=== PATIENT | female | born 1945 | race American Indian/Alaskan Native ===

== ENCOUNTER 2021-08-24 13:55 | Inpatient (IN) | payer BC, MEDICARE ==
[2021-08-24 22:57] LABS: Basophils % (Auto) 0.4 % (0.0-1.8); Hematocrit 34.7 % (30.3-42.9); Hemoglobin 11.3 gm/dl (10.1-14.3); Mean Corpuscular HGB Conc 33 % (30-34); Mean Corpuscular Volume 92 fl (79-97); Monocytes # (Auto) 0.6 K/mm3 (0.0-0.8); Monocytes % (Auto) 7.8 % (0.0-7.3); Platelet Count 423 K/mm3 (140-440); Red Blood Count 3.79 M/mm3 (3.65-5.03); Red Cell Distribution Width 14.6 % (13.2-15.2)
[2021-08-24 23:14] LABS: Albumin 3.3 g/dL (3.9-5); Calcium 9.7 mg/dL (8.4-10.2)
[2021-08-25] MEDS ORDERED: SODIUM CHLORIDE 0.9% 500 ML 500 ML IV ONE (02:35)
[2021-08-25] MEDS ORDERED: SODIUM CHLORIDE 0.9% 1000 ML 1,000 ML IV ONE (02:37)
--- NOTE | 2021-08-25 02:38 | Emergency Department Report ---
ED General Adult HPI - General Chief complaint: Weakness Stated complaint: DIZZY/LOSS 25 POUNDS Time Seen by Provider: 08/25/21 02:22 Source: patient, family, RN notes reviewed, old records reviewed Mode of arrival: Wheelchair Limitations: No Limitations - History of Present Illness Initial comments: The patient was evaluated in the emergency department for symptoms described in the history of present illness. He/she was evaluated in the context of the global COVID-19 pandemic, which necessitated consideration that the patient might be at risk for infection with the virus that causes COVID-19. Institutional protocols and algorithms that pertain to the evaluation of patients at risk for COVID-19 are in a state of rapid change based on informati on released by regulatory bodies including the CDC and federal and state organizations. These policies and algorithms were followed during the patient's care in the emergency department. Please note that these policies, procedures and recommendations changed on a rapid basis. This is a 76-year-old female, with a history of hypertension, who presents to the emergency room with a complaint of dizziness and unsteady gait for 7 to 10 days, and right-sided abdominal pain for about 1 month. No headache, neck pain, chest pain, loss of vision, hematemesis, bright red blood per rectum, and she denies travel, surgery, immobilization, DVT/PE risk factors. -: Gradual, days(s) Location: abdomen Consistency: intermittent Improves with: none Worsens with: none - Related Data Allergies Allergy/AdvReac Type Severity Reaction Status Date / Time No Known Allergies Allergy Unverified 08/24/21 22:22 ED Review of Systems ROS: Stated complaint: DIZZY/LOSS 25 POUNDS Other details as noted in HPI Constitutional: malaise. denies: fever Eyes: denies: eye discharge ENT: denies: epistaxis Respiratory: denies: cough Cardiovascular: denies: chest pain, palpitations Gastrointestinal: abdominal pain. denies: nausea, vomiting, diarrhea Genitourinary: denies: dysuria Musculoskeletal: denies: back pain Neurological: weakness, abnormal gait ED Past Medical Hx - Past Medical History Hx Hypertension: Yes Hx Diabetes: Yes - Surgical History Past Surgical History?: No ED Physical Exam - General Limitations: Physical Limitation General appearance: alert, in no apparent distress - Head Head exam: Present: atraumatic, normocephalic - Eye Eye exam: Present: normal appearance, EOMI. Absent: nystagmus - ENT ENT exam: Present: normal exam, normal orophraynx, mucous membranes moist, normal external ear exam - Neck Neck exam: Present: normal inspection, full ROM. Absent: tenderness, meningism us - Respiratory Respiratory exam: Present: normal lung sounds bilaterally. Absent: respiratory distress, wheezes, rales, rhonchi, stridor, decreased breath sounds - Cardiovascular Cardiovascular Exam: Present: regular rate, normal rhythm, normal heart sounds. Absent: bradycardia, tachycardia, irregular rhythm, systolic murmur, diastolic murmur, rubs, gallop - GI/Abdominal GI/Abdominal exam: Present: soft. Absent: distended, tenderness, guarding, rebound, rigid, pulsatile mass - Extremities Exam Extremities exam: Present: normal inspection, full ROM, other (2+ pulses noted in the bilateral upper and lower extremities. There is no palpable cord. negative Homans sign. Muscular compartments are soft. The pelvis is stable.). Absent: pedal edema, calf tenderness - Back Exam Back exam: Present: normal inspection. Absent: tenderness, CVA tenderness (R), CVA tenderness (L), paraspinal tenderness, vertebral tenderness - Neurological Exam Neurological exam: Present: alert (There is no past-pointing. There is normal [id number]-chpk.), other (No facial droop. Tongue midline. Extraocular movements intact bilaterally. Facial sensation intact to light touch in V1, V2, V3 distribution bilaterally. 5 and a 5 strength in 4 extremities. Sensation intac t to light touch in 4 extremities.) - Psychiatric Psychiatric exam: Present: normal affect, normal mood - Skin Skin exam: Present: warm, dry, intact, normal color. Absent: rash ED Course Vital Signs 08/24/21 08/25/21 08/25/21 16:14 02:35 02:40 Temperature 97.5 F L Pulse Rate 123 H 84 79 Respiratory 18 12 Rate Blood Pressure 137/68 Blood Pressure 114/62 [Right] O2 Sat by Pulse 100 Oximetry 08/25/21 08/25/21 08/25/21 02:45 03:05 03:11 Temperature 98 F Pulse Rate 85 83 73 Respiratory 16 15 16 Rate Blood Pressure 114/62 114/62 108/57 Blood Pressure [Right] O2 Sat by Pulse Oximetry 08/25/21 08/25/21 08/25/21 03:15 03:16 03:31 Temperature Pulse Rate 87 87 Respiratory 12 16 Rate Blood Pressure 108/57 117/60 Blood Pressure [Right] O2 Sat by Pulse 94 100 Oximetry 08/25/21 08/25/21 08/25/21 03:45 04:01 04:15 Temperature Pulse Rate 104 H 89 96 H Respiratory 14 13 11 L Rate Blood Pressure 114/62 147/67 147/67 Blood Pressure [Right] O2 Sat by Pulse 94 100 93 Oximetry 08/25/21 08/25/21 08/25/21 04:31 04:45 05:01 Temperature Pulse Rate 87 88 84 Respiratory 13 15 14 Rate Blood Pressure 128/73 128/73 99/57 Blood Pressure [Right] O2 Sat by Pulse 100 100 100 Oximetry 08/25/21 08/25/21 05:15 05:31 Temperature Pulse Rate 91 H 87 Respiratory 14 17 Rate Blood Pressure 99/57 103/57 Blood Pressure [Right] O2 Sat by Pulse 100 99 Oximetry - Reevaluation(s) Reevaluation #1: 08/25/21 04:51 Differential diagnosis, include not limited to: Orthostasis, vagal event, structural cardiac disease, electrolyte derangement, dehydration, pneumonia, UTI, subacute stroke, colitis, diverticulitis, renal colic, appendicitis Assessment and plan: 76-year-old female with 2 complaints. First complaint is unsteady gait for 7 to 10 days She has a GCS of 15. Not a tPA candidate given that symptoms present for greate r than 4.[address] scan of the brain is negative for acute findings. Hold aspirin given concern for potential surgical condition with telemetry. Laboratory studies reviewed and appreciated. X-ray of the chest is unremarkable. Urinalysis is pending Right-sided abdominal pain is present for about a month. CT scan abdomen pelvis demonstrated hepatic abnormalities, possible choledocholithiasis, with pneumobilia. Contacted general surgery on-call, and gastroenterology on-call, Snow Tate and Dr Pearson, respectively. Discussed the patient's history, physical, laboratory studies and imaging studies and clinical impression. They will both follow in consultation. At this point in time, I think an abscess or acute infectious pathology is less likely, and I think malignancy is more likely. Nevertheless, we will cover with appropriate antibiotics, and make n.p.o. at this time. Coagulation parameters will be obtained. Awaiting callback from hospital physician to arrange admission. 08/25/21 04:52 08/25/21 05:56 Dr Shane Barahona to admit to [facility] ED Medical Decision Making - Lab Data Result diagrams: 08/24/21 22:37 08/24/21 22:37 Vital Signs 08/24/21 08/25/21 08/25/21 16:14 02:35 02:40 Temperature 97.5 F L Pulse Rate 123 H 84 79 Respiratory 18 12 Rate Blood Pressure 137/68 Blood Pressure 114/62 [Right] O2 Sat by Pulse 100 Oximetry 08/25/21 08/25/21 08/25/21 02:45 03:05 03:11 Temperature 98 F Pulse Rate 85 83 73 Respiratory 16 15 16 Rate Blood Pressure 114/62 114/62 108/57 Blood Pressure [Right] O2 Sat by Pulse Oximetry 08/25/21 08/25/21 03:15 03:16 Temperature Pulse Rate 87 Respiratory 12 Rate Blood Pressure 108/57 Blood Pressure [Right] O2 Sat by Pulse 94 Oximetry Lab Results 08/24/21 08/24/21 08/25/21 Range/Units 22:37 22:37 03:13 WBC 7.4 (4.5-11.0) K/mm3 RBC 3.79 (3.65-5.03) M/mm3 Hgb 11.3 (10.1-14.3) gm/dl Hct 34.7 (30.3-42.9) % MCV 92 (79-97) fl MCH 30 (28-32) pg MCHC 33 (30-34) % RDW 14.6 (13.2-15.2) % Plt Count 423 (140-440) K/mm3 Lymph % (Auto) 13.0 L (13.4-35.0) % Crawford % (Auto) 7.8 H (0.0-7.3) % Eos % (Auto) 0.0 (0.0-4.3) % Baso % (Auto) 0.4 (0.0-1.8) % Lymph # (Auto) 1.0 L (1.2-5.4) K/mm3 Crawford # (Auto) 0.6 (0.0-0.8) K/mm3 Eos # (Auto) 0.0 (0.0-0.4) K/mm3 Baso # (Auto) 0.0 (0.0-0.1) K/mm3 Seg Neutrophils % 78.8 H (40.0-70.0) % Seg Neutrophils # 5.8 (1.8-7.7) K/mm3 Sodium 136 L (137-145) mmol/L Potassium 4.1 (3.6-5.0) mmol/L Chloride 93.7 L (98-107) mmol/L Carbon Dioxide 20 L (22-30) mmol/L Anion Gap 26 mmol/L BUN 29 H (7-17) mg/dL Creatinine 1.3 H (0.6-1.2) mg/dL Estimated GFR 40 ml/min BUN/Creatinine Ratio 22 % Glucose 148 H (65-100) mg/dL Calcium 9.7 (8.4-10.2) mg/dL Magnesium 1.80 (1.7-2.3) mg/dL Total Bilirubin 0.40 (0.1-1.2) mg/dL AST 34 (5-40) units/L ALT 24 (7-56) units/L Alkaline Phosphatase 290 H (35-129) units/L Total Creatine Kinase 51 (30-135) units/L Troponin T (0.00-0.029) ng/mL Total Protein 6.9 (6.3-8.2) g/dL Albumin 3.3 L (3.9-5) g/dL Albumin/Globulin Ratio 0.9 % TSH (0.270-4.200) mlU/mL 08/25/21 08/25/21 Range/Units 03:13 03:13 WBC (4.5-11.0) K/mm3 RBC (3.65-5.03) M/mm3 Hgb (10.1-14.3) gm/dl Hct (30.3-42.9) % MCV (79-97) fl MCH (28-32) pg MCHC (30-34) % RDW (13.2-15.2) % Plt Count (140-440) K/mm3 Lymph % (Auto) (13.4-35.0) % Crawford % (Auto) (0.0-7.3) % Eos % (Auto) (0.0-4.3) % Baso % (Auto) (0.0-1.8) % Lymph # (Auto) (1.2-5.4) K/mm3 Crawford # (Auto) (0.0-0.8) K/mm3 Eos # (Auto) (0.0-0.4) K/mm3 Baso # (Auto) (0.0-0.1) K/mm3 Seg Neutrophils % (40.0-70.0) % Seg Neutrophils # (1.8-7.7) K/mm3 Sodium (137-145) mmol/L Potassium (3.6-5.0) mmol/L Chloride (98-107) mmol/L Carbon Dioxide (22-30) mmol/L Anion Gap mmol/L BUN (7-17) mg/dL Creatinine (0.6-1.2) mg/dL Estimated GFR ml/min BUN/Creatinine Ratio % Glucose (65-100) mg/dL Calcium (8.4-10.2) mg/dL Magnesium (1.7-2.3) mg/dL Total Bilirubin (0.1-1.2) mg/dL AST (5-40) units/L ALT (7-56) units/L Alkaline Phosphatase (35-129) units/L Total Creatine Kinase (30-135) units/L Troponin T < 0.010 (0.00-0.029) ng/mL Total Protein (6.3-8.2) g/dL Albumin (3.9-5) g/dL Albumin/Globulin Ratio % TSH 2.440 (0.270-4.200) mlU/mL - EKG Data -: EKG Interpreted by Ca EKG shows normal: sinus rhythm Rate: normal - EKG Data 08/25/21 04:48 The EKG is interpreted at 22: 34 Sinus rhythm, rate 82 bpm. Normal axis, normal P wave axis, motion artifact. QTC 4 3 ms. Low voltage. Poor R wave progression. Not a STEMI. No prior for comparison - Radiology Data Radiology results: pending, report reviewed, image reviewed CHEST 1 VIEW INDICATION / CLINICAL INFORMATION: weak dizzy. COMPARISON: None available. FINDINGS: SUPPORT DEVICES: None. HEART / MEDIASTINUM: No significant abnormality. LUNGS / PLEURA: No significant pulmonary or pleural abnormality. No pneumothorax. ADDITIONAL FINDINGS: No significant additional findings. IMPRESSION: 1. No acute findings. Signer Name: Cole Rosa MD Signed: 08/25/2021 2:35 AM Workstation Name: [id number] CT HEAD WITHOUT CONTRAST INDICATION / CLINICAL INFORMATION: dizzy w unsteady gait. TECHNIQUE: All CT scans at this location are performed using CT dose reduction for ALARA by means of automated exposure control. COMPARISON: None available. FINDINGS: HEMORRHAGE: None. EXTRA-AXIAL SPACES: Normal in size and morphology for the patient's age. VENTRICULAR SYSTEM: Normal in size and morphology for the patient's age. CEREBRAL PARENCHYMA: Mild bilateral basal ganglia calcifications. Mild periventricular microangiopathy No significant abnormality. No acute territorial infarct. MIDLINE SHIFT OR HERNIATION: None. CEREBELLUM / BRAINSTEM: No significant abnormality. ORBITS: Normal as visualized. SOFT TISSUES of HEAD: No significant abnormality. CALVARIUM: No significant abnormality. PARANASAL SINUSES / MASTOID AIR CELLS: Normal as visualized. ADDITIONAL FINDINGS: None. IMPRESSION: 1. No acute intracranial abnormality. 2. Mild microangiopathy Signer Name: Cole Rosa MD Signed: 08/25/2021 2:26 AM Workstation Name: [id number] CT ABDOMEN AND PELVIS WITHOUT CONTRAST INDICATION: rlq abd pain. TECHNIQUE: Axial CT images were obtained through the abdomen and pelvis without IV contrast. All CT scans at this location are performed using CT dose reduction for [employer] by means of automated exposure control. COMPARISON: None available. FINDINGS: LOWER CHEST: No significant abnormality. LIVER: Ill-defined 2.5 cm hypodense lesion posterior hepatic segment image 57 ill-defined 3 cm hypodense lesion anterior hepatic dome image 27. GALLBLADDER: Cholelithiasis BILE DUCTS: Large 2.2 cm stone possibly within distal common bile duct with moderate amount of pneumobilia noted. PANCREAS: No significant abnormality. SPLEEN: No significant abnormality. ADRENALS: No significant abnormality. RIGHT KIDNEY and URETER: No significant abnormality. LEFT KIDNEY and URETER: No significant abnormality. STOMACH and SMALL BOWEL: No significant abnormality. COLON: No significant abnormality. APPENDIX: No significant abnormality. PERITONEUM: No free fluid. No free air. No fluid collection. LYMPH NODES: No significant adenopathy. AORTA and ARTERIES: No significant abnormality. IVC and VEINS: No significant abnormality. URINARY BLADDER: No significant abnormality. REPRODUCTIVE ORGANS: No significant abnormality. ADDITIONAL FINDINGS: None. SKELETAL SYSTEM: No significant abnormality. IMPRESSION: 1. Choledocholithiasis with large distal common bile duct stone and moderate pneumobilia 2. 2 ill- defined hypodense lesions posterior hepatic segment and anterior hepatic dome likely represent hepatic abscesses. Hepatic metastases are considered less likely Signer Name: Cole Rosa MD Signed: 08/25/2021 2:33 AM Workstation Name: [id number] Critical care attestation.: If time is entered above; I have spent that time in minutes in the direct care of this critically ill patient, excluding procedure time. ED Disposition Clinical Impression: Right sided abdominal pain, Dizziness, Choledocholithiasis, Abnormal computed tomography of abdomen and pelvis Disposition: 09 ADMITTED INPATIENT Is pt being admited?: Yes Does the pt Need Aspirin: No Condition: Good
--- NOTE | 2021-08-25 03:31 | Cat Scan Report ---
CT HEAD WITHOUT CONTRAST INDICATION / CLINICAL INFORMATION: dizzy w unsteady gait. TECHNIQUE: All CT scans at this location are performed using CT dose reduction for ALARA by means of automated e xposure control. COMPARISON: None available. FINDINGS: HEMORRHAGE: None. EXTRA-AXIAL SPACES: Normal in size and morphology for the patient's age. VENTRICULAR SYSTEM: Normal in size and morphology for the patient's age. CEREBRAL PARENCHYMA: Mild bilateral basal ganglia calcifications. Mild periventricular microangiopath y No significant abnormality. No acute territorial infarct. MIDLINE SHIFT OR HERNIATION: None. CEREBELLUM / BRAINSTEM: No significant abnormality. ORBITS: Normal as visualized. SOFT TISSUES of HEAD: No significant abnormality. CALVARIUM: No significant abnormality. PARANASAL SINUSES / MASTOID AIR CELLS: Normal as visualized. ADDITIONAL FINDINGS: None. IMPRESSION: 1. No acute intracranial abnormality. 2. Mild microangiopathy Signer Name: Cole Rosa MD Signed: 08/25/2021 3:26 AM Workstation Name: [id number]
--- NOTE | 2021-08-25 03:37 | Cat Scan Report ---
CT ABDOMEN AND PELVIS WITHOUT CONTRAST INDICATION: rlq abd pain. TECHNIQUE: Axial CT images were obtained through the abdomen and pelvis without IV contrast. All CT scans at [facility] location are performed using CT dose reduction for ALARA by means of automated exposure control. COMPARISON: None available. FINDINGS: LOWER CHEST: No significant abnormality. LIVER: Ill-defined 2.5 cm hypodense lesion posterior hepatic segment image 57 ill-defined 3 cm hypode nse lesion anterior hepatic dome image 27. GALLBLADDER: Cholelithiasis BILE DUCTS: Large 2.2 cm stone possibly within distal common bile duct with moderate amount of pneumo bilia noted. PANCREAS: No significant abnormality. SPLEEN: No significant abnormality. ADRENALS: No significant abnormality. RIGHT KIDNEY and URETER: No significant abnormality. LEFT KIDNEY and URETER: No significant abnormality. STOMACH and SMALL BOWEL: No significant abnormality. COLON: No significant abnormality. APPENDIX: No significant abnormality. PERITONEUM: No free fluid. No free air. No fluid collection. LYMPH NODES: No significant adenopathy. AORTA and ARTERIES: No significant abnormality. IVC and VEINS: No significant abnormality. URINARY BLADDER: No significant abnormality. REPRODUCTIVE ORGANS: No significant abnormality. ADDITIONAL FINDINGS: None. SKELETAL SYSTEM: No significant abnormality. IMPRESSION: 1. Choledocholithiasis with large distal common bile duct stone and moderate pneumobilia 2. 2 ill-defined hypodense lesions posterior hepatic segment and anterior hepatic dome likely represe nt hepatic abscesses. Hepatic metastases are considered less likely Signer Name: Cole Rosa MD Signed: 08/25/2021 3:33 AM Workstation Name: [id number]
--- NOTE | 2021-08-25 03:39 | XRay Report ---
CHEST 1 VIEW INDICATION / CLINICAL INFORMATION: weak dizzy. COMPARISON: None available. FINDINGS: SUPPORT DEVICES: None. HEART / MEDIASTINUM: No significant abnormality. LUNGS / PLEURA: No significant pulmonary or pleural abnormality. No pneumothorax. ADDITIONAL FINDINGS: No significant additional findings. IMPRESSION: 1. No acute findings. Signer Name: Cole Rosa MD Signed: 08/25/2021 3:35 AM Workstation Name: [id number]
[2021-08-25] MEDS ORDERED: PIPERACIL/TAZOBACTA 4.5/NS 100 4.5 GM/100 ML VIAL IV ONE (04:22)
[2021-08-25 05:47] LABS: INR 0.96 (0.87-1.13)
[2021-08-25 05:53] LABS: Partial Thromboplastin Time 30.3 Sec. (24.2-36.6)
--- NOTE | 2021-08-25 06:12 | Ultrasound Report ---
LIMITED RUQ ABDOMINAL ULTRASOUND INDICATION / CLINICAL INFORMATION: cbd stone pneumonia bilia. COMPARISON: CT abdomen pelvis 08/25/2021 FINDINGS: PANCREAS: Visualized portions show no significant abnormality. ABDOMINAL AORTA: No significant abnormality. IVC: No significant abnormality.. LIVER: The liver measures 13.2 cm in length. Multiple solid liver masses. Moderate amount of pneumob faustino GALLBLADDER: Gallstones. Not well visualized sonographically secondary to heterogeneous liver pneumob faustino BILE DUCTS: Moderate pneumobilia. Common bile duct measures 4 mm. RIGHT KIDNEY: No significant abnormality visualized. FREE FLUID: None. ADDITIONAL FINDINGS: None. IMPRESSION: 1. Cholelithiasis . Gallbladder poorly visualized sonographically. Contrast-enhanced CT would be usef for further characterization. 2. Pneumobilia 3. Multiple solid liver masses Signer Name: Cole Rosa MD Signed: 08/25/2021 6:07 AM Workstation Name: [id number]
[2021-08-25] MEDS ORDERED: ONDANSETRON 4 MG/2 ML INJ IV PRN (07:13)
[2021-08-25] MEDS ORDERED: ALBUTEROL 2.5 MG/3 ML NEBU IH PRN (07:13)
[2021-08-25] MEDS ORDERED: NALOXONE 0.4 MG/1 ML INJ IV PRN (07:13)
--- NOTE | 2021-08-25 07:20 | History and Physical Report ---
History of Present Illness Date of examination: 08/25/21 Date of admission: 08/25/21 Medications and Allergies Allergies Allergy/AdvReac Type Severity Reaction Status Date / Time No Known Allergies Allergy Unverified 08/24/21 22:22 Active Meds: Active Medications Acetaminophen (Acetaminophen 325 Mg Tab) 650 mg PO Q4H PRN PRN Reason: Pain MILD(1-3)/Fever >100.5/[place] Albuterol (Albuterol 2.5 Mg/3 Ml Nebu) 2.5 mg IH Q4HRT PRN PRN Reason: Shortness Of Breath Famotidine (Famotidine 20 Mg/2 Ml Inj) 20 mg IV BID PK Heparin Sodium (Porcine) (Heparin 5,000 Unit/1 Ml Vial) 5,000 unit SUB-Q Q8HR PK Dextrose/Sodium Chloride (D5ns) 1,000 mls @ 100 mls/hr IV DIRECT PK Morphine Sulfate (Morphine 2 Mg/1 Ml Inj) 2 mg IV Q4H PRN PRN Reason: Pain, Moderate (4-6) Naloxone HCl (Naloxone 0.4 Mg/1 Ml Inj) 0.1 mg IV Q2MIN PRN PRN Reason: Res Rate </= 8 or 02 SAT < 92% Ondansetron HCl (Ondansetron 4 Mg/2 Ml Inj) 4 mg IV Q4H PRN PRN Reason: Nausea And Vomiting Sodium Chloride (Sodium Chloride 0.9% 10 Ml Flush Syringe) 10 ml IV BID PK Sodium Chloride (Sodium Chloride 0.9% 10 Ml Flush Syringe) 10 ml IV PRN PRN PRN Reason: LINE FLUSH Exam - Constitutional Vitals: Temp Pulse Resp BP Pulse Ox 98 F 84 14 117/63 100 08/25/21 03:11 08/25/21 06:45 08/25/21 06:45 08/25/21 06:45 08/25/21 06:45 HEART Score - HEART Score Troponin: Troponin T < 0.010 ng/mL (0.00-0.029) 08/25/21 03:13 Results - Labs CBC & Chem 7: 08/24/21 22:37 08/24/21 22:37 Labs: Laboratory Last Values WBC 7.4 K/mm3 (4.5-11.0) 08/24/21 22:37 RBC 3.79 M/mm3 (3.65-5.03) 08/24/21 22:37 Hgb 11.3 gm/dl (10.1-14.3) 08/24/21 22:37 Hct 34.7 % (30.3-42.9) 08/24/21 22:37 MCV 92 fl (79-97) 08/24/21 22:37 MCH 30 pg (28-32) 08/24/21 22:37 MCHC 33 % (30-34) 08/24/21 22:37 RDW 14.6 % (13.2-15.2) 08/24/21 22:37 Plt Count 423 K/mm3 (140-440) 08/24/21 22:37 Lymph % (Auto) 13.0 % (13.4-35.0) L 08/24/21 22:37 Ballard % (Auto) 7.8 % (0.0-7.3) H 08/24/21 22:37 Eos % (Auto) 0.0 % (0.0-4.3) 08/24/21 22:37 Baso % (Auto) 0.4 % (0.0-1.8) 08/24/21 22:37 Lymph # (Auto) 1.0 K/mm3 (1.2-5.4) L 08/24/21 22:37 Ballard # (Auto) 0.6 K/mm3 (0.0-0.8) 08/24/21 22:37 Eos # (Auto) 0.0 K/mm3 (0.0-0.4) 08/24/21 22:37 Baso # (Auto) 0.0 K/mm3 (0.0-0.1) 08/24/21 22:37 Seg Neutrophils % 78.8 % (40.0-70.0) H 08/24/21 22:37 Seg Neutrophils # 5.8 K/mm3 (1.8-7.7) 08/24/21 22:37 PT 13.8 Sec. (12.2-14.9) 08/25/21 05:12 INR 0.96 (0.87-1.13) 08/25/21 05:12 APTT 30.3 Sec. (24.2-36.6) 08/25/21 05:12 Sodium 136 mmol/L (137-145) L 08/24/21 22:37 Potassium 4.1 mmol/L (3.6-5.0) 08/24/21 22:37 Chloride 93.7 mmol/L (98-107) L 08/24/21 22:37 Carbon Dioxide 20 mmol/L (22-30) L 08/24/21 22:37 Anion Gap 26 mmol/L 08/24/21 22:37 BUN 29 mg/dL (7-17) H 08/24/21 22:37 Creatinine 1.3 mg/dL (0.6-1.2) H 08/24/21 22:37 Estimated GFR 40 ml/min 08/24/21 22:37 BUN/Creatinine Ratio 22 % 08/24/21 22:37 Glucose 148 mg/dL (65-100) H 08/24/21 22:37 Lactic Acid 1.50 mmol/L (0.7-2.0) 08/25/21 05:29 Calcium 9.7 mg/dL (8.4-10.2) 08/24/21 22:37 Magnesium 1.80 mg/dL (1.7-2.3) 08/25/21 03:13 Total Bilirubin 0.40 mg/dL (0.1-1.2) 08/24/21 22:37 AST 34 units/L (5-40) 08/24/21 22:37 ALT 24 units/L (7-56) 08/24/21 22:37 Alkaline Phosphatase 290 units/L (35-129) H 08/24/21 22:37 Total Creatine Kinase 51 units/L (30-135) 08/25/21 03:13 Troponin T < 0.010 ng/mL (0.00-0.029) 08/25/21 03:13 Total Protein 6.9 g/dL (6.3-8.2) 08/24/21 22:37 Albumin 3.3 g/dL (3.9-5) L 08/24/21 22:37 Albumin/Globulin Ratio 0.9 % 08/24/21 22:37 TSH 2.440 mlU/mL (0.270-4.200) 08/25/21 03:13 Assessment and Plan Assessment and plan: CTA/P 1. Choledocholithiasis with large distal common bile duct stone and moderate pneumobilia 2. 2 ill-defined hypodense lesions posterior hepatic segment and anterior hepatic dome likely represent hepatic abscesses. Hepatic metastases are considered less likely Ultrasound Abdomen 1. Cholelithiasis . Gallbladder poorly visualized sonographically. Contrast- enhanced CT would be useful for further characterization. 2. Pneumobilia 3. Multiple solid liver masses CXR 1. No acute findings.
[2021-08-25] MEDS ORDERED: D5W/0.9% NACL 1,000 ML IV SCH (08:00)
[2021-08-25] MEDS ORDERED: DEXTROSE 50% IN WATER (25GM) 50 ML SYRINGE IV PRN (08:23)
[2021-08-25 09:33] LABS: Calcium 8.3 mg/dL (8.4-10.2)
[2021-08-25] MEDS: FAMOTIDINE 20 MG/2 ML INJ IV SCH (09:48)
--- NOTE | 2021-08-25 09:58 | History and Physical Report ---
<ИВАН EARL - Last Filed: 08/25/21 16:24> History of Present Illness Date of examination: 08/25/21 Date of admission: 08/25/21 07:14 Chief complaint: Dizziness, unsteady gait, and right-sided abdominal pain History of present illness: This is a 76-year-old female with known past medical history of HTN and DM presented to the emergency room complaining of dizziness, unsteady gait for over a week, and right-sided abdominal pain for about 1 month. Patient reported that he symptoms started about a month ago when she started to experience intermittent sharp right abdominal pain on her right side. She stated that she noticed that the pain usually occurs in the evening and at night. She reported that the pain as an intermittent stabbing pain that is mainly localized on her right side. No alleviating nor exacerbating factors reported, and the pain is not associated with foods. Patient also reported dizziness/lightheadedness and unsteady gait that started about a week ago, poor appetite and over 25lbs of unintentional weight loss in the past couple of months. She denied any nausea or vomiting, no melena, no hematochezia, no fevers, nor night sweats, nor chills. Patient denied any direct contact with anyone who is sick or with known exposure to COVID 19. Per patient she received Both COVID vaccines and a recent booster. Patient was seen and examined in the ED. Patient is hemodynamically stable on RA. Denied any pain nor any discomfort at this time. No signs of any acute distress noted. Laboratory studies and imagings reviewed. CXR 1. No acute findings. CT head/Brain 1. No acute intracranial abnormality. 2. Mild microangiopathy CTA/P 1. Choledocholithiasis with large distal common bile duct stone and moderate pneumobilia 2. 2 ill-defined hypodense lesions posterior hepatic segment and anterior hepatic dome likely represent hepatic abscesses. Hepatic metastases are considered less likely Ultrasound Abdomen 1. Cholelithiasis . Gallbladder poorly visualized sonographically. Contrast- enhanced CT would be useful for further characterization. 2. Pneumobilia 3. Multiple solid liver masses General Surgery and GI already consulted in the ED. Patient is being admitted to the Med-Surg floor for further evaluation. Past History Past Medical History: diabetes, hypertension Past Surgical History: No surgical history Social history: alcohol abuse (Quit over 20 years ago) Family history: hypertension Medications and Allergies Allergies Allergy/AdvReac Type Severity Reaction Status Date / Time No Known Allergies Allergy Unverified 08/24/21 22:22 Home Medications Medication Instructions Recorded Confirmed Last Taken Type Amlodipine Besylate/Benazepril 1 each PO 08/25/21 1 Day Ago History [Amlodipine-Benazepril 5-40 mg] ~08/24/21 Active Meds: Active Medications Acetaminophen (Acetaminophen 325 Mg Tab) 650 mg PO Q4H PRN PRN Reason: Pain MILD(1-3)/Fever >100.5/[place] Albuterol (Albuterol 2.5 Mg/3 Ml Nebu) 2.5 mg IH Q4HRT PRN PRN Reason: Shortness Of Breath Dextrose (Dextrose 50% In Water (25gm) 50 Ml Syringe) 50 ml IV Q30MIN PRN; Protocol PRN Reason: Hypoglycemia Famotidine (Famotidine 20 Mg/2 Ml Inj) 20 mg IV DAILY PK Last Admin: 08/25/21 09:48 Dose: Not Given Heparin Sodium (Porcine) (Heparin 5,000 Unit/1 Ml Vial) 5,000 unit SUB-Q Q8HR PK Dextrose/Sodium Chloride (D5ns) 1,000 mls @ 100 mls/hr IV DIRECT PK Last Admin: 08/25/21 08:30 Dose: 100 mls/hr Insulin Human Regular (Insulin Regular, Human 100 Units/1 Ml) 0 units SUB-Q ACHS PK; Protocol Morphine Sulfate (Morphine 2 Mg/1 Ml Inj) 2 mg IV Q4H PRN PRN Reason: Pain, Moderate (4-6) Naloxone HCl (Naloxone 0.4 Mg/1 Ml Inj) 0.1 mg IV Q2MIN PRN PRN Reason: Res Rate </= 8 or 02 SAT < 92% Ondansetron HCl (Ondansetron 4 Mg/2 Ml Inj) 4 mg IV Q4H PRN PRN Reason: Nausea And Vomiting Sodium Chloride (Sodium Chloride 0.9% 10 Ml Flush Syringe) 10 ml IV BID PK Sodium Chloride (Sodium Chloride 0.9% 10 Ml Flush Syringe) 10 ml IV PRN PRN PRN Reason: LINE FLUSH Review of Systems All systems: negative Constitutional: weight loss, weakness, poor appetite, no fever, no chills, no sweats Ears, nose, mouth and throat: no headache, no vertigo Cardiovascular: lightheadedness, no chest pain, no orthopnea, no palpitations, no edema, no syncope, no leg edema Respiratory: no cough, no cough with sputum, no shortness of breath, no wheezing Gastrointestinal: abdominal pain (Right Side), loss of appetite, no nausea, no vomiting, no diarrhea, no constipation, no hematemesis, no coffee ground emesis, no melena, no hematochezia Genitourinary Female: no pelvic pain, no hematuria Musculoskeletal: gait dysfunction, loss of height, no frequent falls Integumentary: no rash, no pruritis, no redness, no sores, no wounds Neurological: lack of coordination, gait dysfunction, no numbness, no tingling, no syncope, no tremors, no vertigo, no headaches Psychiatric: change in appetite (Poor appetite), no anxiety, no memory loss, no suicidal ideation, no hallucinations, no depression, no confusion Allergic/Immunologic: no allergic rhinitis, no wheezing Exam - Constitutional Vitals: Temp Pulse Resp BP Pulse Ox 98 F 97 H 12 112/40 99 08/25/21 03:11 08/25/21 08:01 08/25/21 08:01 08/25/21 08:01 08/25/21 08:01 General appearance: Present: no acute distress, cachectic - EENT Eyes: Present: PERRL, EOM intact ENT: hearing intact - Neck Neck: Present: supple, normal ROM - Respiratory Respiratory effort: normal Respiratory: bilateral: diminished - Cardiovascular Rhythm: regular Heart Sounds: Present: S1 & S2 - Extremities Extremities: no ischemia, pulses intact, pulses symmetrical Peripheral Pulses: within normal limits - Abdominal General gastrointestinal: Present: soft, non-distended, normal bowel sounds Female genitourinary: Present: deferred - Rectal Rectal Exam: deferred - Integumentary Integumentary: Present: clear, warm, dry - Musculoskeletal Musculoskeletal: generalized weakness - Psychiatric Psychiatric: appropriate mood/affect, cooperative - Neurologic Neurologic: CNII-XII intact, moves all extremities - Allied Health Allied health notes reviewed: nursing HEART Score - HEART Score Troponin: Troponin T < 0.010 ng/mL (0.00-0.029) 08/25/21 03:13 Results - Labs CBC & Chem 7: 08/24/21 22:37 08/25/21 08:04 Labs: Laboratory Last Values WBC 7.4 K/mm3 (4.5-11.0) 08/24/21 22:37 RBC 3.79 M/mm3 (3.65-5.03) 08/24/21 22:37 Hgb 11.3 gm/dl (10.1-14.3) 08/24/21 22:37 Hct 34.7 % (30.3-42.9) 08/24/21 22:37 MCV 92 fl (79-97) 08/24/21 22:37 MCH 30 pg (28-32) 08/24/21 22:37 MCHC 33 % (30-34) 08/24/21 22:37 RDW 14.6 % (13.2-15.2) 08/24/21 22:37 Plt Count 423 K/mm3 (140-440) 08/24/21 22:37 Lymph % (Auto) 13.0 % (13.4-35.0) L 08/24/21 22:37 [place] % (Auto) 7.8 % (0.0-7.3) H 08/24/21 22:37 Eos % (Auto) 0.0 % (0.0-4.3) 08/24/21 22:37 Baso % (Auto) 0.4 % (0.0-1.8) 08/24/21 22:37 Lymph # (Auto) 1.0 K/mm3 (1.2-5.4) L 08/24/21 22:37 [place] # (Auto) 0.6 K/mm3 (0.0-0.8) 08/24/21 22:37 Eos # (Auto) 0.0 K/mm3 (0.0-0.4) 08/24/21 22:37 Baso # (Auto) 0.0 K/mm3 (0.0-0.1) 08/24/21 22:37 Seg Neutrophils % 78.8 % (40.0-70.0) H 08/24/21 22:37 Seg Neutrophils # 5.8 K/mm3 (1.8-7.7) 08/24/21 22:37 PT 13.8 Sec. (12.2-14.9) 08/25/21 05:12 INR 0.96 (0.87-1.13) 08/25/21 05:12 APTT 30.3 Sec. (24.2-36.6) 08/25/21 05:12 Sodium 140 mmol/L (137-145) 08/25/21 08:04 Potassium 4.3 mmol/L (3.6-5.0) 08/25/21 08:04 Chloride 100.1 mmol/L (98-107) 08/25/21 08:04 Carbon Dioxide 20 mmol/L (22-30) L 08/25/21 08:04 Anion Gap 24 mmol/L 08/25/21 08:04 BUN 28 mg/dL (7-17) H 08/25/21 08:04 Creatinine 1.2 mg/dL (0.6-1.2) 08/25/21 08:04 Estimated GFR 53 ml/min 08/25/21 08:04 BUN/Creatinine Ratio 23 % 08/25/21 08:04 Glucose 97 mg/dL (65-100) 08/25/21 08:04 Lactic Acid 1.50 mmol/L (0.7-2.0) 08/25/21 05:29 Calcium 8.3 mg/dL (8.4-10.2) L 08/25/21 08:04 Magnesium 1.80 mg/dL (1.7-2.3) 08/25/21 03:13 Total Bilirubin 0.40 mg/dL (0.1-1.2) 08/24/21 22:37 AST 34 units/L (5-40) 08/24/21 22:37 ALT 24 units/L (7-56) 08/24/21 22:37 Alkaline Phosphatase 290 units/L (35-129) H 08/24/21 22:37 Total Creatine Kinase 51 units/L (30-135) 08/25/21 03:13 Troponin T < 0.010 ng/mL (0.00-0.029) 08/25/21 03:13 Total Protein 6.9 g/dL (6.3-8.2) 08/24/21 22:37 Albumin 3.3 g/dL (3.9-5) L 08/24/21 22:37 Albumin/Globulin Ratio 0.9 % 08/24/21 22:37 TSH 2.440 mlU/mL (0.270-4.200) 08/25/21 03:13 Microbiology: Microbiology 08/25/21 05:29 Peripheral/Venous Blood Culture - Preliminary Culture in Progress Assessment and Plan Assessment and plan: This is a 76-year- old female with known past medical history of HTN and DM admitted for abdominal pain probably due to choledocholithiasis vs pneumobilia vs liver masses #Choledocholithiasis with Stone #Multiple Solid Liver Masses- c/f malignancy - Noted on CT abd/pelvis- Choledocholithiasis with large distal common bile duct stone. - GI consulted - Keep patient NPO for now - MRI of the abdomen pending - Continuous IVF - PRN analgesia for pain control - General Surgery also consulted - Depends on MRI findings, might need ONC consult for further w/up #Moderate Pneumobilia #Possible Hepatic Abscesses - Noted on CT abd/pelvis - Patient is afebrile, hemodynamically stable, with no leukocytosis - Received X1 dose of IV Zosyn in the ED - Cultures pending - Hold off IV Abx for now - F/u on culture data - Continuous IVF - General Surgery consulted #Intermittent Abdominal Pain - Pain is sharp and localized on the right site, no associated with foods, no alleviating nor exacerbating factors - most likely due to above - No pain at time of assessment - Denied any N/V - PRN analgesia for pain #Hyponatremia #Dehydration - S/p IV resuscitation in the ED - NA improved post IV hydration - Continue IVF hydration - Strict intake and output #Hypertension - BP stable - Resume home meds once list is available - Continue blood pressure monitor per protocol - Maintain SBP less than 160 #Diabetes Mellitus - Per patientSabrina discontinue by PCP since weight loss - Low dose SSI ACHS - Avoid Hypoglycemia #Abnormal weight Loss - Probably due to poor appetite vs malignancy - Keep NPO for now, continue cont. IVF - R/o malignancy as discussed above #GI/DVT Prophylaxis - PPI- Pepcid - Heparin SubQ - SCDs to bilateral lower extremities while in bed #Advance Care Planning - Thoroughly discussed disease process, care plan, diagnoses, and prognosis with patient at the bedside. Patient is full code. Patient aknowledged understanding and agreement with current care plan. All questions and concerns were addressed at this time. - Patient reported that her next living relative in the [place] is her sister, Graciela Cortes. She voiced that in case she becomes incapacitated and unable to make her own decision, her sister knows her wishes. The high probability of a clinically significant, sudden or life threatening deterioration of the [multiple] system(s) required my full and direct attention, intervention and personal management. The aggregate critical care time was [90] minutes. This time is in addition to time spent performing reported procedures but includes the following: [x] Data Review and interpretation [x] Patient assessment and monitoring of vital signs [x] Documentation [x] Medication orders and management Disposition Plan: ICU Total Time Spent with Patient (Minutes): 90 Advance Directives: No Plan of care discussed with patient/family: Yes <REGLA MARISCAL - Last Filed: 08/26/21 07:16> History of Present Illness Date of admission: 08/25/21 07:14 Medications and Allergies Active Meds: Active Medications Acetaminophen (Acetaminophen 325 Mg Tab) 650 mg PO Q4H PRN PRN Reason: Pain MILD(1-3)/Fever >100.5/[place] Albuterol (Albuterol 2.5 Mg/3 Ml Nebu) 2.5 mg IH Q4HRT PRN PRN Reason: Shortness Of Breath Dextrose (Dextrose 50% In Water (25gm) 50 Ml Syringe) 50 ml IV Q30MIN PRN; Protocol PRN Reason: Hypoglycemia Famotidine (Famotidine 20 Mg/2 Ml Inj) 20 mg IV DAILY [facility] Last Admin: 08/25/21 09:48 Dose: Not Given Heparin Sodium (Porcine) (Heparin 5,000 Unit/1 Ml Vial) 5,000 unit SUB-Q Q8HR [facility] Last Admin: 08/26/21 05:06 Dose: 5,000 unit Insulin Human Regular (Insulin Regular, Human 100 Units/1 Ml) 0 units SUB-Q ACHS [facility]; Protocol Last Admin: 08/25/21 22:00 Dose: Not Given Morphine Sulfate (Morphine 2 Mg/1 Ml Inj) 2 mg IV Q4H PRN PRN Reason: Pain, Moderate (4-6) Naloxone HCl (Naloxone 0.4 Mg/1 Ml Inj) 0.1 mg IV Q2MIN PRN PRN Reason: Res Rate </= 8 or 02 SAT < 92% Ondansetron HCl (Ondansetron 4 Mg/2 Ml Inj) 4 mg IV Q4H PRN PRN Reason: Nausea And Vomiting Sodium Chloride (Sodium Chloride 0.9% 10 Ml Flush Syringe) 10 ml IV BID PK Last Admin: 08/25/21 21:32 Dose: 10 ml Sodium Chloride (Sodium Chloride 0.9% 10 Ml Flush Syringe) 10 ml IV PRN PRN PRN Reason: LINE FLUSH Exam - Constitutional Vitals: Temp Pulse Resp BP Pulse Ox 98.7 F 100 H 16 111/52 100 08/26/21 03:21 08/26/21 03:21 08/26/21 03:21 08/26/21 03:21 08/26/21 03:21 HEART Score - HEART Score Troponin: Troponin T < 0.010 ng/mL (0.00-0.029) 08/25/21 03:13 Results - Labs CBC & Chem 7: 08/24/21 22:37 08/25/21 08:04 Labs: Laboratory Last Values WBC 7.4 K/mm3 (4.5-11.0) 08/24/21 22:37 RBC 3.79 M/mm3 (3.65-5.03) 08/24/21 22:37 Hgb 11.3 gm/dl (10.1-14.3) 08/24/21 22:37 Hct 34.7 % (30.3-42.9) 08/24/21 22:37 MCV 92 fl (79-97) 08/24/21 22:37 MCH 30 pg (28-32) 08/24/21 22:37 MCHC 33 % (30-34) 08/24/21 22:37 RDW 14.6 % (13.2-15.2) 08/24/21 22:37 Plt Count 423 K/mm3 (140-440) 08/24/21 22:37 Lymph % (Auto) 13.0 % (13.4-35.0) L 08/24/21 22:37 [place] % (Auto) 7.8 % (0.0-7.3) H 08/24/21 22:37 Eos % (Auto) 0.0 % (0.0-4.3) 08/24/21 22:37 Baso % (Auto) 0.4 % (0.0-1.8) 08/24/21 22:37 Lymph # (Auto) 1.0 K/mm3 (1.2-5.4) L 08/24/21 22:37 [place] # (Auto) 0.6 K/mm3 (0.0-0.8) 08/24/21 22:37 Eos # (Auto) 0.0 K/mm3 (0.0-0.4) 08/24/21 22:37 Baso # (Auto) 0.0 K/mm3 (0.0-0.1) 08/24/21 22:37 Seg Neutrophils % 78.8 % (40.0-70.0) H 08/24/21 22:37 Seg Neutrophils # 5.8 K/mm3 (1.8-7.7) 08/24/21 22:37 PT 13.8 Sec. (12.2-14.9) 08/25/21 05:12 INR 0.96 (0.87-1.13) 08/25/21 05:12 APTT 30.3 Sec. (24.2-36.6) 08/25/21 05:12 Sodium 140 mmol/L (137-145) 08/25/21 08:04 Potassium 4.3 mmol/L (3.6-5.0) 08/25/21 08:04 Chloride 100.1 mmol/L (98-107) 08/25/21 08:04 Carbon Dioxide 20 mmol/L (22-30) L 08/25/21 08:04 Anion Gap 24 mmol/L 08/25/21 08:04 BUN 28 mg/dL (7-17) H 08/25/21 08:04 Creatinine 1.2 mg/dL (0.6-1.2) 08/25/21 08:04 Estimated GFR 53 ml/min 08/25/21 08:04 BUN/Creatinine Ratio 23 % 08/25/21 08:04 Glucose 97 mg/dL (65-100) 08/25/21 08:04 POC Glucose 88 mg/dL (70-105) 08/25/21 22:09 Lactic Acid 1.50 mmol/L (0.7-2.0) 08/25/21 05:29 Calcium 8.3 mg/dL (8.4-10.2) L 08/25/21 08:04 Magnesium 1.80 mg/dL (1.7-2.3) 08/25/21 03:13 Total Bilirubin 0.40 mg/dL (0.1-1.2) 08/24/21 22:37 AST 34 units/L (5-40) 08/24/21 22:37 ALT 24 units/L (7-56) 08/24/21 22:37 Alkaline Phosphatase 290 units/L (35-129) H 08/24/21 22:37 Total Creatine Kinase 51 units/L (30-135) 08/25/21 03:13 Troponin T < 0.010 ng/mL (0.00-0.029) 08/25/21 03:13 Total Protein 6.9 g/dL (6.3-8.2) 08/24/21 22:37 Albumin 3.3 g/dL (3.9-5) L 08/24/21 22:37 Albumin/Globulin Ratio 0.9 % 08/24/21 22:37 TSH 2.440 mlU/mL (0.270-4.200) 08/25/21 03:13 Urine Color Yellow (Yellow) 08/26/21 05:09 Urine Turbidity Clear (Clear) 08/26/21 05:09 Urine pH 5.0 (5.0-7.0) 08/26/21 05:09 Ur Specific [place] 1.020 (1.003-1.030) 08/26/21 05:09 Urine Protein <15 mg/dl mg/dL (Negative) 08/26/21 05:09 Urine Glucose (UA) >=500 mg/dL (Negative) 08/26/21 05:09 Urine Ketones 20 mg/dL (Negative) 08/26/21 05:09 Urine Blood Mod (Negative) 08/26/21 05:09 Urine Nitrite Neg (Negative) 08/26/21 05:09 Urine Bilirubin Neg (Negative) 08/26/21 05:09 Urine Urobilinogen < 2.0 mg/dL (<2.0) 08/26/21 05:09 Ur Leukocyte Esterase Mod (Negative) 08/26/21 05:09 Urine WBC (Auto) 33.0 /HPF (0.0-6.0) H 08/26/21 05:09 Urine RBC (Auto) 6.0 /HPF (0.0-6.0) 08/26/21 05:09 U Epithel Cells (Auto) 3.0 /HPF (0-13.0) 08/26/21 05:09 Urine Bacteria (Auto) 1+ /HPF (Negative) 08/26/21 05:09 Calcium Oxalate Crystal Few 08/26/21 05:09 Urine Mucus 2+ /HPF 08/26/21 05:09 Microbiology: Microbiology 08/25/21 06:02 Peripheral/Venous Blood Culture - Preliminary Culture in Progress 08/25/21 05:29 Peripheral/Venous Blood Culture - Preliminary Culture in Progress Pham/IV: Voiding Method Toilet Assessment and Plan Assessment and plan: I saw and evaluated the patient. I agree with the findings and the plan of care as documented in the Nurse Practitioner's~note, with the following corrections and additions.
--- NOTE | 2021-08-25 10:08 | Gastroenterology Consultation ---
History of Present Illness - Reason for Consult Consult date: 08/25/21 - History of Present Illness Ms. Fay is a 76 y/o F who presented to the ED with x6 wks of abd pain, lack of appetite, and dizziness. Pt reports that her abd pain began x6 wks ago as "a stomachache" with intermittent pain. She reports that x2 wks ago the pain became more constant. She states that it occurs every PM at around 5pm. Pain starts in her RUQ, migrates to her umbilical region, then back to her RLQ. Denies N/V. Denies abd pain at present. Denies alcohol use (reports stopping x20 yrs ago). Past History Family history: hypertension Medications and Allergies Allergies Allergy/AdvReac Type Severity Reaction Status Date / Time No Known Allergies Allergy Unverified 08/24/21 22:22 Active Meds: Active Medications Acetaminophen (Acetaminophen 325 Mg Tab) 650 mg PO Q4H PRN PRN Reason: Pain MILD(1-3)/Fever >100.5/[place] Albuterol (Albuterol 2.5 Mg/3 Ml Nebu) 2.5 mg IH Q4HRT PRN PRN Reason: Shortness Of Breath Dextrose (Dextrose 50% In Water (25gm) 50 Ml Syringe) 50 ml IV Q30MIN PRN; Protocol PRN Reason: Hypoglycemia Famotidine (Famotidine 20 Mg/2 Ml Inj) 20 mg IV DAILY PK Last Admin: 08/25/21 09:48 Dose: Not Given Heparin Sodium (Porcine) (Heparin 5,000 Unit/1 Ml Vial) 5,000 unit SUB-Q Q8HR PK Dextrose/Sodium Chloride (D5ns) 1,000 mls @ 100 mls/hr IV DIRECT PK Stop: 08/25/21 19:30 Last Admin: 08/25/21 08:30 Dose: 100 mls/hr Insulin Human Regular (Insulin Regular, Human 100 Units/1 Ml) 0 units SUB-Q ACHS PK; Protocol Morphine Sulfate (Morphine 2 Mg/1 Ml Inj) 2 mg IV Q4H PRN PRN Reason: Pain, Moderate (4-6) Naloxone HCl (Naloxone 0.4 Mg/1 Ml Inj) 0.1 mg IV Q2MIN PRN PRN Reason: Res Rate </= 8 or 02 SAT < 92% Ondansetron HCl (Ondansetron 4 Mg/2 Ml Inj) 4 mg IV Q4H PRN PRN Reason: Nausea And Vomiting Sodium Chloride (Sodium Chloride 0.9% 10 Ml Flush Syringe) 10 ml IV BID PK Sodium Chloride (Sodium Chloride 0.9% 10 Ml Flush Syringe) 10 ml IV PRN PRN PRN Reason: LINE FLUSH Review of Systems - Review of Systems Constitutional: poor appetite Gastrointestinal: abdominal pain, loss of appetite Exam - Constitutional Vital Signs: Temp Pulse Resp BP Pulse Ox 98 F 97 H 12 112/40 99 08/25/21 03:11 08/25/21 08:01 08/25/21 08:01 08/25/21 08:01 08/25/21 08:01 General appearance: no acute distress - EENT ENT: hearing intact - Gastrointestinal General gastrointestinal: Present: non-tender - Integumentary Integumentary: Present: clear, warm, dry - Neurologic Neurological: alert and oriented x3 - Labs CBC & Chem 7: 08/24/21 22:37 08/25/21 08:04 Lab Results: Laboratory Results - last 24 hr 08/24/21 08/24/21 08/25/21 22:37 22:37 03:13 WBC 7.4 RBC 3.79 Hgb 11.3 Hct 34.7 MCV 92 MCH 30 MCHC 33 RDW 14.6 Plt Count 423 Lymph % (Auto) 13.0 L [place] % (Auto) 7.8 H Eos % (Auto) 0.0 Baso % (Auto) 0.4 Lymph # (Auto) 1.0 L [place] # (Auto) 0.6 Eos # (Auto) 0.0 Baso # (Auto) 0.0 Seg Neutrophils % 78.8 H Seg Neutrophils # 5.8 PT INR APTT Sodium 136 L Potassium 4.1 Chloride 93.7 L Carbon Dioxide 20 L Anion Gap 26 BUN 29 H Creatinine 1.3 H Estimated GFR 40 BUN/Creatinine Ratio 22 Glucose 148 H Lactic Acid Calcium 9.7 Magnesium 1.80 Total Bilirubin 0.40 AST 34 ALT 24 Alkaline Phosphatase 290 H Total Creatine Kinase 51 Troponin T Total Protein 6.9 Albumin 3.3 L Albumin/Globulin Ratio 0.9 TSH 08/25/21 08/25/21 08/25/21 03:13 03:13 05:12 WBC RBC Hgb Hct MCV MCH MCHC RDW Plt Count Lymph % (Auto) [place] % (Auto) Eos % (Auto) Baso % (Auto) Lymph # (Auto) [place] # (Auto) Eos # (Auto) Baso # (Auto) Seg Neutrophils % Seg Neutrophils # PT 13.8 INR 0.96 APTT 30.3 Sodium Potassium Chloride Carbon Dioxide Anion Gap BUN Creatinine Estimated GFR BUN/Creatinine Ratio Glucose Lactic Acid Calcium Magnesium Total Bilirubin AST ALT Alkaline Phosphatase Total Creatine Kinase Troponin T < 0.010 Total Protein Albumin Albumin/Globulin Ratio TSH 2.440 08/25/21 08/25/21 05:29 08:04 WBC RBC Hgb Hct MCV MCH MCHC RDW Plt Count Lymph % (Auto) [place] % (Auto) Eos % (Auto) Baso % (Auto) Lymph # (Auto) [place] # (Auto) Eos # (Auto) Baso # (Auto) Seg Neutrophils % Seg Neutrophils # PT INR APTT Sodium 140 Potassium 4.3 Chloride 100.1 Carbon Dioxide 20 L Anion Gap 24 BUN 28 H Creatinine 1.2 Estimated GFR 53 BUN/Creatinine Ratio 23 Glucose 97 Lactic Acid 1.50 Calcium 8.3 L Magnesium Total Bilirubin AST ALT Alkaline Phosphatase Total Creatine Kinase Troponin T Total Protein Albumin Albumin/Globulin Ratio TSH Assessment and Plan 1. CBD stones - US 08/25 revealed cholelithiasis, pneumobilia, multiple solid liver masses - CT 08/25 revealed choledocolithiasis w/ large CBD stone - Surgery has been consulted and was in room during exam, will plan for MRI this AM - Pending MRI results, possible ERCP
--- NOTE | 2021-08-25 10:19 | Consultation ---
History of Present Illness Consult date: 08/25/21 Reason for consult: abdominal pain Chief complaint: Loss of appetite, weight loss, right-sided abdominal pain - History of present illness History of present illness: 76-year-old female with a past medical history of hypertension, diabetes who presented to the emergency room with main complaint of lack of appetite for the last 2 months. The patient states that she is also been experiencing dizziness and lightheadedness for the past 2 to 3 weeks. She states when she started having a lack of appetite she also noted right-sided abdominal pain which starts in the evening and is intermittent. It is not associated with food. It is stabbing at times and does not radiate from the right side of the abdomen. She has never had pain like this before. No alleviating or exacerbating factors. The pain goes away on its own. She also notes significant weight loss which has been unintentional for the past several weeks. The patient states that she saw her primary care physician in June and had an ultrasound ordered. The ultrasound results were sent to her but she has not had follow-up yet. She denies nausea or vomiting, fevers or chills. No melena, hematochezia. Work-up in the emergency room including CT scan and ultrasound was performed. Surgery was consulted to evaluate abnormal results. Past History Past Medical History: diabetes, hypertension Past Surgical History: No surgical history Social history: no significant social history Family history: hypertension Medications and Allergies Allergies Allergy/AdvReac Type Severity Reaction Status Date / Time No Known Allergies Allergy Unverified 08/24/21 22:22 Active Meds: Active Medications Acetaminophen (Acetaminophen 325 Mg Tab) 650 mg PO Q4H PRN PRN Reason: Pain MILD(1-3)/Fever >100.5/[place] Albuterol (Albuterol 2.5 Mg/3 Ml Nebu) 2.5 mg IH Q4HRT PRN PRN Reason: Shortness Of Breath Dextrose (Dextrose 50% In Water (25gm) 50 Ml Syringe) 50 ml IV Q30MIN PRN; Protocol PRN Reason: Hypoglycemia Famotidine (Famotidine 20 Mg/2 Ml Inj) 20 mg IV DAILY PK Last Admin: 08/25/21 09:48 Dose: Not Given Heparin Sodium (Porcine) (Heparin 5,000 Unit/1 Ml Vial) 5,000 unit SUB-Q Q8HR [facility] Dextrose/Sodium Chloride (D5ns) 1,000 mls @ 100 mls/hr IV DIRECT PK Stop: 08/25/21 19:30 Last Admin: 08/25/21 08:30 Dose: 100 mls/hr Insulin Human Regular (Insulin Regular, Human 100 Units/1 Ml) 0 units SUB-Q ACHS PK; Protocol Morphine Sulfate (Morphine 2 Mg/1 Ml Inj) 2 mg IV Q4H PRN PRN Reason: Pain, Moderate (4-6) Naloxone HCl (Naloxone 0.4 Mg/1 Ml Inj) 0.1 mg IV Q2MIN PRN PRN Reason: Res Rate </= 8 or 02 SAT < 92% Ondansetron HCl (Ondansetron 4 Mg/2 Ml Inj) 4 mg IV Q4H PRN PRN Reason: Nausea And Vomiting Sodium Chloride (Sodium Chloride 0.9% 10 Ml Flush Syringe) 10 ml IV BID PK Sodium Chloride (Sodium Chloride 0.9% 10 Ml Flush Syringe) 10 ml IV PRN PRN PRN Reason: LINE FLUSH Review of Systems All systems: negative (10 point ROS performed and negative except for that listed in HPI) Exam Vital Signs Temp Pulse Resp BP Pulse Ox 97.5 F L 123 H 18 137/68 100 08/24/21 16:14 08/24/21 16:14 08/24/21 16:14 08/24/21 16:14 08/24/21 16:14 Narrative exam: Gen.: Awake, alert, oriented x3. No apparent distress. ENT: Trachea midline. No lymphadenopathy. No scleral icterus or conjunctival p allor CV: S1, S2 present Respiratory: No audible wheezes Abdomen: Soft, nondistended, nontender. No rebound, rigidity, guarding Extremities: No clubbing, cyanosis, edema Results - Labs 08/24/21 22:37 08/25/21 08:04 Abnormal lab results 08/24/21 08/24/21 08/25/21 Range/Units 22:37 22:37 08:04 Lymph % (Auto) 13.0 L (13.4-35.0) % [place] % (Auto) 7.8 H (0.0-7.3) % Lymph # (Auto) 1.0 L (1.2-5.4) K/mm3 Seg Neutrophils % 78.8 H (40.0-70.0) % Sodium 136 L (137-145) mmol/L Chloride 93.7 L (98-107) mmol/L Carbon Dioxide 20 L 20 L (22-30) mmol/L BUN 29 H 28 H (7-17) mg/dL Creatinine 1.3 H (0.6-1.2) mg/dL Glucose 148 H (65-100) mg/dL Calcium 8.3 L (8.4-10.2) mg/dL Alkaline Phosphatase 290 H (35-129) units/L Albumin 3.3 L (3.9-5) g/dL Diabetes panel 08/24/21 08/25/21 Range/Units 22:37 08:04 Sodium 136 L 140 (137-145) mmol/L Potassium 4.1 4.3 (3.6-5.0) mmol/L Chloride 93.7 L 100.1 (98-107) mmol/L Carbon Dioxide 20 L 20 L (22-30) mmol/L BUN 29 H 28 H (7-17) mg/dL Creatinine 1.3 H 1.2 (0.6-1.2) mg/dL Glucose 148 H 97 (65-100) mg/dL Calcium 9.7 8.3 L (8.4-10.2) mg/dL AST 34 (5-40) units/L ALT 24 (7-56) units/L Alkaline Phosphatase 290 H (35-129) units/L Total Protein 6.9 (6.3-8.2) g/dL Albumin 3.3 L (3.9-5) g/dL Thyroid panel 08/25/21 Range/Units 03:13 TSH 2.440 (0.270-4.200) mlU/mL Calcium panel 08/24/21 08/25/21 Range/Units 22:37 08:04 Calcium 9.7 8.3 L (8.4-10.2) mg/dL Albumin 3.3 L (3.9-5) g/dL Pituitary panel 08/24/21 08/25/21 08/25/21 Range/Units 22:37 03:13 08:04 Sodium 136 L 140 (137-145) mmol/L Potassium 4.1 4.3 (3.6-5.0) mmol/L Chloride 93.7 L 100.1 (98-107) mmol/L Carbon Dioxide 20 L 20 L (22-30) mmol/L BUN 29 H 28 H (7-17) mg/dL Creatinine 1.3 H 1.2 (0.6-1.2) mg/dL Glucose 148 H 97 (65-100) mg/dL Calcium 9.7 8.3 L (8.4-10.2) mg/dL TSH 2.440 (0.270-4.200) mlU/mL Adrenal panel 08/24/21 08/25/21 Range/Units 22:37 08:04 Sodium 136 L 140 (137-145) mmol/L Potassium 4.1 4.3 (3.6-5.0) mmol/L Chloride 93.7 L 100.1 (98-107) mmol/L Carbon Dioxide 20 L 20 L (22-30) mmol/L BUN 29 H 28 H (7-17) mg/dL Creatinine 1.3 H 1.2 (0.6-1.2) mg/dL Glucose 148 H 97 (65-100) mg/dL Calcium 9.7 8.3 L (8.4-10.2) mg/dL Total Bilirubin 0.40 (0.1-1.2) mg/dL AST 34 (5-40) units/L ALT 24 (7-56) units/L Alkaline Phosphatase 290 H (35-129) units/L Total Protein 6.9 (6.3-8.2) g/dL Albumin 3.3 L (3.9-5) g/dL - Imaging CT scan - abdomen: report reviewed, image reviewed CT scan - pelvis: report reviewed, image reviewed US - abdomen: report reviewed, image reviewed Assessment and Plan 76-year-old female with 1. Solid liver masses - worrisome for malignancy 2. Pneumobilia - ?biliary-enteric fistula vs infectious 3. Choledocholithiasis 4. Abnormal weight loss I reviewed the CT scan abdomen and pelvis and ultrasound images from 08/25/2021 independently along with in-house radiologist. Report from patient's ultrasound in June 2021 report also reviewed and did reveal solid liver masses concerning for malignancy. The pancreas and gallbladder were not well visualized on this study. Radiology report recommended CT scan or MRI for follow-up. Pt stable. Afebrile with normal WBC. Plan: 1. Obtain MRI abd/MRCP to further evaluate liver masses, gallbladder, bile ducts 2. NPO 3. IVF 4. prn pain control 5. GI on board 6. DVT ppx 7. obtain tumor markers 8. trend Bili, LFTs Pt's presentation and imaging worrisome for malignancy, possibly biliary primary with mets to liver. Will obtain additional imaging and follow up on GI recs. Patient currently stable without objective evidence of active infection. No acute surgical intervention at this time. I discussed the results of imaging w ith the patient in detail. Explained differential diagnosis and need for additional w/u. All questions answered. Thank you for this consultation. Please call with any questions or concerns. Evaluation and treatment of this patient was during the time of the national and state emergency arising from COVID19 coronavirus pandemic. Treatment and procedures performed meet the current and available best practice and guidelines for patient during the COVID pandemic.
--- NOTE | 2021-08-25 12:59 | Magnetic Resonance Report ---
MRI ABDOMEN WITHOUT AND WITH CONTRAST INDICATION / CLINICAL INFORMATION: liver masses, choledocolithiasis. TECHNIQUE: Multiplanar, multisequence series were obtained through the abdomen. Thin collimation coronal imaging and radial MRCP images. 15 cc of clariscan was administered intravenously for postcontrast imaging. COMPARISON: Ultrasound abdomen limited and CT abdomen pelvis without contrast performed earlier today FINDINGS: LIVER: At least 8 hypointense liver masses are identified consistent with a neoplastic process. One o f the largest masses measures 4.5 cm in the right hepatic lobe. GALLBLADDER: The gallbladder is not confidently identified. The gallbladder appears to be contracted and the gallbladder fossa. BILE DUCTS: The MRCP images demonstrates a very large filling defect in the mid common bile duct sharona uring up to 2.2 cm in diameter. There is severe diffuse intrahepatic biliary dilatation throughout th e liver. The distal common bile duct is decompressed with smooth tapering. PANCREAS: No significant abnormality. The pancreatic duct is unremarkable on MRCP imaging. SPLEEN: No significant abnormality. ADRENALS: No significant abnormality. RIGHT KIDNEY AND URETER: No significant abnormality. LEFT KIDNEY AND URETER: No significant abnormality. STOMACH AND VISUALIZED BOWEL: No significant abnormality. PERITONEUM: No free fluid. No free air. No fluid collection. LYMPH NODES: No significant adenopathy. AORTA and ARTERIES: No significant abnormality. IVC and VEINS: No significant abnormality. ADDITIONAL FINDINGS: None. SKELETAL SYSTEM: No suspicious bony lesions are detected in the visualized osseous structures. IMPRESSION: There are numerous liver masses consistent with a neoplastic or metastatic process. The primary lesi on is not clearly evident on this exam. The remaining visualized visceral organs are unremarkable. I suspect this could represent gallbladder cancer or cholangiocarcinoma. Very large stone in the mid common bile duct with diffuse intrahepatic biliary dilatation. Signer Name: Dereje Brantley Jr, MD Signed: 08/25/2021 12:55 PM Workstation Name: [id number]
--- NOTE | 2021-08-25 13:32 | Electrocardiograph Report ---
[facility] Test Date: 2021-08-24 Test Time: 22:34:53 Pat Name: SANTY SMITH Department: Room: A364 1 Gender: F Consumer Affairs Director: TWIN : 1945 Requested By: SERG DOTY Order Number: [id number] Reading MD: Hardeep Gary Measurements Intervals [place] Rate: 82 P: 61 MT: 127 QRS: 37 QRSD: 71 T: 60 QT: 346 QTc: 403 Interpretive Statements Sinus rhythm Poor R wave progression Low voltage, extremity and precordial leads No previous ECG available for comparison Electronically Signed On 08-25-2021 13:31:42 EDT by Hardeep Gary
[2021-08-25] MEDS: INSULIN REGULAR, HUMAN 100 UNITS/1 ML SUB-Q SCH ×3 (14:12→22:00)
[2021-08-25] MEDS: HEPARIN 5,000 UNIT/1 ML VIAL SUB-Q SCH ×2 (14:27→21:32)
--- NOTE | 2021-08-25 14:42 | Event Note ---
Date: 08/25/21 MRI abdomen reviewed with Dr. Brantley. multiple liver lesions concerning for carcinoma, possibly metastatic disease. Stone seen in common bile duct with intrahepatic biliary dilitation. Discussed CT guided liver mass biopsy with Dr. Brantley. Orders placed. Due to staffing issues in radiology, CT biopsy cannot be performed today and will be scheduled for Saturday. Discussed MRI results with Dr Pope GI. AST, ALT, BILI not elevated. No plans for ERCP today. Will start patient on a diet.
--- NOTE | 2021-08-25 16:28 | Hem/Onc Consultation ---
History of Present Illness - Reason for Consult Consult date: 08/25/21 - History of Present Illness Heme Data Review Patient was not seen This is a 76yo female who presented to [facility] ED with complaints of dizziness, unsteady gait for over a week, and right-sided abdominal pain for about 1 month. Past medical history of HTN and DM. Patient also reports dizziness/lightheadedness and unsteady gait that started about a week ago, poor appetite and over 25lbs of unintentional weight loss in the past couple of months. She denied any nausea or vomiting, no melena, no hematochezia, no fevers, nor night sweats, nor chills. MRI abdomen: multiple liver lesions concerning for carcinoma, possibly metastatic disease. Stone seen in common bile duct with intrahepatic biliary dilitation. Oncology consulted for evaluation of liver masses, concerning for malignancy. DATA REVIEWED BELOW IMP: Liver lesions, concerning for carcinoma PLAN: Labs to include AFP, ca19-9, cea, iron studies CT guided liver biopsy Formal consult to follow Laboratory Last Values WBC 7.4 K/mm3 (4.5-11.0) 08/24/21 22:37 Hgb 11.3 gm/dl (10.1-14.3) 08/24/21 22:37 Hct 34.7 % (30.3-42.9) 08/24/21 22:37 MCV 92 fl (79-97) 08/24/21 22:37 Plt Count 423 K/mm3 (140-440) 08/24/21 22:37 Lymph % (Auto) 13.0 % (13.4-35.0) L 08/24/21 22:37 Lymph # (Auto) 1.0 K/mm3 (1.2-5.4) L 08/24/21 22:37 PT 13.8 Sec. (12.2-14.9) 08/25/21 05:12 INR 0.96 (0.87-1.13) 08/25/21 05:12 APTT 30.3 Sec. (24.2-36.6) 08/25/21 05:12 Creatinine 1.2 mg/dL (0.6-1.2) 08/25/21 08:04 Total Bilirubin 0.40 mg/dL (0.1-1.2) 08/24/21 22:37 AST 34 units/L (5-40) 08/24/21 22:37 ALT 24 units/L (7-56) 08/24/21 22:37 Alkaline Phosphatase 290 units/L (35-129) H 08/24/21 22:37 Past History Past Medical History: diabetes, hypertension Past Surgical History: No surgical history Social history: alcohol abuse (Quit over 20 years ago) Family history: hypertension Medications and Allergies Allergies Allergy/AdvReac Type Severity Reaction Status Date / Time No Known Allergies Allergy Unverified 08/24/21 22:22 Home Medications Medication Instructions Recorded Confirmed Last Taken Type Amlodipine Besylate/Benazepril 1 each PO 08/25/21 1 Day Ago History [Amlodipine-Benazepril 5-40 mg] ~08/24/21 Active Meds: Active Medications Acetaminophen (Acetaminophen 325 Mg Tab) 650 mg PO Q4H PRN PRN Reason: Pain MILD(1-3)/Fever >100.5/[place] Albuterol (Albuterol 2.5 Mg/3 Ml Nebu) 2.5 mg IH Q4HRT PRN PRN Reason: Shortness Of Breath Dextrose (Dextrose 50% In Water (25gm) 50 Ml Syringe) 50 ml IV Q30MIN PRN; Protocol PRN Reason: Hypoglycemia Famotidine (Famotidine 20 Mg/2 Ml Inj) 20 mg IV DAILY [facility] Last Admin: 08/25/21 09:48 Dose: Not Given Heparin Sodium (Porcine) (Heparin 5,000 Unit/1 Ml Vial) 5,000 unit SUB-Q Q8HR [facility] Last Admin: 08/25/21 14:27 Dose: 5,000 unit Dextrose/Sodium Chloride (D5ns) 1,000 mls @ 100 mls/hr IV DIRECT PK Stop: 08/25/21 19:30 Last Admin: 08/25/21 08:30 Dose: 100 mls/hr Insulin Human Regular (Insulin Regular, Human 100 Units/1 Ml) 0 units SUB-Q ACHS [facility]; Protocol Last Admin: 08/25/21 14:12 Dose: Not Given Morphine Sulfate (Morphine 2 Mg/1 Ml Inj) 2 mg IV Q4H PRN PRN Reason: Pain, Moderate (4-6) Naloxone HCl (Naloxone 0.4 Mg/1 Ml Inj) 0.1 mg IV Q2MIN PRN PRN Reason: Res Rate </= 8 or 02 SAT < 92% Ondansetron HCl (Ondansetron 4 Mg/2 Ml Inj) 4 mg IV Q4H PRN PRN Reason: Nausea And Vomiting Sodium Chloride (Sodium Chloride 0.9% 10 Ml Flush Syringe) 10 ml IV BID PK Last Admin: 08/25/21 10:52 Dose: 10 ml Sodium Chloride (Sodium Chloride 0.9% 10 Ml Flush Syringe) 10 ml IV PRN PRN PRN Reason: LINE FLUSH Exam - Constitutional Vitals: Last Vital Signs Temp 98.7 F 08/25/21 10:47 Pulse 99 H 08/25/21 10:45 Resp 18 08/25/21 10:47 BP 132/71 08/25/21 10:47 Pulse Ox 99 08/25/21 10:45 Results - Labs lab Results: Laboratory Results - last 24 hr 08/24/21 08/24/21 08/25/21 22:37 22:37 03:13 WBC 7.4 RBC 3.79 Hgb 11.3 Hct 34.7 MCV 92 MCH 30 MCHC 33 RDW 14.6 Plt Count 423 Lymph % (Auto) 13.0 L [place] % (Auto) 7.8 H Eos % (Auto) 0.0 Baso % (Auto) 0.4 Lymph # (Auto) 1.0 L [place] # (Auto) 0.6 Eos # (Auto) 0.0 Baso # (Auto) 0.0 Seg Neutrophils % 78.8 H Seg Neutrophils # 5.8 PT INR APTT Sodium 136 L Potassium 4.1 Chloride 93.7 L Carbon Dioxide 20 L Anion Gap 26 BUN 29 H Creatinine 1.3 H Estimated GFR 40 BUN/Creatinine Ratio 22 Glucose 148 H POC Glucose Lactic Acid Calcium 9.7 Magnesium 1.80 Total Bilirubin 0.40 AST 34 ALT 24 Alkaline Phosphatase 290 H Total Creatine Kinase 51 Troponin T Total Protein 6.9 Albumin 3.3 L Albumin/Globulin Ratio 0.9 TSH 08/25/21 08/25/21 08/25/21 03:13 03:13 05:12 WBC RBC Hgb Hct MCV MCH MCHC RDW Plt Count Lymph % (Auto) [place] % (Auto) Eos % (Auto) Baso % (Auto) Lymph # (Auto) [place] # (Auto) Eos # (Auto) Baso # (Auto) Seg Neutrophils % Seg Neutrophils # PT 13.8 INR 0.96 APTT 30.3 Sodium Potassium Chloride Carbon Dioxide Anion Gap BUN Creatinine Estimated GFR BUN/Creatinine Ratio Glucose POC Glucose Lactic Acid Calcium Magnesium Total Bilirubin AST ALT Alkaline Phosphatase Total Creatine Kinase Troponin T < 0.010 Total Protein Albumin Albumin/Globulin Ratio TSH 2.440 08/25/21 08/25/21 08/25/21 05:29 08:04 10:49 WBC RBC Hgb Hct MCV MCH MCHC RDW Plt Count Lymph % (Auto) [place] % (Auto) Eos % (Auto) Baso % (Auto) Lymph # (Auto) [place] # (Auto) Eos # (Auto) Baso # (Auto) Seg Neutrophils % Seg Neutrophils # PT INR APTT Sodium 140 Potassium 4.3 Chloride 100.1 Carbon Dioxide 20 L Anion Gap 24 BUN 28 H Creatinine 1.2 Estimated GFR 53 BUN/Creatinine Ratio 23 Glucose 97 POC Glucose 110 H Lactic Acid 1.50 Calcium 8.3 L Magnesium Total Bilirubin AST ALT Alkaline Phosphatase Total Creatine Kinase Troponin T Total Protein Albumin Albumin/Globulin Ratio TSH 08/25/21 16:05 WBC RBC Hgb Hct MCV MCH MCHC RDW Plt Count Lymph % (Auto) [place] % (Auto) Eos % (Auto) Baso % (Auto) Lymph # (Auto) [place] # (Auto) Eos # (Auto) Baso # (Auto) Seg Neutrophils % Seg Neutrophils # PT INR APTT Sodium Potassium Chloride Carbon Dioxide Anion Gap BUN Creatinine Estimated GFR BUN/Creatinine Ratio Glucose POC Glucose 93 Lactic Acid Calcium Magnesium Total Bilirubin AST ALT Alkaline Phosphatase Total Creatine Kinase Troponin T Total Protein Albumin Albumin/Globulin Ratio TSH
[2021-08-26] MEDS: HEPARIN 5,000 UNIT/1 ML VIAL SUB-Q SCH ×3 (05:06→21:29)
[2021-08-26 05:33] LABS: Bacteria,Urine 1+ /HPF (Negative); Bilirubin,Urine NEG (Negative); Blood,Urine MOD (Negative); Calcium Oxalate Crystals,Urine FEW; Color,Urine Yellow (Yellow); Mucus,Urine 2+ /HPF; Protein,Urine <15 mg/dL mg/dL (Negative); Urobilinogen,Urine < 2.0 mg/dL (<2.0)
--- NOTE | 2021-08-26 07:23 | Progress Note ---
Assessment and Plan Assessment and plan: This is a 76-year-old female with known past medical history of HTN and DM presented to the emergency room complaining of dizziness, unsteady gait for over a week, and right-sided abdominal pain for about 1 month. Patient reported that he symptoms started about a month ago when she started to experience intermittent sharp right abdominal pain on her right side. She stated that she noticed that the pain usually occurs in the evening and at night. She reported that the pain as an intermittent stabbing pain that is mainly localized on her right side. No alleviating nor exacerbating factors reported, and the pain is not associated with foods. Patient also reported dizziness/lightheadedness and unsteady gait that started about a week ago, poor appetite and over 25lbs of unintentional weight loss in the past couple of months. She denied any nausea or vomiting, no melena, no hematochezia, no fevers, nor night sweats, nor chills. Patient denied any direct contact with anyone who is sick or with known exposure to COVID 19. Per patient she received Both COVID vaccines and a recent booster. Patient was seen and examined in the ED. Patient is hemodynamically stable on RA. Denied any pain nor any discomfort at this time. No signs of any acute distress noted. Laboratory studies and imagings reviewed. CXR 1. No acute findings. CT head/Brain 1. No acute intracranial abnormality. 2. Mild microangiopathy CTA/P 1. Choledocholithiasis with large distal common bile duct stone and moderate pneumobilia 2. 2 ill-defined hypodense lesions posterior hepatic segment and anterior hepatic dome likely represent hepatic abscesses. Hepatic metastases are considered less likely Ultrasound Abdomen 1. Cholelithiasis . Gallbladder poorly visualized sonographically. Contrast- enhanced CT would be useful for further characterization. 2. Pneumobilia 3. Multiple solid liver masses General Surgery and GI already consulted in the ED. Patient is being admitted to the Med-Surg floor for further evaluation. 08/26: Patient seen and examined, awaiting CT guided biopsy planned for saturday. GI following and will also evaluate timing of ERCP due to the noted "Very large stone in the mid common bile duct". Patient tolerating PO, She verbalized understanding. ABD MRI: IMPRESSION: There are numerous liver masses consistent with a neoplastic or metastatic process. The primary lesion is not clearly evident on this exam. The remaining visualized visceral organs are unremarkable. I suspect this could represent gallbladder cancer or cholangiocarcinoma. Very large stone in the mid common bile duct with diffuse intrahepatic biliary dilatation. #Choledocholithiasis with Stone #Multiple Solid Liver Masses- c/f malignancy - Noted on CT abd/pelvis- Choledocholithiasis with large distal common bile duct stone. - GI consulted - Keep patient NPO for now - MRI of the abdomen pending - Continuous IVF - PRN analgesia for pain control - General Surgery also consulted - Depends on MRI findings, might need ONC consult for further w/up #Acute Cystits #Moderate Pneumobilia #Possible Hepatic Abscesses - Noted on CT abd/pelvis - Patient is afebrile, hemodynamically stable, with no leukocytosis - Received X1 dose of IV Zosyn in the ED - Cultures pending - Hold off IV Abx for now - F/u on culture data - Continuous IVF - General Surgery consulted #Intermittent Abdominal Pain - Pain is sharp and localized on the right site, no associated with foods, no alleviating nor exacerbating factors - most likely due to above - No pain at time of assessment - Denied any N/V - PRN analgesia for pain #Hyponatremia #Dehydration - S/p IV resuscitation in the ED - NA improved post IV hydration - Continue IVF hydration - Strict intake and output #Hypertension - BP stable - Resume home meds once list is available - Continue blood pressure monitor per protocol - Maintain SBP less than 160 #Diabetes Mellitus - Per patient, Januvia discontinue by PCP since weight loss - Low dose SSI ACHS - Avoid Hypoglycemia #Abnormal weight Loss - Probably due to poor appetite vs malignancy - Keep NPO for now, continue cont. IVF - R/o malignancy as discussed above #GI/DVT Prophylaxis - PPI- Pepcid - Heparin SubQ - SCDs to bilateral lower extremities while in bed #Advance Care Planning - Thoroughly discussed disease process, care plan, diagnoses, and prognosis with patient at the bedside. Patient is full code. Patient aknowledged understanding and agreement with current care plan. All questions and concerns were addressed at this time. - Patient reported that her next living relative in the [place] is her sister, Graciela Cortes. She voiced that in case she becomes incapacitated and unable to make her own decision, her sister knows her wishes. History Interval history: Patient seen and examined resting comfortable. Hospitalist Physical - Physical exam Narrative exam: General appearance: Present: no acute distress, cachectic - EENT Eyes: Present: PERRL, EOM intact ENT: hearing intact - Neck Neck: Present: supple, normal ROM - Respiratory Respiratory effort: normal Respiratory: bilateral: diminished - Cardiovascular Rhythm: regular Heart Sounds: Present: S1 & S2 - Extremities Extremities: no ischemia, pulses intact, pulses symmetrical Peripheral Pulses: within normal limits - Abdominal General gastrointestinal: Present: soft, non-distended, normal bowel sounds Female genitourinary: Present: deferred - Rectal Rectal Exam: deferred - Integumentary Integumentary: Present: clear, warm, dry - Musculoskeletal Musculoskeletal: generalized weakness - Psychiatric Psychiatric: appropriate mood/affect, cooperative - Neurologic Neurologic: CNII-XII intact, moves all extremities - Allied Health Allied health notes reviewed: nursing - Constitutional Vitals: Temp Pulse Resp BP Pulse Ox 98.7 F 100 H 16 111/52 100 08/26/21 03:21 08/26/21 03:21 08/26/21 03:21 08/26/21 03:21 08/26/21 03:21 General appearance: Present: no acute distress, cachectic HEART Score - HEART Score Troponin: Troponin T < 0.010 ng/mL (0.00-0.029) 08/25/21 03:13 Results - Labs CBC & Chem 7: 08/26/21 06:38 08/26/21 06:38 Labs: Laboratory Last Values WBC 7.4 K/mm3 (4.5-11.0) 08/24/21 22:37 RBC 3.79 M/mm3 (3.65-5.03) 08/24/21 22:37 Hgb 11.3 gm/dl (10.1-14.3) 08/24/21 22:37 Hct 34.7 % (30.3-42.9) 08/24/21 22:37 MCV 92 fl (79-97) 08/24/21 22:37 MCH 30 pg (28-32) 08/24/21 22:37 MCHC 33 % (30-34) 08/24/21 22:37 RDW 14.6 % (13.2-15.2) 08/24/21 22:37 Plt Count 423 K/mm3 (140-440) 08/24/21 22:37 Lymph % (Auto) 13.0 % (13.4-35.0) L 08/24/21 22:37 [place] % (Auto) 7.8 % (0.0-7.3) H 08/24/21 22:37 Eos % (Auto) 0.0 % (0.0-4.3) 08/24/21 22:37 Baso % (Auto) 0.4 % (0.0-1.8) 08/24/21 22:37 Lymph # (Auto) 1.0 K/mm3 (1.2-5.4) L 08/24/21 22:37 [place] # (Auto) 0.6 K/mm3 (0.0-0.8) 08/24/21 22:37 Eos # (Auto) 0.0 K/mm3 (0.0-0.4) 08/24/21 22:37 Baso # (Auto) 0.0 K/mm3 (0.0-0.1) 08/24/21 22:37 Seg Neutrophils % 78.8 % (40.0-70.0) H 08/24/21 22:37 Seg Neutrophils # 5.8 K/mm3 (1.8-7.7) 08/24/21 22:37 PT 13.8 Sec. (12.2-14.9) 08/25/21 05:12 INR 0.96 (0.87-1.13) 08/25/21 05:12 APTT 30.3 Sec. (24.2-36.6) 08/25/21 05:12 Sodium 140 mmol/L (137-145) 08/25/21 08:04 Potassium 4.3 mmol/L (3.6-5.0) 08/25/21 08:04 Chloride 100.1 mmol/L (98-107) 08/25/21 08:04 Carbon Dioxide 20 mmol/L (22-30) L 08/25/21 08:04 Anion Gap 24 mmol/L 08/25/21 08:04 BUN 28 mg/dL (7-17) H 08/25/21 08:04 Creatinine 1.2 mg/dL (0.6-1.2) 08/25/21 08:04 Estimated GFR 53 ml/min 08/25/21 08:04 BUN/Creatinine Ratio 23 % 08/25/21 08:04 Glucose 97 mg/dL (65-100) 08/25/21 08:04 POC Glucose 88 mg/dL (70-105) 08/25/21 22:09 Lactic Acid 1.50 mmol/L (0.7-2.0) 08/25/21 05:29 Calcium 8.3 mg/dL (8.4-10.2) L 08/25/21 08:04 Magnesium 1.80 mg/dL (1.7-2.3) 08/25/21 03:13 Total Bilirubin 0.40 mg/dL (0.1-1.2) 08/24/21 22:37 AST 34 units/L (5-40) 08/24/21 22:37 ALT 24 units/L (7-56) 08/24/21 22:37 Alkaline Phosphatase 290 units/L (35-129) H 08/24/21 22:37 Total Creatine Kinase 51 units/L (30-135) 08/25/21 03:13 Troponin T < 0.010 ng/mL (0.00-0.029) 08/25/21 03:13 Total Protein 6.9 g/dL (6.3-8.2) 08/24/21 22:37 Albumin 3.3 g/dL (3.9-5) L 08/24/21 22:37 Albumin/Globulin Ratio 0.9 % 08/24/21 22:37 TSH 2.440 mlU/mL (0.270-4.200) 08/25/21 03:13 Urine Color Yellow (Yellow) 08/26/21 05:09 Urine Turbidity Clear (Clear) 08/26/21 05:09 Urine pH 5.0 (5.0-7.0) 08/26/21 05:09 Ur Specific [place] 1.020 (1.003-1.030) 08/26/21 05:09 Urine Protein <15 mg/dl mg/dL (Negative) 08/26/21 05:09 Urine Glucose (UA) >=500 mg/dL (Negative) 08/26/21 05:09 Urine Ketones 20 mg/dL (Negative) 08/26/21 05:09 Urine Blood Mod (Negative) 08/26/21 05:09 Urine Nitrite Neg (Negative) 08/26/21 05:09 Urine Bilirubin Neg (Negative) 08/26/21 05:09 Urine Urobilinogen < 2.0 mg/dL (<2.0) 08/26/21 05:09 Ur Leukocyte Esterase Mod (Negative) 08/26/21 05:09 Urine WBC (Auto) 33.0 /HPF (0.0-6.0) H 08/26/21 05:09 Urine RBC (Auto) 6.0 /HPF (0.0-6.0) 08/26/21 05:09 U Epithel Cells (Auto) 3.0 /HPF (0-13.0) 08/26/21 05:09 Urine Bacteria (Auto) 1+ /HPF (Negative) 08/26/21 05:09 Calcium Oxalate Crystal Few 08/26/21 05:09 Urine Mucus 2+ /HPF 08/26/21 05:09 Microbiology: Microbiology 08/25/21 06:02 Peripheral/Venous Blood Culture - Preliminary Culture in Progress 08/25/21 05:29 Peripheral/Venous Blood Culture - Preliminary Culture in Progress Pham/IV: Voiding Method Toilet Active Medications - Current Medications Current Medications: Generic Name Dose Route Start Last Admin Trade Name Freq PRN Reason Stop Dose Admin Acetaminophen 650 mg 08/25/21 07:13 Acetaminophen 325 Mg Tab PO Q4H PRN Pain MILD(1-3)/Fever >100.5/[place] Albuterol 2.5 mg 08/25/21 07:13 Albuterol 2.5 Mg/3 Ml Nebu IH Q4HRT PRN Shortness Of Breath Dextrose 50 ml 08/25/21 08:23 Dextrose 50% In Water (25gm) 50 Ml Syringe IV Q30MIN PRN Hypoglycemia Protocol Famotidine 20 mg 08/25/21 10:00 08/25/21 09:48 Famotidine 20 Mg/2 Ml Inj IV Not Given DAILY PK Heparin Sodium (Porcine) 5,000 unit 08/25/21 14:00 08/26/21 05:06 Heparin 5,000 Unit/1 Ml Vial SUB-Q 5,000 unit Q8HR PK Administration Insulin Human Regular 0 units 08/25/21 11:30 08/25/21 22:00 Insulin Regular, Human 100 Units/1 Ml SUB-Q Not Given ACHS PK Protocol Morphine Sulfate 2 mg 08/25/21 07:13 Morphine 2 Mg/1 Ml Inj IV Q4H PRN Pain, Moderate (4-6) Naloxone HCl 0.1 mg 08/25/21 07:13 Naloxone 0.4 Mg/1 Ml Inj IV Q2MIN PRN Res Rate </= 8 or 02 SAT < 92% Ondansetron HCl 4 mg 08/25/21 07:13 Ondansetron 4 Mg/2 Ml Inj IV Q4H PRN Nausea And Vomiting Sodium Chloride 10 ml 08/25/21 10:00 08/25/21 21:32 Sodium Chloride 0.9% 10 Ml Flush Syringe IV 10 ml BID PK Administration Sodium Chloride 10 ml 08/25/21 07:13 Sodium Chloride 0.9% 10 Ml Flush Syringe IV PRN PRN LINE FLUSH Nutrition/Malnutrition Assess - Dietary Evaluation Nutrition/Malnutrition Findings: Nutrition Notes Start: 08/25/21 12:28 Freq: Status: Active Protocol: Document 08/25/21 12:28 STEF (Rec: 08/25/21 12:44 STEF [id number]) Nutrition Notes Need for Assessment generated from: MD Order,Education Initial or Follow up Brief Note Current Diagnosis Diabetes,Hypertension Other Pertinent Diagnosis Choledocolithiasis, Solid Liver Mass, Abdominal Pain, Abnormal Weight Loss. Current Diet NPO (since 08/25 04:31). Height 5 ft 4 in Weight 50.802 kg [place] Body Weight (kg) 54.54 BMI 19.2 Weight change and time frame None provided at admission. Weight Status Appropriate Subjective/Other Information RD consult for nutrition education assessment. Pt currently on NPO. Pt is on Room Air, O2 saturation @ 100%, according to O2 Delivery Assessment notes. Bedside swallowing assessment passed, according to Swallow Screen notes. Pt states having loss more that 25 lb during the last couple of months and experiencing poor appetite, according to History & Physical notes. PO intake held due to pending MRIand other studies, according to Progress notes. Pt still in critical condition , not a candidate for Nutrition Education at the time, will assess feasibility on F/U. Percent of energy/protein needs met: Pt currently on NPO. Nutrition Intervention Follow-Up By: 08/28/21 Additional Comments Nutrition education will be provided at F/U, if feasible. When pertinent, start monitoring food tolerance, %PO intake of meals, and BM.
[2021-08-26 07:28] LABS: Basophils % (Auto) 0.6 % (0.0-1.8); Eosinophils % (Auto) 0.4 % (0.0-4.3); Hematocrit 28.1 % (30.3-42.9); Hemoglobin 9.1 gm/dl (10.1-14.3); Lymphocytes # (Auto) 0.8 K/mm3 (1.2-5.4); Lymphocytes % (Auto) 10.7 % (13.4-35.0); Mean Corpuscular HGB Conc 33 % (30-34); Mean Corpuscular Volume 90 fl (79-97); Monocytes # (Auto) 0.8 K/mm3 (0.0-0.8); Monocytes % (Auto) 10.4 % (0.0-7.3); Platelet Count 353 K/mm3 (140-440)
[2021-08-26 07:48] LABS: Alanine Aminotransferase 47 units/L (7-56); Albumin 2.7 g/dL (3.9-5); BUN/Creatinine Ratio 24; Blood Urea Nitrogen 19 mg/dL (7-17); Calcium 8.3 mg/dL (8.4-10.2); Hemolysis Index 2; Iron 32 ug/dL (37-170); Total Iron Binding Capacity 135 mcg/dL (250-450)
[2021-08-26] MEDS: FAMOTIDINE 20 MG/2 ML INJ IV SCH (11:03)
[2021-08-26] MEDS: INSULIN REGULAR, HUMAN 100 UNITS/1 ML SUB-Q SCH ×3 (11:17→16:38)
--- NOTE | 2021-08-26 15:04 | Gastroenterology Progress Note ---
Assessment and Plan 1. Liver masses - concerning for malignancy, unclear primary, tumor markers pending. CT guided biopsy pending per IR (Saturday) 2. CBD stone/biliary dilatation - no signs of cholangitis at present time. monitor liver enzymes, reports gas pains with solid intake, so recommend clears for now Subjective Date of service: 08/26/21 Principal diagnosis: abd pain, liver lesions Interval history: pt feeling okay, complains of "gas" pains with po intake. no vomiting or fevers/chills Objective - Constitutional Vitals: Temp Pulse Resp BP Pulse Ox 97.8 F 81 18 111/65 100 08/26/21 11:19 08/26/21 11:19 08/26/21 11:19 08/26/21 11:19 08/26/21 11:19 General appearance: no acute distress - Respiratory Respiratory effort: normal Respiratory: bilateral: CTA - Cardiovascular Rhythm: regular - Gastrointestinal General gastrointestinal: Present: soft, tender (right sided) - Neurologic Neurological: alert and oriented x3 - Labs CBC & Chem 7: 08/26/21 06:38 08/26/21 06:38 Labs: Laboratory Results - last 24 hr 08/25/21 08/25/21 08/26/21 16:05 22:09 05:09 WBC RBC Hgb Hct MCV MCH MCHC RDW Plt Count Lymph % (Auto) [place] % (Auto) Eos % (Auto) Baso % (Auto) Lymph # (Auto) [place] # (Auto) Eos # (Auto) Baso # (Auto) Seg Neutrophils % Seg Neutrophils # Sodium Potassium Chloride Carbon Dioxide Anion Gap BUN Creatinine Estimated GFR BUN/Creatinine Ratio Glucose POC Glucose 93 88 Calcium Iron TIBC Total Bilirubin AST ALT Alkaline Phosphatase Total Protein Albumin Albumin/Globulin Ratio Urine Color Yellow Urine Turbidity Clear Urine pH 5.0 Ur Specific [place] 1.020 Urine Protein <15 mg/dl Urine Glucose (UA) >=500 Urine Ketones 20 Urine Blood Mod Urine Nitrite Neg Urine Bilirubin Neg Urine Urobilinogen < 2.0 Ur Leukocyte Esterase Mod Urine WBC (Auto) 33.0 H Urine RBC (Auto) 6.0 U Epithel Cells (Auto) 3.0 Urine Bacteria (Auto) 1+ Calcium Oxalate Crystal Few Urine Mucus 2+ 08/26/21 08/26/21 08/26/21 06:38 06:38 07:45 WBC 7.7 RBC 3.10 L Hgb 9.1 L Hct 28.1 L D MCV 90 MCH 29 MCHC 33 RDW 15.0 Plt Count 353 Lymph % (Auto) 10.7 L [place] % (Auto) 10.4 H Eos % (Auto) 0.4 Baso % (Auto) 0.6 Lymph # (Auto) 0.8 L [place] # (Auto) 0.8 Eos # (Auto) 0.0 Baso # (Auto) 0.0 Seg Neutrophils % 77.9 H Seg Neutrophils # 6.0 Sodium 140 Potassium 3.5 L Chloride 105.9 Carbon Dioxide 23 Anion Gap 15 BUN 19 H Creatinine 0.8 Estimated GFR > 60 BUN/Creatinine Ratio 24 Glucose 163 H POC Glucose 163 H Calcium 8.3 L Iron 32 L TIBC 135 L Total Bilirubin 0.30 AST 109 H ALT 47 Alkaline Phosphatase 352 H Total Protein 5.7 L Albumin 2.7 L Albumin/Globulin Ratio 0.9 Urine Color Urine Turbidity Urine pH Ur Specific [place] Urine Protein Urine Glucose (UA) Urine Ketones Urine Blood Urine Nitrite Urine Bilirubin Urine Urobilinogen Ur Leukocyte Esterase Urine WBC (Auto) Urine RBC (Auto) U Epithel Cells (Auto) Urine Bacteria (Auto) Calcium Oxalate Crystal Urine Mucus 08/26/21 11:19 WBC RBC Hgb Hct MCV MCH MCHC RDW Plt Count Lymph % (Auto) [place] % (Auto) Eos % (Auto) Baso % (Auto) Lymph # (Auto) [place] # (Auto) Eos # (Auto) Baso # (Auto) Seg Neutrophils % Seg Neutrophils # Sodium Potassium Chloride Carbon Dioxide Anion Gap BUN Creatinine Estimated GFR BUN/Creatinine Ratio Glucose POC Glucose 123 H Calcium Iron TIBC Total Bilirubin AST ALT Alkaline Phosphatase Total Protein Albumin Albumin/Globulin Ratio Urine Color Urine Turbidity Urine pH Ur Specific [place] Urine Protein Urine Glucose (UA) Urine Ketones Urine Blood Urine Nitrite Urine Bilirubin Urine Urobilinogen Ur Leukocyte Esterase Urine WBC (Auto) Urine RBC (Auto) U Epithel Cells (Auto) Urine Bacteria (Auto) Calcium Oxalate Crystal Urine Mucus
[2021-08-26] MEDS: MORPHINE 2 MG/1 ML INJ IV PRN (19:01)
[2021-08-27] MEDS: INSULIN REGULAR, HUMAN 100 UNITS/1 ML SUB-Q SCH ×5 (00:27→22:00)
[2021-08-27] MEDS: HEPARIN 5,000 UNIT/1 ML VIAL SUB-Q SCH ×3 (06:03→21:59)
--- NOTE | 2021-08-27 07:39 | Progress Note ---
Assessment and Plan Assessment and plan: This is a 76-year-old female with known past medical history of HTN and DM presented to the emergency room complaining of dizziness, unsteady gait for over a week, and right-sided abdominal pain for about 1 month. Patient reported that he symptoms started about a month ago when she started to experience intermittent sharp right abdominal pain on her right side. She stated that she noticed that the pain usually occurs in the evening and at night. She reported that the pain as an intermittent stabbing pain that is mainly localized on her right side. No alleviating nor exacerbating factors reported, and the pain is not associated with foods. Patient also reported dizziness/lightheadedness and unsteady gait that started about a week ago, poor appetite and over 25lbs of unintentional weight loss in the past couple of months. She denied any nausea or vomiting, no melena, no hematochezia, no fevers, nor night sweats, nor chills. Patient denied any direct contact with anyone who is sick or with known exposure to COVID 19. Per patient she received Both COVID vaccines and a recent booster. Patient was seen and examined in the ED. Patient is hemodynamically stable on RA. Denied any pain nor any discomfort at this time. No signs of any acute distress noted. Laboratory studies and imagings reviewed. CXR 1. No acute findings. CT head/Brain 1. No acute intracranial abnormality. 2. Mild microangiopathy CTA/P 1. Choledocholithiasis with large distal common bile duct stone and moderate pneumobilia 2. 2 ill-defined hypodense lesions posterior hepatic segment and anterior hepatic dome likely represent hepatic abscesses. Hepatic metastases are considered less likely Ultrasound Abdomen 1. Cholelithiasis . Gallbladder poorly visualized sonographically. Contrast- enhanced CT would be useful for further characterization. 2. Pneumobilia 3. Multiple solid liver masses General Surgery and GI already consulted in the ED. Patient is being admitted to the Med-Surg floor for further evaluation. 08/26: Patient seen and examined, awaiting CT guided biopsy planned for saturday. GI following and will also evaluate timing of ERCP due to the noted "Very large stone in the mid common bile duct". Patient tolerating PO, She verbalized understanding. ABD MRI: IMPRESSION: There are numerous liver masses consistent with a neoplastic or metastatic process. The primary lesion is not clearly evident on this exam. The remaining visualized visceral organs are unremarkable. I suspect this could represent gallbladder cancer or cholangiocarcinoma. Very large stone in the mid common bile duct with diffuse intrahepatic biliary dilatation. 08/27: Patient remains clinically stable improving some. She is planned for CT- guided biopsy of liver mass highly suspicious for malignancy of unknown primary at this time. I discussed with GI no urgency for an ERCP in regards to her common bile duct stone. No evidence of cholangitis at this time #Choledocholithiasis with Stone #Multiple Solid Liver Masses- c/f malignancy - Noted on CT abd/pelvis- Choledocholithiasis with large distal common bile duct stone. - GI consulted - Keep patient NPO for now - MRI of the abdomen pending - Continuous IVF - PRN analgesia for pain control - General Surgery also consulted - Depends on MRI findings, might need ONC consult for further w/up #Acute Cystits #Moderate Pneumobilia #Possible Hepatic Abscesses - Noted on CT abd/pelvis - Patient is afebrile, hemodynamically stable, with no leukocytosis - Received X1 dose of IV Zosyn in the ED - Cultures pending - Hold off IV Abx for now - F/u on culture data - Continuous IVF - General Surgery consulted #Intermittent Abdominal Pain - Pain is sharp and localized on the right site, no associated with foods, no alleviating nor exacerbating factors - most likely due to above - No pain at time of assessment - Denied any N/V - PRN analgesia for pain #Hyponatremia #Dehydration - S/p IV resuscitation in the ED - NA improved post IV hydration - Continue IVF hydration - Strict intake and output #Hypertension - BP stable - Resume home meds once list is available - Continue blood pressure monitor per protocol - Maintain SBP less than 160 #Diabetes Mellitus - Per patient, Januvia discontinue by PCP since weight loss - Low dose SSI ACHS - Avoid Hypoglycemia #Abnormal weight Loss - Probably due to poor appetite vs malignancy - Keep NPO for now, continue cont. IVF - R/o malignancy as discussed above #GI/DVT Prophylaxis - PPI- Pepcid - Heparin SubQ - SCDs to bilateral lower extremities while in bed #Advance Care Planning - Thoroughly discussed disease process, care plan, diagnoses, and prognosis with patient at the bedside. Patient is full code. Patient aknowledged understanding and agreement with current care plan. All questions and concerns were addressed at this time. - Patient reported that her next living relative in the [place] is her sister, Graciela Cortes. She voiced that in case she becomes incapacitated and unable to make her own decision, her sister knows her wishes. History Interval history: Patient seen and examined resting comfortable. Still with intermittent abdominal pain but much improved Hospitalist Physical - Physical exam Narrative exam: General appearance: Present: no acute distress, cachectic - EENT Eyes: Present: PERRL, EOM intact ENT: hearing intact - Neck Neck: Present: supple, normal ROM - Respiratory Respiratory effort: normal Respiratory: bilateral: diminished - Cardiovascular Rhythm: regular Heart Sounds: Present: S1 & S2 - Extremities Extremities: no ischemia, pulses intact, pulses symmetrical Peripheral Pulses: within normal limits - Abdominal General gastrointestinal: Present: soft, non-distended, normal bowel sounds Female genitourinary: Present: deferred - Rectal Rectal Exam: deferred - Integumentary Integumentary: Present: clear, warm, dry - Musculoskeletal Musculoskeletal: generalized weakness - Psychiatric Psychiatric: appropriate mood/affect, cooperative - Neurologic Neurologic: CNII-XII intact, moves all extremities - Allied Health Allied health notes reviewed: nursing - Constitutional Vitals: Temp Pulse Resp BP Pulse Ox 98.1 F 84 16 120/67 100 08/26/21 23:34 08/27/21 04:25 08/27/21 04:25 08/27/21 04:25 08/27/21 04:25 General appearance: Present: no acute distress, cachectic HEART Score - HEART Score Troponin: Troponin T < 0.010 ng/mL (0.00-0.029) 08/25/21 03:13 Results - Labs CBC & Chem 7: 08/26/21 06:38 08/26/21 06:38 Labs: Laboratory Last Values WBC 7.7 K/mm3 (4.5-11.0) 08/26/21 06:38 RBC 3.10 M/mm3 (3.65-5.03) L 08/26/21 06:38 Hgb 9.1 gm/dl (10.1-14.3) L 08/26/21 06:38 Hct 28.1 % (30.3-42.9) L D 08/26/21 06:38 MCV 90 fl (79-97) 08/26/21 06:38 MCH 29 pg (28-32) 08/26/21 06:38 MCHC 33 % (30-34) 08/26/21 06:38 RDW 15.0 % (13.2-15.2) 08/26/21 06:38 Plt Count 353 K/mm3 (140-440) 08/26/21 06:38 Lymph % (Auto) 10.7 % (13.4-35.0) L 08/26/21 06:38 [place] % (Auto) 10.4 % (0.0-7.3) H 08/26/21 06:38 Eos % (Auto) 0.4 % (0.0-4.3) 08/26/21 06:38 Baso % (Auto) 0.6 % (0.0-1.8) 08/26/21 06:38 Lymph # (Auto) 0.8 K/mm3 (1.2-5.4) L 08/26/21 06:38 [place] # (Auto) 0.8 K/mm3 (0.0-0.8) 08/26/21 06:38 Eos # (Auto) 0.0 K/mm3 (0.0-0.4) 08/26/21 06:38 Baso # (Auto) 0.0 K/mm3 (0.0-0.1) 08/26/21 06:38 Seg Neutrophils % 77.9 % (40.0-70.0) H 08/26/21 06:38 Seg Neutrophils # 6.0 K/mm3 (1.8-7.7) 08/26/21 06:38 PT 13.8 Sec. (12.2-14.9) 08/25/21 05:12 INR 0.96 (0.87-1.13) 08/25/21 05:12 APTT 30.3 Sec. (24.2-36.6) 08/25/21 05:12 Sodium 140 mmol/L (137-145) 08/26/21 06:38 Potassium 3.5 mmol/L (3.6-5.0) L 08/26/21 06:38 Chloride 105.9 mmol/L (98-107) 08/26/21 06:38 Carbon Dioxide 23 mmol/L (22-30) 08/26/21 06:38 Anion Gap 15 mmol/L 08/26/21 06:38 BUN 19 mg/dL (7-17) H 08/26/21 06:38 Creatinine 0.8 mg/dL (0.6-1.2) 08/26/21 06:38 Estimated GFR > 60 ml/min 08/26/21 06:38 BUN/Creatinine Ratio 24 % 08/26/21 06:38 Glucose 163 mg/dL (65-100) H 08/26/21 06:38 POC Glucose 107 mg/dL (70-105) H 08/26/21 21:49 Lactic Acid 1.50 mmol/L (0.7-2.0) 08/25/21 05:29 Calcium 8.3 mg/dL (8.4-10.2) L 08/26/21 06:38 Magnesium 1.80 mg/dL (1.7-2.3) 08/25/21 03:13 Iron 32 ug/dL (37-170) L 08/26/21 06:38 TIBC 135 mcg/dL (250-450) L 08/26/21 06:38 Total Bilirubin 0.30 mg/dL (0.1-1.2) 08/26/21 06:38 AST 109 units/L (5-40) H 08/26/21 06:38 ALT 47 units/L (7-56) 08/26/21 06:38 Alkaline Phosphatase 352 units/L (35-129) H 08/26/21 06:38 Total Creatine Kinase 51 units/L (30-135) 08/25/21 03:13 Troponin T < 0.010 ng/mL (0.00-0.029) 08/25/21 03:13 Total Protein 5.7 g/dL (6.3-8.2) L 08/26/21 06:38 Albumin 2.7 g/dL (3.9-5) L 08/26/21 06:38 Albumin/Globulin Ratio 0.9 % 08/26/21 06:38 Carcinoembryonic Ag 21.8 ng/mL (0.0-2.4) H 08/25/21 08:04 CA 19-9 Antigen 7 U/mL (<34) 08/25/21 08:04 TSH 2.440 mlU/mL (0.270-4.200) 08/25/21 03:13 Urine Color Yellow (Yellow) 08/26/21 05:09 Urine Turbidity Clear (Clear) 08/26/21 05:09 Urine pH 5.0 (5.0-7.0) 08/26/21 05:09 Ur Specific [place] 1.020 (1.003-1.030) 08/26/21 05:09 Urine Protein <15 mg/dl mg/dL (Negative) 08/26/21 05:09 Urine Glucose (UA) >=500 mg/dL (Negative) 08/26/21 05:09 Urine Ketones 20 mg/dL (Negative) 08/26/21 05:09 Urine Blood Mod (Negative) 08/26/21 05:09 Urine Nitrite Neg (Negative) 08/26/21 05:09 Urine Bilirubin Neg (Negative) 08/26/21 05:09 Urine Urobilinogen < 2.0 mg/dL (<2.0) 08/26/21 05:09 Ur Leukocyte Esterase Mod (Negative) 08/26/21 05:09 Urine WBC (Auto) 33.0 /HPF (0.0-6.0) H 08/26/21 05:09 Urine RBC (Auto) 6.0 /HPF (0.0-6.0) 08/26/21 05:09 U Epithel Cells (Auto) 3.0 /HPF (0-13.0) 08/26/21 05:09 Urine Bacteria (Auto) 1+ /HPF (Negative) 08/26/21 05:09 Calcium Oxalate Crystal Few 08/26/21 05:09 Urine Mucus 2+ /HPF 08/26/21 05:09 Microbiology: Microbiology 08/25/21 06:02 Peripheral/Venous Blood Culture - Preliminary NO GROWTH AFTER 24 HOURS 08/25/21 05:29 Peripheral/Venous Blood Culture - Preliminary NO GROWTH AFTER 24 HOURS Pham/IV: Voiding Method Toilet Active Medications - Current Medications Current Medications: Generic Name Dose Route Start Last Admin Trade Name Freq PRN Reason Stop Dose Admin Acetaminophen 650 mg 08/25/21 07:13 Acetaminophen 325 Mg Tab PO Q4H PRN Pain MILD(1-3)/Fever >100.5/[place] Albuterol 2.5 mg 08/25/21 07:13 Albuterol 2.5 Mg/3 Ml Nebu IH Q4HRT PRN Shortness Of Breath Dextrose 50 ml 08/25/21 08:23 Dextrose 50% In Water (25gm) 50 Ml Syringe IV Q30MIN PRN Hypoglycemia Protocol Famotidine 20 mg 08/25/21 10:00 08/26/21 11:03 Famotidine 20 Mg/2 Ml Inj IV 20 mg DAILY PK Administration Heparin Sodium (Porcine) 5,000 unit 08/25/21 14:00 08/27/21 06:03 Heparin 5,000 Unit/1 Ml Vial SUB-Q 5,000 unit Q8HR PK Administration Insulin Human Regular 0 units 08/25/21 11:30 08/27/21 00:27 Insulin Regular, Human 100 Units/1 Ml SUB-Q Not Given ACHS PK Protocol Morphine Sulfate 2 mg 08/25/21 07:13 08/26/21 19:01 Morphine 2 Mg/1 Ml Inj IV 2 mg Q4H PRN Administration Pain, Moderate (4-6) Naloxone HCl 0.1 mg 08/25/21 07:13 Naloxone 0.4 Mg/1 Ml Inj IV Q2MIN PRN Res Rate </= 8 or 02 SAT < 92% Ondansetron HCl 4 mg 08/25/21 07:13 Ondansetron 4 Mg/2 Ml Inj IV Q4H PRN Nausea And Vomiting Sodium Chloride 10 ml 08/25/21 10:00 08/27/21 00:29 Sodium Chloride 0.9% 10 Ml Flush Syringe IV 10 ml BID PK Administration Sodium Chloride 10 ml 08/25/21 07:13 Sodium Chloride 0.9% 10 Ml Flush Syringe IV PRN PRN LINE FLUSH Nutrition/Malnutrition Assess - Dietary Evaluation Nutrition/Malnutrition Findings: Nutrition Notes Start: 08/25/21 12:28 Freq: Status: Active Protocol: Document 08/25/21 12:28 STEF (Rec: 08/25/21 12:44 STEF [id number]) Nutrition Notes Need for Assessment generated from: MD Order,Education Initial or Follow up Brief Note Current Diagnosis Diabetes,Hypertension Other Pertinent Diagnosis Choledocolithiasis, Solid Liver Mass, Abdominal Pain, Abnormal Weight Loss. Current Diet NPO (since 08/25 04:31). Height 5 ft 4 in Weight 50.802 kg [place] Body Weight (kg) 54.54 BMI 19.2 Weight change and time frame None provided at admission. Weight Status Appropriate Subjective/Other Information RD consult for nutrition education assessment. Pt currently on NPO. Pt is on Room Air, O2 saturation @ 100%, according to O2 Delivery Assessment notes. Bedside swallowing assessment passed, according to Swallow Screen notes. Pt states having loss more that 25 lb during the last couple of months and experiencing poor appetite, according to History & Physical notes. PO intake held due to pending MRIand other studies, according to Progress notes. Pt still in critical condition , not a candidate for Nutrition Education at the time, will assess feasibility on F/U. Percent of energy/protein needs met: Pt currently on NPO. Nutrition Intervention Follow-Up By: 08/28/21 Additional Comments Nutrition education will be provided at F/U, if feasible. When pertinent, start monitoring food tolerance, %PO intake of meals, and BM.
[2021-08-27] MEDS: FAMOTIDINE 20 MG/2 ML INJ IV SCH (09:51)
--- NOTE | 2021-08-27 10:05 | Gastroenterology Progress Note ---
Assessment and Plan 1. Liver masses - concerning for malignancy, unclear primary, tumor markers pending. CT guided biopsy pending per IR (tomorrow/Saturday) 2. CBD stone/biliary dilatation - no signs of cholangitis at present time. monitor liver enzymes, await diagnostic work-up for liver lesions as no urgent indication for ercp at this time. Subjective Date of service: 08/27/21 Principal diagnosis: abd pain, liver lesions Interval history: no events overnight. tolerating clears. no n/v or fevers/chills Objective - Constitutional Vitals: Temp Pulse Resp BP Pulse Ox 98.1 F 84 16 120/67 100 08/26/21 23:34 08/27/21 04:25 08/27/21 04:25 08/27/21 04:25 08/27/21 04:25 General appearance: no acute distress - Respiratory Respiratory effort: normal Respiratory: bilateral: CTA - Gastrointestinal General gastrointestinal: Present: soft, tender (right sided ), non-distended - Labs CBC & Chem 7: 08/26/21 06:38 08/26/21 06:38 Labs: Laboratory Results - last 24 hr 08/25/21 08/25/21 08/26/21 08:04 08:04 11:19 POC Glucose 123 H Carcinoembryonic Ag 21.8 H CA 19-9 Antigen 7 08/26/21 08/26/21 08/27/21 15:53 21:49 07:55 POC Glucose 96 107 H 96 Carcinoembryonic Ag CA 19-9 Antigen
[2021-08-27] MEDS: MORPHINE 2 MG/1 ML INJ IV PRN (18:30)
[2021-08-28 05:58] LABS: Hematocrit 27.9 % (30.3-42.9); Mean Corpuscular HGB Conc 32 % (30-34); Mean Corpuscular Volume 91 fl (79-97); Platelet Count 317 K/mm3 (140-440); Red Blood Count 3.08 M/mm3 (3.65-5.03); Red Cell Distribution Width 15.1 % (13.2-15.2)
[2021-08-28 06:20] LABS: Alanine Aminotransferase 90 units/L (7-56); Albumin 2.4 g/dL (3.9-5); BUN/Creatinine Ratio 11; Blood Urea Nitrogen 8 mg/dL (7-17); Calcium 8.2 mg/dL (8.4-10.2); Hemolysis Index 0
[2021-08-28] MEDS: HEPARIN 5,000 UNIT/1 ML VIAL SUB-Q SCH ×3 (06:42→21:40)
[2021-08-28] MEDS: INSULIN REGULAR, HUMAN 100 UNITS/1 ML SUB-Q SCH ×4 (09:44→21:40)
--- NOTE | 2021-08-28 09:47 | Progress Note ---
Assessment and Plan Assessment and plan: This is a 76-year-old female with known past medical history of HTN and DM presented to the emergency room complaining of dizziness, unsteady gait for over a week, and right-sided abdominal pain for about 1 month. Patient reported that he symptoms started about a month ago when she started to experience intermittent sharp right abdominal pain on her right side. She stated that she noticed that the pain usually occurs in the evening and at night. She reported that the pain as an intermittent stabbing pain that is mainly localized on her right side. No alleviating nor exacerbating factors reported, and the pain is not associated with foods. Patient also reported dizziness/lightheadedness and unsteady gait that started about a week ago, poor appetite and over 25lbs of unintentional weight loss in the past couple of months. She denied any nausea or vomiting, no melena, no hematochezia, no fevers, nor night sweats, nor chills. Patient denied any direct contact with anyone who is sick or with known exposure to COVID 19. Per patient she received Both COVID vaccines and a recent booster. Patient was seen and examined in the ED. Patient is hemodynamically stable on RA. Denied any pain nor any discomfort at this time. No signs of any acute distress noted. Laboratory studies and imagings reviewed. CXR 1. No acute findings. CT head/Brain 1. No acute intracranial abnormality. 2. Mild microangiopathy CTA/P 1. Choledocholithiasis with large distal common bile duct stone and moderate pneumobilia 2. 2 ill-defined hypodense lesions posterior hepatic segment and anterior hepatic dome likely represent hepatic abscesses. Hepatic metastases are considered less likely Ultrasound Abdomen 1. Cholelithiasis . Gallbladder poorly visualized sonographically. Contrast- enhanced CT would be useful for further characterization. 2. Pneumobilia 3. Multiple solid liver masses General Surgery and GI already consulted in the ED. Patient is being admitted to the Med-Surg floor for further evaluation. 08/26: Patient seen and examined, awaiting CT guided biopsy planned for saturday. GI following and will also evaluate timing of ERCP due to the noted "Very large stone in the mid common bile duct". Patient tolerating PO, She verbalized understanding. ABD MRI: IMPRESSION: There are numerous liver masses consistent with a neoplastic or metastatic process. The primary lesion is not clearly evident on this exam. The remaining visualized visceral organs are unremarkable. I suspect this could represent gallbladder cancer or cholangiocarcinoma. Very large stone in the mid common bile duct with diffuse intrahepatic biliary dilatation. 08/27: Patient remains clinically stable improving some. She is planned for CT- guided biopsy of liver mass highly suspicious for malignancy of unknown primary at this time. I discussed with GI no urgency for an ERCP in regards to her common bile duct stone. No evidence of cholangitis at this time 08/28: Patient is a 76-year-old female admitted with abdominal pain that has been ongoing for months with about 25 pounds weight loss. On admission imaging studies revealed multiple solid liver masses suspected to be malignant and choledocholithiasis without cholangitis. Patient clinically stable this morning awaiting CT-guided biopsy. Following the biopsy was discussed with GI if patient can be discharged and followed outpatient for results review. GI will also discuss possible need for ERCP. #Choledocholithiasis with Stone #Multiple Solid Liver Masses- c/f malignancy - Noted on CT abd/pelvis- Choledocholithiasis with large distal common bile duct stone. - GI consulted - Keep patient NPO for now - MRI of the abdomen pending - Continuous IVF - PRN analgesia for pain control - General Surgery also consulted - Depends on MRI findings, might need ONC consult for further w/up #Acute Cystits #Moderate Pneumobilia #Possible Hepatic Abscesses - Noted on CT abd/pelvis - Patient is afebrile, hemodynamically stable, with no leukocytosis - Received X1 dose of IV Zosyn in the ED - Cultures pending - Hold off IV Abx for now - F/u on culture data - Continuous IVF - General Surgery consulted #Intermittent Abdominal Pain - Pain is sharp and localized on the right site, no associated with foods, no alleviating nor exacerbating factors - most likely due to above - No pain at time of assessment - Denied any N/V - PRN analgesia for pain #Hyponatremia #Dehydration - S/p IV resuscitation in the ED - NA improved post IV hydration - Continue IVF hydration - Strict intake and output #Hypertension - BP stable - Resume home meds once list is available - Continue blood pressure monitor per protocol - Maintain SBP less than 160 #Diabetes Mellitus - Per patient, Januvia discontinue by PCP since weight loss - Low dose SSI ACHS - Avoid Hypoglycemia #Abnormal weight Loss - Probably due to poor appetite vs malignancy - Keep NPO for now, continue cont. IVF - R/o malignancy as discussed above #GI/DVT Prophylaxis - PPI- Pepcid - Heparin SubQ - SCDs to bilateral lower extremities while in bed #Advance Care Planning - Thoroughly discussed disease process, care plan, diagnoses, and prognosis with patient at the bedside. Patient is full code. Patient aknowledged understanding and agreement with current care plan. All questions and concerns were addressed at this time. - Patient reported that her next living relative in the [place] is her sister, Graciela Cortes. She voiced that in case she becomes incapacitated and unable to make her own decision, her sister knows her wishes. History Interval history: Patient seen and examined resting comfortable. Still with intermittent abdominal pain but much improved. She is n.p.o. at this time for CT-guided biopsy Hospitalist Physical - Physical exam Narrative exam: General appearance: Present: no acute distress, cachectic - EENT Eyes: Present: PERRL, EOM intact ENT: hearing intact - Neck Neck: Present: supple, normal ROM - Respiratory Respiratory effort: normal Respiratory: bilateral: diminished - Cardiovascular Rhythm: regular Heart Sounds: Present: S1 & S2 - Extremities Extremities: no ischemia, pulses intact, pulses symmetrical Peripheral Pulses: within normal limits - Abdominal General gastrointestinal: Present: soft, non-distended, normal bowel sounds Female genitourinary: Present: deferred - Rectal Rectal Exam: deferred - Integumentary Integumentary: Present: clear, warm, dry - Musculoskeletal Musculoskeletal: generalized weakness - Psychiatric Psychiatric: appropriate mood/affect, cooperative - Neurologic Neurologic: CNII-XII intact, moves all extremities - Allied Health Allied health notes reviewed: nursing - Constitutional Vitals: Temp Pulse Resp BP Pulse Ox 98.6 F 95 H 18 140/68 99 08/28/21 05:34 08/28/21 05:34 08/28/21 05:34 08/28/21 05:34 08/28/21 05:34 General appearance: Present: no acute distress, cachectic HEART Score - HEART Score Troponin: Troponin T < 0.010 ng/mL (0.00-0.029) 08/25/21 03:13 Results - Labs CBC & Chem 7: 08/28/21 05:16 08/28/21 05:16 Labs: Laboratory Last Values WBC 6.5 K/mm3 (4.5-11.0) 08/28/21 05:16 RBC 3.08 M/mm3 (3.65-5.03) L 08/28/21 05:16 Hgb 9.0 gm/dl (10.1-14.3) L 08/28/21 05:16 Hct 27.9 % (30.3-42.9) L 08/28/21 05:16 MCV 91 fl (79-97) 08/28/21 05:16 MCH 29 pg (28-32) 08/28/21 05:16 MCHC 32 % (30-34) 08/28/21 05:16 RDW 15.1 % (13.2-15.2) 08/28/21 05:16 Plt Count 317 K/mm3 (140-440) 08/28/21 05:16 Lymph % (Auto) 10.7 % (13.4-35.0) L 08/26/21 06:38 [place] % (Auto) 10.4 % (0.0-7.3) H 08/26/21 06:38 Eos % (Auto) 0.4 % (0.0-4.3) 08/26/21 06:38 Baso % (Auto) 0.6 % (0.0-1.8) 08/26/21 06:38 Lymph # (Auto) 0.8 K/mm3 (1.2-5.4) L 08/26/21 06:38 [place] # (Auto) 0.8 K/mm3 (0.0-0.8) 08/26/21 06:38 Eos # (Auto) 0.0 K/mm3 (0.0-0.4) 08/26/21 06:38 Baso # (Auto) 0.0 K/mm3 (0.0-0.1) 08/26/21 06:38 Seg Neutrophils % 77.9 % (40.0-70.0) H 08/26/21 06:38 Seg Neutrophils # 6.0 K/mm3 (1.8-7.7) 08/26/21 06:38 PT 13.8 Sec. (12.2-14.9) 08/25/21 05:12 INR 0.96 (0.87-1.13) 08/25/21 05:12 APTT 30.3 Sec. (24.2-36.6) 08/25/21 05:12 Sodium 144 mmol/L (137-145) 08/28/21 05:16 Potassium 3.3 mmol/L (3.6-5.0) L 08/28/21 05:16 Chloride 110.0 mmol/L (98-107) H 08/28/21 05:16 Carbon Dioxide 26 mmol/L (22-30) 08/28/21 05:16 Anion Gap 11 mmol/L 08/28/21 05:16 BUN 8 mg/dL (7-17) 08/28/21 05:16 Creatinine 0.7 mg/dL (0.6-1.2) 08/28/21 05:16 Estimated GFR > 60 ml/min 08/28/21 05:16 BUN/Creatinine Ratio 11 % 08/28/21 05:16 Glucose 114 mg/dL (65-100) H 08/28/21 05:16 POC Glucose 108 mg/dL (70-105) H 08/28/21 07:42 Lactic Acid 1.50 mmol/L (0.7-2.0) 08/25/21 05:29 Calcium 8.2 mg/dL (8.4-10.2) L 08/28/21 05:16 Magnesium 1.80 mg/dL (1.7-2.3) 08/25/21 03:13 Iron 32 ug/dL (37-170) L 08/26/21 06:38 TIBC 135 mcg/dL (250-450) L 08/26/21 06:38 Total Bilirubin 0.30 mg/dL (0.1-1.2) 08/28/21 05:16 AST 145 units/L (5-40) H 08/28/21 05:16 ALT 90 units/L (7-56) H 08/28/21 05:16 Alkaline Phosphatase 375 units/L (35-129) H 08/28/21 05:16 Total Creatine Kinase 51 units/L (30-135) 08/25/21 03:13 Troponin T < 0.010 ng/mL (0.00-0.029) 08/25/21 03:13 Total Protein 5.4 g/dL (6.3-8.2) L 08/28/21 05:16 Albumin 2.4 g/dL (3.9-5) L 08/28/21 05:16 Albumin/Globulin Ratio 0.8 % 08/28/21 05:16 Carcinoembryonic Ag 21.8 ng/mL (0.0-2.4) H 08/25/21 08:04 CA 19-9 Antigen 7 U/mL (<34) 08/25/21 08:04 TSH 2.440 mlU/mL (0.270-4.200) 08/25/21 03:13 Urine Color Yellow (Yellow) 08/26/21 05:09 Urine Turbidity Clear (Clear) 08/26/21 05:09 Urine pH 5.0 (5.0-7.0) 08/26/21 05:09 Ur Specific [place] 1.020 (1.003-1.030) 08/26/21 05:09 Urine Protein <15 mg/dl mg/dL (Negative) 08/26/21 05:09 Urine Glucose (UA) >=500 mg/dL (Negative) 08/26/21 05:09 Urine Ketones 20 mg/dL (Negative) 08/26/21 05:09 Urine Blood Mod (Negative) 08/26/21 05:09 Urine Nitrite Neg (Negative) 08/26/21 05:09 Urine Bilirubin Neg (Negative) 08/26/21 05:09 Urine Urobilinogen < 2.0 mg/dL (<2.0) 08/26/21 05:09 Ur Leukocyte Esterase Mod (Negative) 08/26/21 05:09 Urine WBC (Auto) 33.0 /HPF (0.0-6.0) H 08/26/21 05:09 Urine RBC (Auto) 6.0 /HPF (0.0-6.0) 08/26/21 05:09 U Epithel Cells (Auto) 3.0 /HPF (0-13.0) 08/26/21 05:09 Urine Bacteria (Auto) 1+ /HPF (Negative) 08/26/21 05:09 Calcium Oxalate Crystal Few 08/26/21 05:09 Urine Mucus 2+ /HPF 08/26/21 05:09 Microbiology: Microbiology 08/25/21 05:29 Peripheral/Venous Blood Culture - Preliminary NO GROWTH AFTER 72 HOURS 08/25/21 06:02 Peripheral/Venous Blood Culture - Preliminary NO GROWTH AFTER 48 HOURS 08/26/21 05:09 Urine,Clean Catch Urine Culture - Preliminary NO GROWTH AFTER 24 HOURS Pham/IV: Voiding Method Toilet Active Medications - Current Medications Current Medications: Generic Name Dose Route Start Last Admin Trade Name Freq PRN Reason Stop Dose Admin Acetaminophen 650 mg 08/25/21 07:13 Acetaminophen 325 Mg Tab PO Q4H PRN Pain MILD(1-3)/Fever >100.5/[place] Albuterol 2.5 mg 08/25/21 07:13 Albuterol 2.5 Mg/3 Ml Nebu IH Q4HRT PRN Shortness Of Breath Dextrose 50 ml 08/25/21 08:23 Dextrose 50% In Water (25gm) 50 Ml Syringe IV Q30MIN PRN Hypoglycemia Protocol Famotidine 20 mg 08/25/21 10:00 08/27/21 09:51 Famotidine 20 Mg/2 Ml Inj IV 20 mg DAILY PK Administration Heparin Sodium (Porcine) 5,000 unit 08/25/21 14:00 08/28/21 06:42 Heparin 5,000 Unit/1 Ml Vial SUB-Q 5,000 unit Q8HR PK Administration Ferric Sodium Gluconate 110 mls @ 100 mls/hr 08/28/21 10:00 Complex 125 mg/ Sodium IV 08/28/21 11:05 Chloride ONCE ONE Potassium Chloride 10 meq in 100 mls @ 100 mls/hr 08/28/21 10:00 Kcl 10meq/100ml IV 08/28/21 13:59 Q1H COUNTS INCLUDE 234 BEDS AT THE [facility] Insulin Human Regular 0 units 08/25/21 11:30 08/28/21 09:44 Insulin Regular, Human 100 Units/1 Ml SUB-Q Not Given ACHS COUNTS INCLUDE 234 BEDS AT THE [facility] Protocol Morphine Sulfate 2 mg 08/25/21 07:13 08/27/21 18:30 Morphine 2 Mg/1 Ml Inj IV 2 mg Q4H PRN Administration Pain, Moderate (4-6) Naloxone HCl 0.1 mg 08/25/21 07:13 Naloxone 0.4 Mg/1 Ml Inj IV Q2MIN PRN Res Rate </= 8 or 02 SAT < 92% Ondansetron HCl 4 mg 08/25/21 07:13 Ondansetron 4 Mg/2 Ml Inj IV Q4H PRN Nausea And Vomiting Sodium Chloride 10 ml 08/25/21 10:00 08/27/21 22:00 Sodium Chloride 0.9% 10 Ml Flush Syringe IV 10 ml BID PK Administration Sodium Chloride 10 ml 08/25/21 07:13 Sodium Chloride 0.9% 10 Ml Flush Syringe IV PRN PRN LINE FLUSH Nutrition/Malnutrition Assess - Dietary Evaluation Nutrition/Malnutrition Findings: Nutrition Notes Start: 08/25/21 12:28 Freq: Status: Active Protocol: Document 08/25/21 12:28 STEF (Rec: 08/25/21 12:44 STEF [id number]) Nutrition Notes Need for Assessment generated from: MD Order,Education Initial or Follow up Brief Note Current Diagnosis Diabetes,Hypertension Other Pertinent Diagnosis Choledocolithiasis, Solid Liver Mass, Abdominal Pain, Abnormal Weight Loss. Current Diet NPO (since 08/25 04:31). Height 5 ft 4 in Weight 50.802 kg [place] Body Weight (kg) 54.54 BMI 19.2 Weight change and time frame None provided at admission. Weight Status Appropriate Subjective/Other Information RD consult for nutrition education assessment. Pt currently on NPO. Pt is on Room Air, O2 saturation @ 100%, according to O2 Delivery Assessment notes. Bedside swallowing assessment passed, according to Swallow Screen notes. Pt states having loss more that 25 lb during the last couple of months and experiencing poor appetite, according to History & Physical notes. PO intake held due to pending MRIand other studies, according to Progress notes. Pt still in critical condition , not a candidate for Nutrition Education at the time, will assess feasibility on F/U. Percent of energy/protein needs met: Pt currently on NPO. Nutrition Intervention Follow-Up By: 08/28/21 Additional Comments Nutrition education will be provided at F/U, if feasible. When pertinent, start monitoring food tolerance, %PO intake of meals, and BM.
[2021-08-28] MEDS: FAMOTIDINE 20 MG/2 ML INJ IV SCH (09:57)
[2021-08-28] MEDS ORDERED: SODIUM FERRIC GLUCON/SUCRO 125 MG in SODIUM CHLORIDE 0.9% 100 ML IV ONE (10:00)
--- NOTE | 2021-08-28 10:05 | Gastroenterology Progress Note ---
Assessment and Plan 1. CBD stones - US 08/25 revealed cholelithiasis, pneumobilia, multiple solid liver masses - CT 08/25 revealed choledocolithiasis w/ large CBD stone - Surgery has been consulted 2. Liver masses - biopsy today - results will determine next course of action Subjective Date of service: 08/28/21 Principal diagnosis: abd pain, liver lesions Interval history: Pt seen and examined. Laying comfortably in bed. Sister at bedside. No new complaints overnight. Pt is awaiting liver biopsy. Objective - Constitutional Vitals: Temp Pulse Resp BP Pulse Ox 98.6 F 95 H 18 140/68 99 08/28/21 05:34 08/28/21 05:34 08/28/21 05:34 08/28/21 05:34 08/28/21 05:34 General appearance: no acute distress - Labs CBC & Chem 7: 08/28/21 05:16 08/28/21 05:16 Labs: Laboratory Results - last 24 hr 08/27/21 08/27/21 08/27/21 11:14 16:22 21:45 WBC RBC Hgb Hct MCV MCH MCHC RDW Plt Count Sodium Potassium Chloride Carbon Dioxide Anion Gap BUN Creatinine Estimated GFR BUN/Creatinine Ratio Glucose POC Glucose 141 H 146 H 106 H Calcium Total Bilirubin AST ALT Alkaline Phosphatase Total Protein Albumin Albumin/Globulin Ratio 08/28/21 08/28/21 08/28/21 05:16 05:16 07:42 WBC 6.5 RBC 3.08 L Hgb 9.0 L Hct 27.9 L MCV 91 MCH 29 MCHC 32 RDW 15.1 Plt Count 317 Sodium 144 Potassium 3.3 L Chloride 110.0 H Carbon Dioxide 26 Anion Gap 11 BUN 8 Creatinine 0.7 Estimated GFR > 60 BUN/Creatinine Ratio 11 Glucose 114 H POC Glucose 108 H Calcium 8.2 L Total Bilirubin 0.30 AST 145 H ALT 90 H Alkaline Phosphatase 375 H Total Protein 5.4 L Albumin 2.4 L Albumin/Globulin Ratio 0.8
[2021-08-28] MEDS ORDERED: ONDANSETRON 4 MG/2 ML INJ IV NR (10:56)
[2021-08-28] MEDS ORDERED: HYDROmorphone 2 MG/1 ML INJ IV NR (10:59)
--- NOTE | 2021-08-28 11:44 | Hem/Onc Consultation ---
History of Present Illness - Reason for Consult Consult date: 08/28/21 Liver Carcinoma - History of Present Illness Heme/Onc Consult Note Seen via amplify CPT 35903 Dx Liver carcinoma This is a 76yo female who presented to [facility] ED with complaints of dizziness, unsteady gait for over a week, and right-sided abdominal pain for about 1 month. Past medical history of HTN and DM. Patient also reports dizziness/lightheadedness and unsteady gait that started about a week ago, poor appetite and over 25lbs of unintentional weight loss in the past couple of months. She denied any nausea or vomiting, no melena, no hematochezia, no fevers, nor night sweats, nor chills. MRI abdomen: multiple liver lesions concerning for carcinoma, possibly metastatic disease. Stone seen in common bile duct with intrahepatic biliary dilitation. Oncology consulted for evaluation of liver masses, concerning for malignancy. Patient examined at bedside, in no acute distress, accompanied by sister. Reports feeling better than previous days. Denies bleeding. Reports pain on right side and ~20lb unintentional weightloss. DATA REVIEWED BELOW IMP: Liver lesions, concerning for carcinoma Anemia likely related to malignancy PLAN: CT guided liver biopsy Outpatient oncology and GI follow up for treatment and management Laboratory Last Values WBC 6.5 K/mm3 (4.5-11.0) 08/28/21 05:16 RBC 3.08 M/mm3 (3.65-5.03) L 08/28/21 05:16 Hgb 9.0 gm/dl (10.1-14.3) L 08/28/21 05:16 Hct 27.9 % (30.3-42.9) L 08/28/21 05:16 MCV 91 fl (79-97) 08/28/21 05:16 MCH 29 pg (28-32) 08/28/21 05:16 MCHC 32 % (30-34) 08/28/21 05:16 RDW 15.1 % (13.2-15.2) 08/28/21 05:16 Plt Count 317 K/mm3 (140-440) 08/28/21 05:16 PT 13.8 Sec. (12.2-14.9) 08/25/21 05:12 INR 0.96 (0.87-1.13) 08/25/21 05:12 APTT 30.3 Sec. (24.2-36.6) 08/25/21 05:12 Creatinine 0.7 mg/dL (0.6-1.2) 08/28/21 05:16 Iron 32 ug/dL (37-170) L 08/26/21 06:38 TIBC 135 mcg/dL (250-450) L 08/26/21 06:38 AST 145 units/L (5-40) H 08/28/21 05:16 ALT 90 units/L (7-56) H 08/28/21 05:16 Alkaline Phosphatase 375 units/L (35-129) H 08/28/21 05:16 Carcinoembryonic Ag 21.8 ng/mL (0.0-2.4) H 08/25/21 08:04 CA 19-9 Antigen 7 U/mL (<34) 08/25/21 08:04 Past History Past Medical History: diabetes, hypertension Past Surgical History: No surgical history Social history: alcohol abuse (Quit over 20 years ago) Family history: hypertension Medications and Allergies Allergies Allergy/AdvReac Type Severity Reaction Status Date / Time No Known Allergies Allergy Verified 08/28/21 09:47 Home Medications Medication Instructions Recorded Confirmed Last Taken Type Amlodipine Besylate/Benazepril 1 cap PO QDAY 08/25/21 08/28/21 1 Day Ago History [Amlodipine-Benazepril 5-40 mg] ~08/24/21 Active Meds: Active Medications Acetaminophen (Acetaminophen 325 Mg Tab) 650 mg PO Q4H PRN PRN Reason: Pain MILD(1-3)/Fever >100.5/[place] Albuterol (Albuterol 2.5 Mg/3 Ml Nebu) 2.5 mg IH Q4HRT PRN PRN Reason: Shortness Of Breath Amlodipine Besylate (Amlodipine 5 Mg Tab) 5 mg PO QDAY PK Dextrose (Dextrose 50% In Water (25gm) 50 Ml Syringe) 50 ml IV Q30MIN PRN; Protocol PRN Reason: Hypoglycemia Famotidine (Famotidine 20 Mg Tab) 20 mg PO DAILY PK Heparin Sodium (Porcine) (Heparin 5,000 Unit/1 Ml Vial) 5,000 unit SUB-Q Q8HR PK Last Admin: 08/28/21 06:42 Dose: 5,000 unit Hydromorphone HCl (Hydromorphone 2 Mg/1 Ml Inj) 2 mg IV MACHINE BRUSHER NR Stop: 08/28/21 20:00 Potassium Chloride (Kcl 10meq/100ml) 10 meq in 100 mls @ 100 mls/hr IV Q1H [facility] Stop: 08/28/21 13:59 Insulin Human Regular (Insulin Regular, Human 100 Units/1 Ml) 0 units SUB-Q ACHS [facility]; Protocol Last Admin: 08/28/21 09:44 Dose: Not Given Lisinopril (Lisinopril 40 Mg Tab) 40 mg PO QDAY [facility] Morphine Sulfate (Morphine 2 Mg/1 Ml Inj) 2 mg IV Q4H PRN PRN Reason: Pain, Moderate (4-6) Last Admin: 08/27/21 18:30 Dose: 2 mg Naloxone HCl (Naloxone 0.4 Mg/1 Ml Inj) 0.1 mg IV Q2MIN PRN PRN Reason: Res Rate </= 8 or 02 SAT < 92% Ondansetron HCl (Ondansetron 4 Mg/2 Ml Inj) 4 mg IV Q4H PRN PRN Reason: Nausea And Vomiting Ondansetron HCl (Ondansetron 4 Mg/2 Ml Inj) 2 mg IV MACHINE BRUSHER NR Stop: 08/28/21 20:00 Sodium Chloride (Sodium Chloride 0.9% 10 Ml Flush Syringe) 10 ml IV BID [facility] Last Admin: 08/28/21 09:57 Dose: 10 ml Sodium Chloride (Sodium Chloride 0.9% 10 Ml Flush Syringe) 10 ml IV PRN PRN PRN Reason: LINE FLUSH Exam - Constitutional Vitals: Last Vital Signs Temp 98.6 F 08/28/21 05:34 Pulse 95 H 08/28/21 05:34 Resp 18 08/28/21 05:34 BP 140/68 08/28/21 05:34 Pulse Ox 99 08/28/21 05:34 Results - Labs lab Results: Laboratory Results - last 24 hr 08/27/21 08/27/21 08/28/21 16:22 21:45 05:16 WBC 6.5 RBC 3.08 L Hgb 9.0 L Hct 27.9 L MCV 91 MCH 29 MCHC 32 RDW 15.1 Plt Count 317 Sodium Potassium Chloride Carbon Dioxide Anion Gap BUN Creatinine Estimated GFR BUN/Creatinine Ratio Glucose POC Glucose 146 H 106 H Calcium Total Bilirubin AST ALT Alkaline Phosphatase Total Protein Albumin Albumin/Globulin Ratio 08/28/21 08/28/21 05:16 07:42 WBC RBC Hgb Hct MCV MCH MCHC RDW Plt Count Sodium 144 Potassium 3.3 L Chloride 110.0 H Carbon Dioxide 26 Anion Gap 11 BUN 8 Creatinine 0.7 Estimated GFR > 60 BUN/Creatinine Ratio 11 Glucose 114 H POC Glucose 108 H Calcium 8.2 L Total Bilirubin 0.30 AST 145 H ALT 90 H Alkaline Phosphatase 375 H Total Protein 5.4 L Albumin 2.4 L Albumin/Globulin Ratio 0.8
[2021-08-28] MEDS: LISINOPRIL 40 MG TAB PO SCH (12:00)
[2021-08-28] MEDS: amLODIPine 5 MG TAB PO SCH (12:00)
[2021-08-28] MEDS: POTASSIUM CHLORIDE 10 MEQ 10 MEQ/100 ML BAG IV SCH ×3 (12:53→21:22)
[2021-08-28] MEDS ORDERED: HYDROmorphone 1 MG/1 ML INJ ONE (13:24)
[2021-08-28] MEDS ORDERED: SODIUM CHLORIDE 0.9% 500 ML 0 ML ONE (13:30)
--- NOTE | 2021-08-28 15:58 | Cat Scan Report ---
CT-GUIDED LIVER BIOPSY INDICATION : right hepatic masses. COMPARISON: MR abdomen 08/25/2021 PROCEDURE: The risks (including but not limited to bleeding and infection) and benefits were explain ed to the patient and informed consent was obtained. All CT scans at this location are performed usi ng CT dose reduction for ALARA by means of automated exposure control. A time out procedure was performed. The procedure site was prepped and draped in the usual sterile f ashion and lidocaine was used for local anesthesia. Using CT guidance, a 17-gauge introducer needle was advanced to the leading edge of a 4.9 cm mass in the posterior right hepatic lobe. Four 18-gauge core biopsies were obtained. Pathology was present an d deemed the samples adequate. The patient tolerated the procedure well with no complications. IMPRESSION: Successful CT-guided biopsy of a 4.9 cm right hepatic lobe mass. Signer Name: Dereje Brantley Jr, MD Signed: 08/28/2021 3:50 PM Workstation Name: [id number]
[2021-08-28] MEDS ORDERED: SODIUM CHLORIDE 0.9% 1000 ML 1,000 ML IV ONE ×2 (18:00→21:44)
[2021-08-28 18:56] LABS: Hematocrit 29.3 % (30.3-42.9); Hemoglobin 9.4 gm/dl (10.1-14.3)
[2021-08-28] MEDS: SODIUM CHLORIDE 0.9% 1000 ML 1,000 ML IV SCH (21:56)
[2021-08-29] MEDS: POTASSIUM CHLORIDE 10 MEQ 10 MEQ/100 ML BAG IV SCH (00:27)
[2021-08-29] MEDS ORDERED: SODIUM CHLORIDE 0.9% 1000 ML 1,000 ML IV ONE (00:34)
--- NOTE | 2021-08-29 01:16 | Event Note ---
Date: 08/29/21 Patient is hypotensive status post liver biopsy. Blood pressure is low after normal saline bolus. We are going to transfer the [facility] overnight. We will give 1 L of fluid bolus and increase the normal saline to 150. We also order a stat CBC and CT scan of the abdomen
[2021-08-29 01:39] LABS: Hematocrit 23.9 % (30.3-42.9); Hemoglobin 7.6 gm/dl (10.1-14.3); Mean Corpuscular HGB Conc 32 % (30-34); Mean Corpuscular Volume 92 fl (79-97); Platelet Count 211 K/mm3 (140-440); Red Blood Count 2.59 M/mm3 (3.65-5.03); Red Cell Distribution Width 15.3 % (13.2-15.2)
[2021-08-29 02:39] LABS: Basophils % (Manual) 0 % (0.0-1.8); Eosinophils % (Manual) 0 % (0.0-4.3); Monocytes % (Manual) 0 % (0.0-7.3); Total Cells Counted 100
[2021-08-29 02:40] LABS: Anisocytosis 1+; Platelet Estimate Consistent w Auto
--- NOTE | 2021-08-29 03:06 | Cat Scan Report ---
CT ABDOMEN AND PELVIS WITH CONTRAST INDICATION / CLINICAL INFORMATION: rlq pain, IV and oral contrast. TECHNIQUE: Axial CT images were obtained through the abdomen and pelvis after 100 cc Omnipaque [address] scans at this location are performed using CT dose reduction for ALARA by means of automated exposure control. COMPARISON: CT abdomen and pelvis 08/25/2021 FINDINGS: LOWER CHEST: 3 mm solid pulmonary nodule right lower lobe image #6. No acute findings within the lowe r chest. LIVER: Numerous hepatic masses are again demonstrated one of the larger within the posterior segment of the right hepatic lobe measuring up to 5.5 cm and one of the larger within the medial segment of t he left hepatic lobe measuring up to 5.7 cm. Portal vein appears patent. GALLBLADDER / BILE DUCTS: Gallbladder not clearly identified possibly contracted. There is a region of concentric wall thickening involving what is thought to represent common bile duct or possibly the lower gallbladder neck. This measures 2.3 x 2.3 cm. Some residual contrast is present within this an d extends cephalad within dilated intrahepatic biliary ducts of the dependent right hepatic lobe. Add itional pneumobilia is present within the antidependent ducts, also dilated. SPLEEN: No significant abnormality. PANCREAS: No significant abnormality. ADRENALS: No significant abnormality. KIDNEYS/URETERS: No stones or hydronephrosis. No solid renal lesion. STOMACH / DUODENUM / SMALL BOWEL: The stomach, duodenum, and small bowel demonstrate no significant a bnormality. No specific abnormality of the mesentery demonstrated. COLON: No significant abnormality. APPENDIX: No significant abnormality. PERITONEUM: No dependent free fluid within the abdomen or pelvis. Small amount of free fluid within t he gallbladder fossa. LYMPH NODES: No significant adenopathy. AORTA / ARTERIES: Mild atherosclerotic calcification without acute abnormality. IVC / VEINS: No significant abnormality. URINARY BLADDER: No significant abnormality. REPRODUCTIVE ORGANS: No significant abnormality. ADDITIONAL ABDOMINAL/PELVIC FINDINGS: None. SKELETAL SYSTEM: Multilevel facet arthropathy of the mid and lower lumbar spine is demonstrated. Grad e 1 anterolisthesis of L4 on L5. No suspicious osseous lesions. IMPRESSION: 1. Concentric lesion in the region of the cystic duct or possibly common duct thought to reflect neop lasm with contracted gallbladder fundus adjacent. Primary differential considerations would include c holangiocarcinoma and/or gallbladder carcinoma. 2. Retention of contrast within the dilated intra and extrahepatic biliary ductal system demonstrated . Additional pneumobilia present within the left hepatic lobe. A component of cholangitis not exclude d. 3. 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 4. Small pulmonary nodule right lower lobe. Given the findings within the liver and gallbladder fossa , metastatic disease not excluded. Signer Name: Alverto Cohen II, MD Signed: 08/29/2021 3:01 AM Workstation Name: [id number]
[2021-08-29] MEDS: HEPARIN 5,000 UNIT/1 ML VIAL SUB-Q SCH ×3 (05:04→21:21)
[2021-08-29 05:22] LABS: Hematocrit 24.5 % (30.3-42.9); Hemoglobin 7.8 gm/dl (10.1-14.3); Mean Corpuscular HGB Conc 32 % (30-34); Mean Corpuscular Volume 94 fl (79-97); Platelet Count 241 K/mm3 (140-440); Red Blood Count 2.63 M/mm3 (3.65-5.03); Red Cell Distribution Width 15.3 % (13.2-15.2)
[2021-08-29 05:30] LABS: Albumin 1.8 g/dL (3.9-5); Calcium 7.2 mg/dL (8.4-10.2)
[2021-08-29] MEDS: INSULIN REGULAR, HUMAN 100 UNITS/1 ML SUB-Q SCH ×3 (08:48→21:21)
--- NOTE | 2021-08-29 09:56 | Gastroenterology Progress Note ---
<NAEL MULLIGAN - Last Filed: 08/29/21 10:20> Assessment and Plan 1. CBD stones - US 08/25 revealed cholelithiasis, pneumobilia, multiple solid liver masses - CT 08/25 revealed choledocolithiasis w/ large CBD stone - Surgery has been consulted - will likely eventually need ERCP for CBD stone - WBC 22.0 2. Liver masses - waiting on biopsy results - results will determine next course of action Subjective Date of service: 08/29/21 Principal diagnosis: abd pain, liver lesions Interval history: Pt seen and examined. Laying comfortably in bed. No new complaints overnight. Pt is awaiting liver biopsy results. Objective - Constitutional Vitals: Temp Pulse Resp BP Pulse Ox 98 F 99 H 18 108/58 99 08/29/21 04:00 08/29/21 08:00 08/29/21 08:00 08/29/21 08:00 08/29/21 08:00 General appearance: no acute distress - EENT ENT: hearing intact - Gastrointestinal General gastrointestinal: Present: soft, non-tender, non-distended - Neurologic Neurological: alert and oriented x3 - Labs CBC & Chem 7: 08/29/21 04:27 08/29/21 04:27 Labs: Laboratory Results - last 24 hr 08/26/21 08/26/21 08/28/21 06:38 06:38 11:32 WBC RBC Hgb Hct MCV MCH MCHC RDW Plt Count Add Manual Diff Total Counted Seg Neutrophils % Seg Neuts % (Manual) Band Neutrophils % Lymphocytes % (Manual) Reactive Lymphs % (Man) Monocytes % (Manual) Eosinophils % (Manual) Basophils % (Manual) Metamyelocytes % Myelocytes % Promyelocytes % Blast Cells % Nucleated RBC % Seg Neutrophils # Man Band Neutrophils # Lymphocytes # (Manual) Abs React Lymphs (Man) Monocytes # (Manual) Eosinophils # (Manual) Basophils # (Manual) Metamyelocytes # Myelocytes # Promyelocytes # Blast Cells # WBC Morphology Hypersegmented Neuts Hyposegmented Neuts Hypogranular Neuts Smudge Cells Toxic Granulation Toxic Vacuolation Dohle Bodies Pelger-Huet Anomaly Sam Rods Platelet Estimate Clumped Platelets Plt Clumps, EDTA Large Platelets Giant Platelets Platelet Satelliting Plt Morphology Comment RBC Morphology Dimorphic RBCs Polychromasia Hypochromasia Poikilocytosis Anisocytosis Microcytosis Macrocytosis Spherocytes Pappenheimer Bodies Sickle Cells Target Cells Tear Drop Cells Ovalocytes Helmet Cells [place] Bodies [place] Cells Bite Cells Crenated Cell Elliptocytes Acanthocytes (Spur) Rouleaux Hemoglobin C Crystals Schistocytes Malaria parasites [place] Bodies Hem Pathologist Commnt Sodium Potassium Chloride Carbon Dioxide Anion Gap BUN Creatinine Estimated GFR BUN/Creatinine Ratio Glucose POC Glucose 103 Calcium Total Bilirubin AST ALT Alkaline Phosphatase Total Protein Albumin Albumin/Globulin Ratio Carcinoembryonic Ag 20.8 H CA 19-9 Antigen 5 Blood Type Antibody Screen 08/28/21 08/28/21 08/28/21 16:06 18:01 21:38 WBC RBC Hgb 9.4 L Hct 29.3 L MCV MCH MCHC RDW Plt Count Add Manual Diff Total Counted Seg Neutrophils % Seg Neuts % (Manual) Band Neutrophils % Lymphocytes % (Manual) Reactive Lymphs % (Man) Monocytes % (Manual) Eosinophils % (Manual) Basophils % (Manual) Metamyelocytes % Myelocytes % Promyelocytes % Blast Cells % Nucleated RBC % Seg Neutrophils # Man Band Neutrophils # Lymphocytes # (Manual) Abs React Lymphs (Man) Monocytes # (Manual) Eosinophils # (Manual) Basophils # (Manual) Metamyelocytes # Myelocytes # Promyelocytes # Blast Cells # WBC Morphology Hypersegmented Neuts Hyposegmented Neuts Hypogranular Neuts Smudge Cells Toxic Granulation Toxic Vacuolation Dohle Bodies Pelger-Huet Anomaly Sam Rods Platelet Estimate Clumped Platelets Plt Clumps, EDTA Large Platelets Giant Platelets Platelet Satelliting Plt Morphology Comment RBC Morphology Dimorphic RBCs Polychromasia Hypochromasia Poikilocytosis Anisocytosis Microcytosis Macrocytosis Spherocytes Pappenheimer Bodies Sickle Cells Target Cells Tear Drop Cells Ovalocytes Helmet Cells [place] Bodies [place] Cells Bite Cells Crenated Cell Elliptocytes Acanthocytes (Spur) Rouleaux Hemoglobin C Crystals Schistocytes Malaria parasites [place] Bodies Hem Pathologist Commnt Sodium Potassium Chloride Carbon Dioxide Anion Gap BUN Creatinine Estimated GFR BUN/Creatinine Ratio Glucose POC Glucose 113 H 144 H Calcium Total Bilirubin AST ALT Alkaline Phosphatase Total Protein Albumin Albumin/Globulin Ratio Carcinoembryonic Ag CA 19-9 Antigen Blood Type Antibody Screen 08/29/21 08/29/21 08/29/21 01:23 04:27 04:27 WBC 21.5 H 22.0 H RBC 2.59 L 2.63 L Hgb 7.6 L 7.8 L Hct 23.9 L 24.5 L MCV 92 94 MCH 29 30 MCHC 32 32 RDW 15.3 H 15.3 H Plt Count 211 241 Add Manual Diff Complete Total Counted 100 Seg Neutrophils % Electron Tube Assembler Seg Neuts % (Manual) 99.0 H Band Neutrophils % 0 Lymphocytes % (Manual) 1.0 L Reactive Lymphs % (Man) 0 Monocytes % (Manual) 0 Eosinophils % (Manual) 0 Basophils % (Manual) 0 Metamyelocytes % 0 Myelocytes % 0 Promyelocytes % 0 Blast Cells % 0 Nucleated RBC % 1.0 H Seg Neutrophils # Man 21.3 H Band Neutrophils # 0.0 Lymphocytes # (Manual) 0.2 L Abs React Lymphs (Man) 0.0 Monocytes # (Manual) 0.0 Eosinophils # (Manual) 0.0 Basophils # (Manual) 0.0 Metamyelocytes # 0.0 Myelocytes # 0.0 Promyelocytes # 0.0 Blast Cells # 0.0 WBC Morphology Not Reportable Hypersegmented Neuts Not Reportable Hyposegmented Neuts Not Reportable Hypogranular Neuts Not Reportable Smudge Cells Not Reportable Toxic Granulation Not Reportable Toxic Vacuolation Not Reportable Dohle Bodies Not Reportable Pelger-Huet Anomaly Not Reportable Sam Rods Not Reportable Platelet Estimate Consistent w auto Clumped Platelets Not Reportable Plt Clumps, EDTA Not Reportable Large Platelets Not Reportable Giant Platelets Not Reportable Platelet Satelliting Not Reportable Plt Morphology Comment Not Reportable RBC Morphology Not Reportable Dimorphic RBCs Not Reportable Polychromasia Not Reportable Hypochromasia Not Reportable Poikilocytosis Not Reportable Anisocytosis 1+ Microcytosis Not Reportable Macrocytosis Not Reportable Spherocytes Not Reportable Pappenheimer Bodies Not Reportable Sickle Cells Not Reportable Target Cells Not Reportable Tear Drop Cells Not Reportable Ovalocytes Not Reportable Helmet Cells Not Reportable [place] Bodies Not Reportable [place] Not Reportable Ellie Cells Not Reportable Bite Cells Not Reportable Crenated Cell Not Reportable Elliptocytes Not Reportable Acanthocytes (Spur) Not Reportable Rouleaux Not Reportable Hemoglobin C Crystals Not Reportable Schistocytes Not Reportable Malaria parasites Not Reportable [place] Bodies Not Reportable Hem Pathologist Commnt No Sodium 141 Potassium 4.1 D Chloride 109.9 H Carbon Dioxide 20 L Anion Gap 15 BUN 10 Creatinine 1.1 D Estimated GFR 59 BUN/Creatinine Ratio 9 Glucose 157 H POC Glucose Calcium 7.2 L Total Bilirubin 0.30 AST 195 H ALT 92 H Alkaline Phosphatase 394 H Total Protein 4.7 L Albumin 1.8 L Albumin/Globulin Ratio 0.6 Carcinoembryonic Ag CA 19-9 Antigen Blood Type Antibody Screen 08/29/21 04:34 WBC RBC Hgb Hct MCV MCH MCHC RDW Plt Count Add Manual Diff Total Counted Seg Neutrophils % Seg Neuts % (Manual) Band Neutrophils % Lymphocytes % (Manual) Reactive Lymphs % (Man) Monocytes % (Manual) Eosinophils % (Manual) Basophils % (Manual) Metamyelocytes % Myelocytes % Promyelocytes % Blast Cells % Nucleated RBC % Seg Neutrophils # Man Band Neutrophils # Lymphocytes # (Manual) Abs React Lymphs (Man) Monocytes # (Manual) Eosinophils # (Manual) Basophils # (Manual) Metamyelocytes # Myelocytes # Promyelocytes # Blast Cells # WBC Morphology Hypersegmented Neuts Hyposegmented Neuts Hypogranular Neuts Smudge Cells Toxic Granulation Toxic Vacuolation Dohle Bodies Pelger-Huet Anomaly Sam Rods Platelet Estimate Clumped Platelets Plt Clumps, EDTA Large Platelets Giant Platelets Platelet Satelliting Plt Morphology Comment RBC Morphology Dimorphic RBCs Polychromasia Hypochromasia Poikilocytosis Anisocytosis Microcytosis Macrocytosis Spherocytes Pappenheimer Bodies Sickle Cells Target Cells Tear Drop Cells Ovalocytes Helmet Cells [place] Bodies [place] Cells Bite Cells Crenated Cell Elliptocytes Acanthocytes (Spur) Rouleaux Hemoglobin C Crystals Schistocytes Malaria parasites [place] Bodies Hem Pathologist Commnt Sodium Potassium Chloride Carbon Dioxide Anion Gap BUN Creatinine Estimated GFR BUN/Creatinine Ratio Glucose POC Glucose Calcium Total Bilirubin AST ALT Alkaline Phosphatase Total Protein Albumin Albumin/Globulin Ratio Carcinoembryonic Ag CA 19-9 Antigen Blood Type O POSITIVE Antibody Screen Negative <ALBERTO ORTIZ - Last Filed: 08/29/21 13:21> Assessment and Plan Patient seen and examined. I spent over 50% of time on management and care of the patient. noted hypotension and leukocytosis after liver biopsy, suspect reactive. however, recommend empiric abx for time being until further clarity given biliary obstruction. unclear if cbd obstruction is due to stone vs neoplastic process, but once stable from medical standpoint, would recommend transfer to tertiary care center for possible EUS and management of obstructive process. Objective - Constitutional Vitals: Temp Pulse Resp BP Pulse Ox 98.2 F 92 H 18 112/58 99 08/29/21 12:00 08/29/21 12:00 08/29/21 12:00 08/29/21 12:00 08/29/21 12:00 - Labs CBC & Chem 7: 08/29/21 04:27 08/29/21 04:27 Labs: Laboratory Results - last 24 hr 08/26/21 08/26/21 08/28/21 06:38 06:38 16:06 WBC RBC Hgb Hct MCV MCH MCHC RDW Plt Count Add Manual Diff Total Counted Seg Neutrophils % Seg Neuts % (Manual) Band Neutrophils % Lymphocytes % (Manual) Reactive Lymphs % (Man) Monocytes % (Manual) Eosinophils % (Manual) Basophils % (Manual) Metamyelocytes % Myelocytes % Promyelocytes % Blast Cells % Nucleated RBC % Seg Neutrophils # Man Band Neutrophils # Lymphocytes # (Manual) Abs React Lymphs (Man) Monocytes # (Manual) Eosinophils # (Manual) Basophils # (Manual) Metamyelocytes # Myelocytes # Promyelocytes # Blast Cells # WBC Morphology Hypersegmented Neuts Hyposegmented Neuts Hypogranular Neuts Smudge Cells Toxic Granulation Toxic Vacuolation Dohle Bodies Pelger-Huet Anomaly Sam Rods Platelet Estimate Clumped Platelets Plt Clumps, EDTA Large Platelets Giant Platelets Platelet Satelliting Plt Morphology Comment RBC Morphology Dimorphic RBCs Polychromasia Hypochromasia Poikilocytosis Anisocytosis Microcytosis Macrocytosis Spherocytes Pappenheimer Bodies Sickle Cells Target Cells Tear Drop Cells Ovalocytes Helmet Cells [place] Bodies [place] Cells Bite Cells Crenated Cell Elliptocytes Acanthocytes (Spur) Rouleaux Hemoglobin C Crystals Schistocytes Malaria parasites [place] Bodies Hem Pathologist Commnt Sodium Potassium Chloride Carbon Dioxide Anion Gap BUN Creatinine Estimated GFR BUN/Creatinine Ratio Glucose POC Glucose 113 H Calcium Total Bilirubin AST ALT Alkaline Phosphatase Total Protein Albumin Albumin/Globulin Ratio Carcinoembryonic Ag 20.8 H CA 19-9 Antigen 5 Blood Type Antibody Screen 0608/28/21 08/29/21 18:01 21:38 01:23 WBC 21.5 H RBC 2.59 L Hgb 9.4 L 7.6 L Hct 29.3 L 23.9 L MCV 92 MCH 29 MCHC 32 RDW 15.3 H Plt Count 211 Add Manual Diff Complete Total Counted 100 Seg Neutrophils % Electron Tube Assembler Seg Neuts % (Manual) 99.0 H Band Neutrophils % 0 Lymphocytes % (Manual) 1.0 L Reactive Lymphs % (Man) 0 Monocytes % (Manual) 0 Eosinophils % (Manual) 0 Basophils % (Manual) 0 Metamyelocytes % 0 Myelocytes % 0 Promyelocytes % 0 Blast Cells % 0 Nucleated RBC % 1.0 H Seg Neutrophils # Man 21.3 H Band Neutrophils # 0.0 Lymphocytes # (Manual) 0.2 L Abs React Lymphs (Man) 0.0 Monocytes # (Manual) 0.0 Eosinophils # (Manual) 0.0 Basophils # (Manual) 0.0 Metamyelocytes # 0.0 Myelocytes # 0.0 Promyelocytes # 0.0 Blast Cells # 0.0 WBC Morphology Not Reportable Hypersegmented Neuts Not Reportable Hyposegmented Neuts Not Reportable Hypogranular Neuts Not Reportable Smudge Cells Not Reportable Toxic Granulation Not Reportable Toxic Vacuolation Not Reportable Dohle Bodies Not Reportable Pelger-Huet Anomaly Not Reportable Sam Rods Not Reportable Platelet Estimate Consistent w auto Clumped Platelets Not Reportable Plt Clumps, EDTA Not Reportable Large Platelets Not Reportable Giant Platelets Not Reportable Platelet Satelliting Not Reportable Plt Morphology Comment Not Reportable RBC Morphology Not Reportable Dimorphic RBCs Not Reportable Polychromasia Not Reportable Hypochromasia Not Reportable Poikilocytosis Not Reportable Anisocytosis 1+ Microcytosis Not Reportable Macrocytosis Not Reportable Spherocytes Not Reportable Pappenheimer Bodies Not Reportable Sickle Cells Not Reportable Target Cells Not Reportable Tear Drop Cells Not Reportable Ovalocytes Not Reportable Helmet Cells Not Reportable [place] Bodies Not Reportable [place] Not Reportable [place]ie Cells Not Reportable Bite Cells Not Reportable Crenated Cell Not Reportable Elliptocytes Not Reportable Acanthocytes (Spur) Not Reportable Rouleaux Not Reportable Hemoglobin C Crystals Not Reportable Schistocytes Not Reportable Malaria parasites Not Reportable [place] Bodies Not Reportable Hem Pathologist Commnt No Sodium Potassium Chloride Carbon Dioxide Anion Gap BUN Creatinine Estimated GFR BUN/Creatinine Ratio Glucose POC Glucose 144 H Calcium Total Bilirubin AST ALT Alkaline Phosphatase Total Protein Albumin Albumin/Globulin Ratio Carcinoembryonic Ag CA 19-9 Antigen Blood Type Antibody Screen 08/29/21 08/29/21 08/29/21 04:27 04:27 04:34 WBC 22.0 H RBC 2.63 L Hgb 7.8 L Hct 24.5 L MCV 94 MCH 30 MCHC 32 RDW 15.3 H Plt Count 241 Add Manual Diff Total Counted Seg Neutrophils % Seg Neuts % (Manual) Band Neutrophils % Lymphocytes % (Manual) Reactive Lymphs % (Man) Monocytes % (Manual) Eosinophils % (Manual) Basophils % (Manual) Metamyelocytes % Myelocytes % Promyelocytes % Blast Cells % Nucleated RBC % Seg Neutrophils # Man Band Neutrophils # Lymphocytes # (Manual) Abs React Lymphs (Man) Monocytes # (Manual) Eosinophils # (Manual) Basophils # (Manual) Metamyelocytes # Myelocytes # Promyelocytes # Blast Cells # WBC Morphology Hypersegmented Neuts Hyposegmented Neuts Hypogranular Neuts Smudge Cells Toxic Granulation Toxic Vacuolation Dohle Bodies Pelger-Huet Anomaly Sam Rods Platelet Estimate Clumped Platelets Plt Clumps, EDTA Large Platelets Giant Platelets Platelet Satelliting Plt Morphology Comment RBC Morphology Dimorphic RBCs Polychromasia Hypochromasia Poikilocytosis Anisocytosis Microcytosis Macrocytosis Spherocytes Pappenheimer Bodies Sickle Cells Target Cells Tear Drop Cells Ovalocytes Helmet Cells [place] Bodies [place] Ellie Cells Bite Cells Crenated Cell Elliptocytes Acanthocytes (Spur) Rouleaux Hemoglobin C Crystals Schistocytes Malaria parasites [place] Bodies Hem Pathologist Commnt Sodium 141 Potassium 4.1 D Chloride 109.9 H Carbon Dioxide 20 L Anion Gap 15 BUN 10 Creatinine 1.1 D Estimated GFR 59 BUN/Creatinine Ratio 9 Glucose 157 H POC Glucose Calcium 7.2 L Total Bilirubin 0.30 AST 195 H ALT 92 H Alkaline Phosphatase 394 H Total Protein 4.7 L Albumin 1.8 L Albumin/Globulin Ratio 0.6 Carcinoembryonic Ag CA 19-9 Antigen Blood Type O POSITIVE Antibody Screen Negative
[2021-08-29] MEDS: FAMOTIDINE 20 MG TAB PO SCH (09:58)
[2021-08-29] MEDS: SODIUM CHLORIDE 0.9% 1000 ML 1,000 ML IV SCH (09:59)
[2021-08-29] MEDS: PIPERACIL/TAZOBACTA 4.5/NS 100 4.5 GM/100 ML VIAL IV SCH ×2 (13:51→20:13)
[2021-08-29] MEDS ORDERED: LACTATED RINGERS 1,000 ML IV SCH (15:00)
--- NOTE | 2021-08-29 15:00 | Progress Note ---
Assessment and Plan Assessment and plan: This is a 76-year-old female with HTN and DM admitted with liver mass s/p liver biopsy and transferred to [facility] on 08/28 for hypotension Neuro: NAD -CT head on admit with mild microangiopathy -Reorientation as needed -Maintain sleep-wake cycle -As needed analgesia Cardiac: h/o HTN -BP had hypotension unresponsive to NS bolus overnight -Currently on IVF -Hold antihypertension meds -Blood pressure monitoring per protocol Respiratory: Acute hypoxic respiratory failure (resolved) -Weaned from NC and currently on NC -Pulmonary hygiene -SPO2 monitor per protocol GI: Moderate protein calorie malnutrition, transaminitis, hepatic masses, Common bile duct stones -GI and hematology/oncology consulted, appreciate recommendations -24 hours +300 mL -PPI -CC diet -BR: RN reports patient having multiple loose stools -Trend LFTs -08/25 abdomen/pelvis CT showed cholelithiasis with large distal common bile duct stone and moderate pneumobilia, 2 ill-defined hypodense lesions posterior hepatic segment and anterior hepatic dome likely represents hepatic abscess or hepatic metastasis which are considered less likely -08/25 abdominal ultrasound showed cholelithiasis, pneumobilia, multiple solid liver masses -08/25 MRI abdomen with and without contrast showed numerous liver masses consistent with neoplastic or metastatic process, primary lesion not clearly evident on this exam, remaining visualized vascular organs unremarkable, may represent gallbladder cancer or cholangiocarcinoma, very large stone in the mid common bile duct with diffuse intrahepatic biliary dilatation. -08/28 CT-guided liver biopsy completed of 4.9 cm right hepatic lobe mass -08/29 abdomen/pelvis CT with contrast showed concentric lesion in the region of the cystic duct or possibly common duct thought to reflect neoplasm with con tracted gallbladder fundus adjacent, primary differential considerations include cholangiocarcinoma and or gallbladder carcinoma, retention of contrast with thin the dilated intra and extrahepatic biliary ductal systems demonstrated, additional pneumobilia present with large common bile duct stone, component of cholangitis not excluded, multiple hepatic masses compatible with neoplastic process, small pulmonary nodule right lower lobe -Heme-onc recommends outpatient oncology and GI follow-up for treatment and management : Hyperchloremic metabolic acidosis -Was on MIVF -Will discontinue NS at 125ml/hr and place on LR at 75ml/hr -Strict intake and output -Renally dose medications -Avoid nephrotoxic medications -Trend BMP ID: Cholangitis -Antibiotic therapy with Zosyn -f/u blood culture -Monitor WBC and temperature curve Endo: h/o DM -Avoid hypoglycemia -SSI -Accu-Cheks ACHS -Long-acting insulin, titrate as needed Heme: Leukocytosis -Trend CBC -Transfuse hemoglobin less than 7 -SCDs to BLE while in bed The high probability of a clinically significant, sudden or life threatening deterioration of the [cv] system(s) required my full and direct attention, intervention and personal management. The aggregate critical care time was [60] minutes. This time is in addition to time spent performing reported procedures but includes the following: [x] Data Review and interpretation [x] Patient assessment and monitoring of vital signs [x] Documentation [x] Medication orders and management Disposition Plan: imcu Total Time Spent with Patient (Minutes): 60 History Interval history: This is a 76-year-old female with HTN and DM who presents to the emergency department 08/25 with complaints of dizziness, unsteady gait over the past week, right-sided abdominal pain for about a month which started as intermittent sharp right abdominal pain usually at night and in the evening and unintentional weight loss of over 25 pounds over the past couple months. Work-up in the emergency department included a CT abdomen/pelvis which showed cholelithiasis with large distal common bile duct and moderate pneumobilia, 2 ill-defined hypodense lesions in the posterior hepatic segment and anterior hepatic dome likely representing hepatic abscess or metastasis and ultrasound of abdomen showed cholelithiasis, pneumobilia, multiple solid liver masses. Patient was admitted to the hospitalist service to the [facility] floor with consults to general surgery and GI. Hospital course to date: 08/26: Patient seen and examined, awaiting CT guided biopsy planned for saturday. GI following and will also evaluate timing of ERCP due to the noted "Very large stone in the mid common bile duct". Patient tolerating PO, She verbalized understanding. ABD MRI: IMPRESSION: There are numerous liver masses consistent with a neoplastic or metastatic process. The primary lesion is not clearly evident on this exam. The remaining visualized visceral organs are unremarkable. I suspect this could represent gallbladder cancer or cholangiocarcinoma. Very large stone in the mid common bile duct with diffuse intrahepatic biliary dilatation. 08/27: Patient remains clinically stable improving some. She is planned for CT- guided biopsy of liver mass highly suspicious for malignancy of unknown primary at this time. I discussed with GI no urgency for an ERCP in regards to her common bile duct stone. No evidence of cholangitis at this time 08/28: Patient is a 76-year-old female admitted with abdominal pain that has been ongoing for months with about 25 pounds weight loss. On admission imaging studies revealed multiple solid liver masses suspected to be malignant and choledocholithiasis without cholangitis. Patient clinically stable this morning awaiting CT-guided biopsy. Following the biopsy was discussed with GI if patient can be discharged and followed outpatient for results review. GI will also discuss possible need for ERCP. 08/29: Overnight patient was hypotensive and nonresponsive to normal saline and was transferred from the floor to [facility] for further monitoring on IVF post liver biopsy. This morning patient is confused but reoriented able. Patient's blood pressure is stable. Likely transferred back to the floor today. Started on Zosyn regarding concern for cholangitis. Hospitalist Physical - Constitutional Vitals: Temp Pulse Resp BP Pulse Ox 98.2 F 96 H 20 113/51 100 08/29/21 12:00 08/29/21 13:31 08/29/21 13:31 08/29/21 13:31 08/29/21 13:31 General appearance: Present: no acute distress, cachectic - EENT Eyes: Present: PERRL, EOM intact ENT: hearing intact, clear oral mucosa, dentition normal - Neck Neck: Present: normal ROM - Respiratory Respiratory effort: normal Respiratory: bilateral: CTA, diminished - Cardiovascular Rhythm: regular Heart Sounds: Present: S1 & S2. Absent: systolic murmur, diastolic murmur - Extremities Extremities: no ischemia, pulses intact, pulses symmetrical, No edema, normal temperature, normal color Peripheral Pulses: within normal limits - Abdominal General gastrointestinal: soft, non-tender, normal bowel sounds - Integumentary Integumentary: Present: warm, dry - Psychiatric Psychiatric: cooperative (intermittent confusion, NIHSS 0) - Neurologic Neurologic: CNII-XII intact, no focal deficits, moves all extremities - Allied Health Allied health notes reviewed: nursing, RT, social work HEART Score - HEART Score Troponin: Troponin T < 0.010 ng/mL (0.00-0.029) 08/25/21 03:13 Results - Labs CBC & Chem 7: 08/29/21 04:27 08/29/21 04:27 Labs: Laboratory Last Values WBC 22.0 K/mm3 (4.5-11.0) H 08/29/21 04:27 RBC 2.63 M/mm3 (3.65-5.03) L 08/29/21 04:27 Hgb 7.8 gm/dl (10.1-14.3) L 08/29/21 04:27 Hct 24.5 % (30.3-42.9) L 08/29/21 04:27 MCV 94 fl (79-97) 08/29/21 04:27 MCH 30 pg (28-32) 08/29/21 04:27 MCHC 32 % (30-34) 08/29/21 04:27 RDW 15.3 % (13.2-15.2) H 08/29/21 04:27 Plt Count 241 K/mm3 (140-440) 08/29/21 04:27 Lymph % (Auto) 10.7 % (13.4-35.0) L 08/26/21 06:38 Warrick % (Auto) 10.4 % (0.0-7.3) H 08/26/21 06:38 Eos % (Auto) 0.4 % (0.0-4.3) 08/26/21 06:38 Baso % (Auto) 0.6 % (0.0-1.8) 08/26/21 06:38 Lymph # (Auto) 0.8 K/mm3 (1.2-5.4) L 08/26/21 06:38 Warrick # (Auto) 0.8 K/mm3 (0.0-0.8) 08/26/21 06:38 Eos # (Auto) 0.0 K/mm3 (0.0-0.4) 08/26/21 06:38 Baso # (Auto) 0.0 K/mm3 (0.0-0.1) 08/26/21 06:38 Add Manual Diff Complete 08/29/21 01:23 Total Counted 100 08/29/21 01:23 Seg Neutrophils % Tool Grinder 08/29/21 01:23 Seg Neuts % (Manual) 99.0 % (40.0-70.0) H 08/29/21 01:23 Band Neutrophils % 0 % 08/29/21 01:23 Lymphocytes % (Manual) 1.0 % (13.4-35.0) L 08/29/21 01:23 Reactive Lymphs % (Man) 0 % 08/29/21 01:23 Monocytes % (Manual) 0 % (0.0-7.3) 08/29/21 01:23 Eosinophils % (Manual) 0 % (0.0-4.3) 08/29/21 01:23 Basophils % (Manual) 0 % (0.0-1.8) 08/29/21 01:23 Metamyelocytes % 0 % 08/29/21 01:23 Myelocytes % 0 % 08/29/21 01:23 Promyelocytes % 0 % 08/29/21 01:23 Blast Cells % 0 % 08/29/21 01:23 Nucleated RBC % 1.0 % (0.0-0.9) H 08/29/21 01:23 Seg Neutrophils # 6.0 K/mm3 (1.8-7.7) 08/26/21 06:38 Seg Neutrophils # Man 21.3 K/mm3 (1.8-7.7) H 08/29/21 01:23 Band Neutrophils # 0.0 K/mm3 08/29/21 01:23 Lymphocytes # (Manual) 0.2 K/mm3 (1.2-5.4) L 08/29/21 01:23 Abs React Lymphs (Man) 0.0 K/mm3 08/29/21 01:23 Monocytes # (Manual) 0.0 K/mm3 (0.0-0.8) 08/29/21 01:23 Eosinophils # (Manual) 0.0 K/mm3 (0.0-0.4) 08/29/21 01:23 Basophils # (Manual) 0.0 K/mm3 (0.0-0.1) 08/29/21 01:23 Metamyelocytes # 0.0 K/mm3 08/29/21 01:23 Myelocytes # 0.0 K/mm3 08/29/21 01:23 Promyelocytes # 0.0 K/mm3 08/29/21 01:23 Blast Cells # 0.0 K/mm3 08/29/21 01:23 WBC Morphology Not Reportable 08/29/21 01:23 Hypersegmented Neuts Not Reportable 08/29/21 01:23 Hyposegmented Neuts Not Reportable 08/29/21 01:23 Hypogranular Neuts Not Reportable 08/29/21 01:23 Smudge Cells Not Reportable 08/29/21 01:23 Toxic Granulation Not Reportable 08/29/21 01:23 Toxic Vacuolation Not Reportable 08/29/21 01:23 Dohle Bodies Not Reportable 08/29/21 01:23 Pelger-Huet Anomaly Not Reportable 08/29/21 01:23 Sam Rods Not Reportable 08/29/21 01:23 Platelet Estimate Consistent w auto 08/29/21 01:23 Clumped Platelets Not Reportable 08/29/21 01:23 Plt Clumps, EDTA Not Reportable 08/29/21 01:23 Large Platelets Not Reportable 08/29/21 01:23 Giant Platelets Not Reportable 08/29/21 01:23 Platelet Satelliting Not Reportable 08/29/21 01:23 Plt Morphology Comment Not Reportable 08/29/21 01:23 RBC Morphology Not Reportable 08/29/21 01:23 Dimorphic RBCs Not Reportable 08/29/21 01:23 Polychromasia Not Reportable 08/29/21 01:23 Hypochromasia Not Reportable 08/29/21 01:23 Poikilocytosis Not Reportable 08/29/21 01:23 Anisocytosis 1+ 08/29/21 01:23 Microcytosis Not Reportable 08/29/21 01:23 Macrocytosis Not Reportable 08/29/21 01:23 Spherocytes Not Reportable 08/29/21 01:23 Pappenheimer Bodies Not Reportable 08/29/21 01:23 Sickle Cells Not Reportable 08/29/21 01:23 Target Cells Not Reportable 08/29/21 01:23 Tear Drop Cells Not Reportable 08/29/21 01:23 Ovalocytes Not Reportable 08/29/21 01:23 Helmet Cells Not Reportable 08/29/21 01:23 [place] Bodies Not Reportable 08/29/21 01:23 [place] Rings Not Reportable 08/29/21 01:23 Ellie Cells Not Reportable 08/29/21 01:23 Bite Cells Not Reportable 08/29/21 01:23 Crenated Cell Not Reportable 08/29/21 01:23 Elliptocytes Not Reportable 08/29/21 01:23 Acanthocytes (Spur) Not Reportable 08/29/21 01:23 Rouleaux Not Reportable 08/29/21 01:23 Hemoglobin C Crystals Not Reportable 08/29/21 01:23 Schistocytes Not Reportable 08/29/21 01:23 Malaria parasites Not Reportable 08/29/21 01:23 Irving Bodies Not Reportable 08/29/21 01:23 Hem Pathologist Commnt No 08/29/21 01:23 PT 13.8 Sec. (12.2-14.9) 08/25/21 05:12 INR 0.96 (0.87-1.13) 08/25/21 05:12 APTT 30.3 Sec. (24.2-36.6) 08/25/21 05:12 Sodium 141 mmol/L (137-145) 08/29/21 04:27 Potassium 4.1 mmol/L (3.6-5.0) D 08/29/21 04:27 Chloride 109.9 mmol/L (98-107) H 08/29/21 04:27 Carbon Dioxide 20 mmol/L (22-30) L 08/29/21 04:27 Anion Gap 15 mmol/L 08/29/21 04:27 BUN 10 mg/dL (7-17) 08/29/21 04:27 Creatinine 1.1 mg/dL (0.6-1.2) D 08/29/21 04:27 Estimated GFR 59 ml/min 08/29/21 04:27 BUN/Creatinine Ratio 9 % 08/29/21 04:27 Glucose 157 mg/dL (65-100) H 08/29/21 04:27 POC Glucose 144 mg/dL (70-105) H 08/28/21 21:38 Lactic Acid 1.50 mmol/L (0.7-2.0) 08/25/21 05:29 Calcium 7.2 mg/dL (8.4-10.2) L 08/29/21 04:27 Magnesium 1.80 mg/dL (1.7-2.3) 08/25/21 03:13 Iron 32 ug/dL (37-170) L 08/26/21 06:38 TIBC 135 mcg/dL (250-450) L 08/26/21 06:38 Total Bilirubin 0.30 mg/dL (0.1-1.2) 08/29/21 04:27 AST 195 units/L (5-40) H 08/29/21 04:27 ALT 92 units/L (7-56) H 08/29/21 04:27 Alkaline Phosphatase 394 units/L (35-129) H 08/29/21 04:27 Total Creatine Kinase 51 units/L (30-135) 08/25/21 03:13 Troponin T < 0.010 ng/mL (0.00-0.029) 08/25/21 03:13 Total Protein 4.7 g/dL (6.3-8.2) L 08/29/21 04:27 Albumin 1.8 g/dL (3.9-5) L 08/29/21 04:27 Albumin/Globulin Ratio 0.6 % 08/29/21 04:27 Carcinoembryonic Ag 20.8 ng/mL (0.0-2.4) H 08/26/21 06:38 CA 19-9 Antigen 5 U/mL (<34) 08/26/21 06:38 TSH 2.440 mlU/mL (0.270-4.200) 08/25/21 03:13 Urine Color Yellow (Yellow) 08/26/21 05:09 Urine Turbidity Clear (Clear) 08/26/21 05:09 Urine pH 5.0 (5.0-7.0) 08/26/21 05:09 Ur Specific [place] 1.020 (1.003-1.030) 08/26/21 05:09 Urine Protein <15 mg/dl mg/dL (Negative) 08/26/21 05:09 Urine Glucose (UA) >=500 mg/dL (Negative) 08/26/21 05:09 Urine Ketones 20 mg/dL (Negative) 08/26/21 05:09 Urine Blood Mod (Negative) 08/26/21 05:09 Urine Nitrite Neg (Negative) 08/26/21 05:09 Urine Bilirubin Neg (Negative) 08/26/21 05:09 Urine Urobilinogen < 2.0 mg/dL (<2.0) 08/26/21 05:09 Ur Leukocyte Esterase Mod (Negative) 08/26/21 05:09 Urine WBC (Auto) 33.0 /HPF (0.0-6.0) H 08/26/21 05:09 Urine RBC (Auto) 6.0 /HPF (0.0-6.0) 08/26/21 05:09 U Epithel Cells (Auto) 3.0 /HPF (0-13.0) 08/26/21 05:09 Urine Bacteria (Auto) 1+ /HPF (Negative) 08/26/21 05:09 Calcium Oxalate Crystal Few 08/26/21 05:09 Urine Mucus 2+ /HPF 08/26/21 05:09 Blood Type O POSITIVE 08/29/21 04:34 Antibody Screen Negative 08/29/21 04:34 Microbiology: Microbiology 08/25/21 06:02 Peripheral/Venous Blood Culture - Preliminary NO GROWTH AFTER 4 DAYS 08/25/21 05:29 Peripheral/Venous Blood Culture - Preliminary NO GROWTH AFTER 4 DAYS 08/26/21 05:09 Urine,Clean Catch Urine Culture - Final Pham/IV: Voiding Method Incontinent Active Medications - Current Medications Current Medications: Generic Name Dose Route Start Last Admin Trade Name Freq PRN Reason Stop Dose Admin Acetaminophen 650 mg 08/25/21 07:13 Acetaminophen 325 Mg Tab PO Q4H PRN Pain MILD(1-3)/Fever >100.5/[place] Albuterol 2.5 mg 08/25/21 07:13 Albuterol 2.5 Mg/3 Ml Nebu IH Q4HRT PRN Shortness Of Breath Dextrose 50 ml 08/25/21 08:23 Dextrose 50% In Water (25gm) 50 Ml Syringe IV Q30MIN PRN Hypoglycemia Protocol Famotidine 20 mg 08/29/21 10:00 08/29/21 09:58 Famotidine 20 Mg Tab PO 20 mg DAILY PK Administration Heparin Sodium (Porcine) 5,000 unit 08/25/21 14:00 08/29/21 13:11 Heparin 5,000 Unit/1 Ml Vial SUB-Q 5,000 unit Q8HR PK Administration Piperacillin Sod/Tazobactam Sod 4.5 gm in 100 mls @ 200 mls/hr 08/29/21 13:00 08/29/21 13:51 Zosyn/Ns 4.5gm/100ml IV 200 mls/hr Q8H PK Administration Protocol Lactated Ringer's 1,000 mls @ 75 mls/hr 08/29/21 15:00 Lactated Ringers IV 06/15/22 04:19 DIRECT [facility] Insulin Human Regular 0 units 08/25/21 11:30 08/29/21 08:48 Insulin Regular, Human 100 Units/1 Ml SUB-Q Not Given ACHS [facility] Protocol Morphine Sulfate 2 mg 08/25/21 07:13 08/27/21 18:30 Morphine 2 Mg/1 Ml Inj IV 2 mg Q4H PRN Administration Pain, Moderate (4-6) Naloxone HCl 0.1 mg 08/25/21 07:13 Naloxone 0.4 Mg/1 Ml Inj IV Q2MIN PRN Res Rate </= 8 or 02 SAT < 92% Ondansetron HCl 4 mg 08/25/21 07:13 Ondansetron 4 Mg/2 Ml Inj IV Q4H PRN Nausea And Vomiting Sodium Chloride 10 ml 08/25/21 10:00 08/29/21 09:58 Sodium Chloride 0.9% 10 Ml Flush Syringe IV 10 ml BID PK Administration Sodium Chloride 10 ml 08/25/21 07:13 Sodium Chloride 0.9% 10 Ml Flush Syringe IV PRN PRN LINE FLUSH Nutrition/Malnutrition Assess - Dietary Evaluation Nutrition/Malnutrition Findings: Nutrition Notes Start: 08/25/21 12:28 Freq: Status: Active Protocol: Document 08/28/21 15:00 STEF (Rec: 08/28/21 15:22 STEF [id number]) Nutrition Notes Initial or Follow up Brief Note Current Diagnosis Diabetes,Hypertension Other Pertinent Diagnosis Choledocholithiasis, Liver Masses & Abscesses, Cystitis, Pneumobilia, ... Current Diet Full Liquids Diet (since D ). Height 5 ft 4 in Weight 50.802 kg Avant Body Weight (kg) 54.54 BMI 19.2 Intake Prior to Admission Poor Weight change and time frame Pt states having loss about 25 lb of body weight [employer]. No body weight change reported in 3 days. Weight Status Appropriate Subjective/Other Information RD consult for routine F/U on dietary advancement assessment . Pt advanced to PO to start tonight, no reports available yet on Pt's PO intake of meals , will assess at F/U. Swallow assessment passed on 08/26 and 08/28, acccording to Bedside Swallow Screen notes. Pt is on Room Air, O2 saturation @ 100%, according to Physical Assessment Historty notes. Pt has missing teeth, according to Physical Assessment Historty notes. Pt states having loss about 25 lb within the last few months , according to Progress notes. Pt continues in critical condition, not a candidate for Nutrition Education at the time, will assess feasibility on F/U. Percent of energy/protein needs met: Prescribed Full Liquids Diet provides for energy/protein needs (1,155 Kcal/37 g) during LOS. Nutrition Intervention Follow-Up By: 09/04/21 Additional Comments Nutrition education will be provided at F/U, if feasible. Start monitoring food tolerance, %PO intake of meals , and BM.
[2021-08-29] MEDS: LISINOPRIL 40 MG TAB PO SCH (20:25)
[2021-08-29] MEDS: amLODIPine 5 MG TAB PO SCH (20:25)
[2021-08-30] MEDS: ACETAMINOPHEN 325 MG TAB PO PRN ×2 (00:13→15:50)
[2021-08-30] MEDS: HEPARIN 5,000 UNIT/1 ML VIAL SUB-Q SCH ×3 (05:59→21:20)
[2021-08-30] MEDS: PIPERACIL/TAZOBACTA 4.5/NS 100 4.5 GM/100 ML VIAL IV SCH (05:59)
[2021-08-30 06:21] LABS: Hematocrit 24.7 % (30.3-42.9); Hemoglobin 7.9 gm/dl (10.1-14.3); Mean Corpuscular HGB Conc 32 % (30-34); Mean Corpuscular Volume 91 fl (79-97); Platelet Count 213 K/mm3 (140-440); Red Blood Count 2.71 M/mm3 (3.65-5.03); Red Cell Distribution Width 15.6 % (13.2-15.2)
[2021-08-30 06:26] LABS: Alanine Aminotransferase 93 units/L (7-56); Albumin 1.8 g/dL (3.9-5); BUN/Creatinine Ratio 16; Bilirubin,Direct 0.9 mg/dL (0-0.2); Blood Urea Nitrogen 13 mg/dL (7-17); Calcium 7.4 mg/dL (8.4-10.2); Hemolysis Index 0
[2021-08-30] MEDS: INSULIN REGULAR, HUMAN 100 UNITS/1 ML SUB-Q SCH ×4 (08:25→22:01)
--- NOTE | 2021-08-30 09:35 | Progress Note ---
<KTAYA ISAAC - Last Filed: 08/30/21 18:33> Assessment and Plan - Patient Problems (1) Abnormal computed tomography of abdomen and pelvis Current Visit: Yes Status: Acute Plan to address problem: patient reports intermitent abdominal pain Adomen/pelvis CT showed cholelithiasis with large distal common bile duct stone and moderate pneumobilia Abdominal ultrasound showed cholelithiasis, pneumobilia, multiple solid liver masses MRI abdomen numerous liver masses consistent with neoplastic or metastatic process CT-guided liver biopsy completed of 4.9 cm right hepatic lobe mass (2) Choledocholithiasis Current Visit: Yes Status: Acute Plan to address problem: continue Zoysn CBD stones US revealed cholelithiasis, pneumobilia, multiple solid liver masses GI is consulted for possible ERCP (3) Right sided abdominal pain Current Visit: Yes Status: Acute Plan to address problem: patient reports intermittent pain Continue pain management (4) Leukocytosis (leucocytosis) Current Visit: Yes Status: Acute Plan to address problem: Monitor WBC ID consulted-continue IV antibiotic Blood culture-growing gram negative [place] urine culture -pending (5) Hypertension Current Visit: Yes Status: Acute Plan to address problem: Monitor blood pressure Continue to hold anti-hypertensive (6) Diabetes Current Visit: Yes Status: Acute Plan to address problem: Monitor blood sugar with SSI History Interval history: patient seen at bedside. patient awake and oriented. She admits tobacco use for many years-don't remember how many years, but said she has quit tobacco use. She reports intermittent abdominal pain. CT showed liver mass and bile stone. GI is following- patient needs ERCP. patient denies acute distress at time of assessment. Hospitalist Physical - Constitutional Vitals: Temp Pulse Resp BP Pulse Ox 97.5 F L 87 16 108/67 100 08/30/21 05:00 08/30/21 05:00 08/30/21 05:00 08/30/21 05:00 08/30/21 05:00 General appearance: Present: mild distress - Neck Neck: Present: supple, normal ROM - Abdominal General gastrointestinal: tender - Allied Health Allied health notes reviewed: nursing HEART Score - HEART Score Troponin: Troponin T < 0.010 ng/mL (0.00-0.029) 08/25/21 03:13 Results - Labs CBC & Chem 7: 08/30/21 05:25 08/30/21 05:25 Labs: Laboratory Last Values WBC 21.5 K/mm3 (4.5-11.0) H 08/30/21 05:25 RBC 2.71 M/mm3 (3.65-5.03) L 08/30/21 05:25 Hgb 7.9 gm/dl (10.1-14.3) L 08/30/21 05:25 Hct 24.7 % (30.3-42.9) L 08/30/21 05:25 MCV 91 fl (79-97) 08/30/21 05:25 MCH 29 pg (28-32) 08/30/21 05:25 MCHC 32 % (30-34) 08/30/21 05:25 RDW 15.6 % (13.2-15.2) H 08/30/21 05:25 Plt Count 213 K/mm3 (140-440) 08/30/21 05:25 Lymph % (Auto) 10.7 % (13.4-35.0) L 08/26/21 06:38 [place] % (Auto) 10.4 % (0.0-7.3) H 08/26/21 06:38 Eos % (Auto) 0.4 % (0.0-4.3) 08/26/21 06:38 Baso % (Auto) 0.6 % (0.0-1.8) 08/26/21 06:38 Lymph # (Auto) 0.8 K/mm3 (1.2-5.4) L 08/26/21 06:38 [place] # (Auto) 0.8 K/mm3 (0.0-0.8) 08/26/21 06:38 Eos # (Auto) 0.0 K/mm3 (0.0-0.4) 08/26/21 06:38 Baso # (Auto) 0.0 K/mm3 (0.0-0.1) 08/26/21 06:38 Add Manual Diff Complete 08/29/21 01:23 Total Counted 100 08/29/21 01:23 Seg Neutrophils % Disease Control Inspector 08/29/21 01:23 Seg Neuts % (Manual) 99.0 % (40.0-70.0) H 08/29/21 01:23 Band Neutrophils % 0 % 08/29/21 01:23 Lymphocytes % (Manual) 1.0 % (13.4-35.0) L 08/29/21 01:23 Reactive Lymphs % (Man) 0 % 08/29/21 01:23 Monocytes % (Manual) 0 % (0.0-7.3) 08/29/21 01:23 Eosinophils % (Manual) 0 % (0.0-4.3) 08/29/21 01:23 Basophils % (Manual) 0 % (0.0-1.8) 08/29/21 01:23 Metamyelocytes % 0 % 08/29/21 01:23 Myelocytes % 0 % 08/29/21 01:23 Promyelocytes % 0 % 08/29/21 01:23 Blast Cells % 0 % 08/29/21 01:23 Nucleated RBC % 1.0 % (0.0-0.9) H 08/29/21 01:23 Seg Neutrophils # 6.0 K/mm3 (1.8-7.7) 08/26/21 06:38 Seg Neutrophils # Man 21.3 K/mm3 (1.8-7.7) H 08/29/21 01:23 Band Neutrophils # 0.0 K/mm3 08/29/21 01:23 Lymphocytes # (Manual) 0.2 K/mm3 (1.2-5.4) L 08/29/21 01:23 Abs React Lymphs (Man) 0.0 K/mm3 08/29/21 01:23 Monocytes # (Manual) 0.0 K/mm3 (0.0-0.8) 08/29/21 01:23 Eosinophils # (Manual) 0.0 K/mm3 (0.0-0.4) 08/29/21 01:23 Basophils # (Manual) 0.0 K/mm3 (0.0-0.1) 08/29/21 01:23 Metamyelocytes # 0.0 K/mm3 08/29/21 01:23 Myelocytes # 0.0 K/mm3 08/29/21 01:23 Promyelocytes # 0.0 K/mm3 08/29/21 01:23 Blast Cells # 0.0 K/mm3 08/29/21 01:23 WBC Morphology Not Reportable 08/29/21 01:23 Hypersegmented Neuts Not Reportable 08/29/21 01:23 Hyposegmented Neuts Not Reportable 08/29/21 01:23 Hypogranular Neuts Not Reportable 08/29/21 01:23 Smudge Cells Not Reportable 08/29/21 01:23 Toxic Granulation Not Reportable 08/29/21 01:23 Toxic Vacuolation Not Reportable 08/29/21 01:23 Dohle Bodies Not Reportable 08/29/21 01:23 Pelger-Huet Anomaly Not Reportable 08/29/21 01:23 Sam Rods Not Reportable 08/29/21 01:23 Platelet Estimate Consistent w auto 08/29/21 01:23 Clumped Platelets Not Reportable 08/29/21 01:23 Plt Clumps, EDTA Not Reportable 08/29/21 01:23 Large Platelets Not Reportable 08/29/21 01:23 Giant Platelets Not Reportable 08/29/21 01:23 Platelet Satelliting Not Reportable 08/29/21 01:23 Plt Morphology Comment Not Reportable 08/29/21 01:23 RBC Morphology Not Reportable 08/29/21 01:23 Dimorphic RBCs Not Reportable 08/29/21 01:23 Polychromasia Not Reportable 08/29/21 01:23 Hypochromasia Not Reportable 08/29/21 01:23 Poikilocytosis Not Reportable 08/29/21 01:23 Anisocytosis 1+ 08/29/21 01:23 Microcytosis Not Reportable 08/29/21 01:23 Macrocytosis Not Reportable 08/29/21 01:23 Spherocytes Not Reportable 08/29/21 01:23 Pappenheimer Bodies Not Reportable 08/29/21 01:23 Sickle Cells Not Reportable 08/29/21 01:23 Target Cells Not Reportable 08/29/21 01:23 Tear Drop Cells Not Reportable 08/29/21 01:23 Ovalocytes Not Reportable 08/29/21 01:23 Helmet Cells Not Reportable 08/29/21 01:23 [place] Possession Bodies Not Reportable 08/29/21 01:23 [place] Rings Not Reportable 08/29/21 01:23 Ellie Cells Not Reportable 08/29/21 01:23 Bite Cells Not Reportable 08/29/21 01:23 Crenated Cell Not Reportable 08/29/21 01:23 Elliptocytes Not Reportable 08/29/21 01:23 Acanthocytes (Spur) Not Reportable 08/29/21 01:23 Rouleaux Not Reportable 08/29/21 01:23 Hemoglobin C Crystals Not Reportable 08/29/21 01:23 Schistocytes Not Reportable 08/29/21 01:23 Malaria parasites Not Reportable 08/29/21 01:23 [place] Bodies Not Reportable 08/29/21 01:23 Hem Pathologist Commnt No 08/29/21 01:23 PT 13.8 Sec. (12.2-14.9) 08/25/21 05:12 INR 0.96 (0.87-1.13) 08/25/21 05:12 APTT 30.3 Sec. (24.2-36.6) 08/25/21 05:12 Sodium 140 mmol/L (137-145) 08/30/21 05:25 Potassium 3.4 mmol/L (3.6-5.0) L 08/30/21 05:25 Chloride 109.1 mmol/L (98-107) H 08/30/21 05:25 Carbon Dioxide 20 mmol/L (22-30) L 08/30/21 05:25 Anion Gap 14 mmol/L 08/30/21 05:25 BUN 13 mg/dL (7-17) 08/30/21 05:25 Creatinine 0.8 mg/dL (0.6-1.2) 08/30/21 05:25 Estimated GFR > 60 ml/min 08/30/21 05:25 BUN/Creatinine Ratio 16 % 08/30/21 05:25 Glucose 103 mg/dL (65-100) H 08/30/21 05:25 POC Glucose 94 mg/dL (70-105) 08/30/21 08:02 Lactic Acid 1.50 mmol/L (0.7-2.0) 08/25/21 05:29 Calcium 7.4 mg/dL (8.4-10.2) L 08/30/21 05:25 Phosphorus 1.90 mg/dL (2.5-4.5) L 08/30/21 05:25 Magnesium 1.30 mg/dL (1.7-2.3) L 08/30/21 05:25 Iron 32 ug/dL (37-170) L 08/26/21 06:38 TIBC 135 mcg/dL (250-450) L 08/26/21 06:38 Total Bilirubin 1.00 mg/dL (0.1-1.2) 08/30/21 05:25 Direct Bilirubin 0.9 mg/dL (0-0.2) H 08/30/21 05:25 Indirect Bilirubin 0.1 mg/dL 08/30/21 05:25 AST 138 units/L (5-40) H 08/30/21 05:25 ALT 93 units/L (7-56) H 08/30/21 05:25 Alkaline Phosphatase 525 units/L (35-129) H 08/30/21 05:25 Total Creatine Kinase 51 units/L (30-135) 08/25/21 03:13 Troponin T < 0.010 ng/mL (0.00-0.029) 08/25/21 03:13 Total Protein 4.7 g/dL (6.3-8.2) L 08/30/21 05:25 Albumin 1.8 g/dL (3.9-5) L 08/30/21 05:25 Albumin/Globulin Ratio 0.6 % 08/30/21 05:25 Carcinoembryonic Ag 20.8 ng/mL (0.0-2.4) H 08/26/21 06:38 CA 19-9 Antigen 5 U/mL (<34) 08/26/21 06:38 TSH 2.440 mlU/mL (0.270-4.200) 08/25/21 03:13 Urine Color Yellow (Yellow) 08/26/21 05:09 Urine Turbidity Clear (Clear) 08/26/21 05:09 Urine pH 5.0 (5.0-7.0) 08/26/21 05:09 Ur Specific [place] 1.020 (1.003-1.030) 08/26/21 05:09 Urine Protein <15 mg/dl mg/dL (Negative) 08/26/21 05:09 Urine Glucose (UA) >=500 mg/dL (Negative) 08/26/21 05:09 Urine Ketones 20 mg/dL (Negative) 08/26/21 05:09 Urine Blood Mod (Negative) 08/26/21 05:09 Urine Nitrite Neg (Negative) 08/26/21 05:09 Urine Bilirubin Neg (Negative) 08/26/21 05:09 Urine Urobilinogen < 2.0 mg/dL (<2.0) 08/26/21 05:09 Ur Leukocyte Esterase Mod (Negative) 08/26/21 05:09 Urine WBC (Auto) 33.0 /HPF (0.0-6.0) H 08/26/21 05:09 Urine RBC (Auto) 6.0 /HPF (0.0-6.0) 08/26/21 05:09 U Epithel Cells (Auto) 3.0 /HPF (0-13.0) 08/26/21 05:09 Urine Bacteria (Auto) 1+ /HPF (Negative) 08/26/21 05:09 Calcium Oxalate Crystal Few 08/26/21 05:09 Urine Mucus 2+ /HPF 08/26/21 05:09 Blood Type O POSITIVE 08/29/21 04:34 Antibody Screen Negative 08/29/21 04:34 Microbiology: Microbiology 08/25/21 05:29 Peripheral/Venous Blood Culture - Final NO GROWTH AFTER 5 DAYS 08/29/21 10:26 Peripheral/Venous Blood Culture - Preliminary Gram Negative [place] 08/29/21 10:26 Peripheral/Venous Blood Culture - Preliminary Gram Negative [place] 08/25/21 06:02 Peripheral/Venous Blood Culture - Preliminary NO GROWTH AFTER 4 DAYS Pham/IV: Voiding Method External Female Catheter Active Medications - Current Medications Current Medications: Generic Name Dose Route Start Last Admin Trade Name Freq PRN Reason Stop Dose Admin Acetaminophen 650 mg 08/25/21 07:13 08/30/21 00:13 Acetaminophen 325 Mg Tab PO 650 mg Q4H PRN Administration Pain MILD(1-3)/Fever >100.5/[place] Albuterol 2.5 mg 08/25/21 07:13 Albuterol 2.5 Mg/3 Ml Nebu IH Q4HRT PRN Shortness Of Breath Dextrose 50 ml 08/25/21 08:23 Dextrose 50% In Water (25gm) 50 Ml Syringe IV Q30MIN PRN Hypoglycemia Protocol Famotidine 20 mg 08/29/21 10:00 08/29/21 09:58 Famotidine 20 Mg Tab PO 20 mg DAILY PK Administration Heparin Sodium (Porcine) 5,000 unit 08/25/21 14:00 08/30/21 05:59 Heparin 5,000 Unit/1 Ml Vial SUB-Q 5,000 unit Q8HR [facility] Administration Piperacillin Sod/Tazobactam Sod 3.375 gm in 50 mls @ 100 mls/hr 08/30/21 14:00 Zosyn/Ns 3.375gm/50ml IV Q8HR [facility] Protocol Insulin Human Regular 0 units 08/25/21 11:30 08/30/21 08:25 Insulin Regular, Human 100 Units/1 Ml SUB-Q Not Given ACHS [facility] Protocol Morphine Sulfate 2 mg 08/25/21 07:13 08/27/21 18:30 Morphine 2 Mg/1 Ml Inj IV 2 mg Q4H PRN Administration Pain, Moderate (4-6) Naloxone HCl 0.1 mg 08/25/21 07:13 Naloxone 0.4 Mg/1 Ml Inj IV Q2MIN PRN Res Rate </= 8 or 02 SAT < 92% Ondansetron HCl 4 mg 08/25/21 07:13 Ondansetron 4 Mg/2 Ml Inj IV Q4H PRN Nausea And Vomiting Sodium Chloride 10 ml 08/25/21 10:00 08/29/21 21:22 Sodium Chloride 0.9% 10 Ml Flush Syringe IV 10 ml BID PK Administration Sodium Chloride 10 ml 08/25/21 07:13 Sodium Chloride 0.9% 10 Ml Flush Syringe IV PRN PRN LINE FLUSH Nutrition/Malnutrition Assess - Dietary Evaluation Nutrition/Malnutrition Findings: Nutrition Notes Start: 08/25/21 12:28 Freq: Status: Active Protocol: Document 08/28/21 15:00 STEF (Rec: 08/28/21 15:22 STEF [id number]) Nutrition Notes Initial or Follow up Brief Note Current Diagnosis Diabetes,Hypertension Other Pertinent Diagnosis Choledocholithiasis, Liver Masses & Abscesses, Cystitis, Pneumobilia, ... Current Diet Full Liquids Diet (since D ). Height 5 ft 4 in Weight 50.802 kg [place] Body Weight (kg) 54.54 BMI 19.2 Intake Prior to Admission Poor Weight change and time frame Pt states having loss about 25 lb of body weight [employer]. No body weight change reported in 3 days. Weight Status Appropriate Subjective/Other Information RD consult for routine F/U on dietary advancement assessment . Pt advanced to PO to start tonight, no reports available yet on Pt's PO intake of meals , will assess at F/U. Swallow assessment passed on 08/26 and 08/28, acccording to Bedside Swallow Screen notes. Pt is on Room Air, O2 saturation @ 100%, according to Physical Assessment Historty notes. Pt has missing teeth, according to Physical Assessment Historty notes. Pt states having loss about 25 lb within the last few months , according to Progress notes. Pt continues in critical condition, not a candidate for Nutrition Education at the time, will assess feasibility on F/U. Percent of energy/protein needs met: Prescribed Full Liquids Diet provides for energy/protein needs (1,155 Kcal/37 g) during LOS. Nutrition Intervention Follow-Up By: 09/04/21 Additional Comments Nutrition education will be provided at F/U, if feasible. Start monitoring food tolerance, %PO intake of meals , and BM. <REGLA MARISCAL - Last Filed: 08/30/21 20:08> Assessment and Plan Assessment and plan: I saw and evaluated the patient. I agree with the findings and the plan of care as documented in the Nurse Practitioner's~note, with the following corrections and additions. Hospitalist Physical - Constitutional Vitals: Temp Pulse Resp BP Pulse Ox 97.5 F L 87 16 108/67 97 08/30/21 05:00 08/30/21 05:00 08/30/21 05:00 08/30/21 05:00 08/30/21 10:00 HEART Score - HEART Score Troponin: Troponin T < 0.010 ng/mL (0.00-0.029) 08/25/21 03:13 Results - Labs CBC & Chem 7: 08/30/21 05:25 08/30/21 05:25 Labs: Laboratory Last Values WBC 21.5 K/mm3 (4.5-11.0) H 08/30/21 05:25 RBC 2.71 M/mm3 (3.65-5.03) L 08/30/21 05:25 Hgb 7.9 gm/dl (10.1-14.3) L 08/30/21 05:25 Hct 24.7 % (30.3-42.9) L 08/30/21 05:25 MCV 91 fl (79-97) 08/30/21 05:25 MCH 29 pg (28-32) 08/30/21 05:25 MCHC 32 % (30-34) 08/30/21 05:25 RDW 15.6 % (13.2-15.2) H 08/30/21 05:25 Plt Count 213 K/mm3 (140-440) 08/30/21 05:25 Lymph % (Auto) 10.7 % (13.4-35.0) L 08/26/21 06:38 [place] % (Auto) 10.4 % (0.0-7.3) H 08/26/21 06:38 Eos % (Auto) 0.4 % (0.0-4.3) 08/26/21 06:38 Baso % (Auto) 0.6 % (0.0-1.8) 08/26/21 06:38 Lymph # (Auto) 0.8 K/mm3 (1.2-5.4) L 08/26/21 06:38 [place] # (Auto) 0.8 K/mm3 (0.0-0.8) 08/26/21 06:38 Eos # (Auto) 0.0 K/mm3 (0.0-0.4) 08/26/21 06:38 Baso # (Auto) 0.0 K/mm3 (0.0-0.1) 08/26/21 06:38 Add Manual Diff Complete 08/29/21 01:23 Total Counted 100 08/29/21 01:23 Seg Neutrophils % Disease Control Inspector 08/29/21 01:23 Seg Neuts % (Manual) 99.0 % (40.0-70.0) H 08/29/21 01:23 Band Neutrophils % 0 % 08/29/21 01:23 Lymphocytes % (Manual) 1.0 % (13.4-35.0) L 08/29/21 01:23 Reactive Lymphs % (Man) 0 % 08/29/21 01:23 Monocytes % (Manual) 0 % (0.0-7.3) 08/29/21 01:23 Eosinophils % (Manual) 0 % (0.0-4.3) 08/29/21 01:23 Basophils % (Manual) 0 % (0.0-1.8) 08/29/21 01:23 Metamyelocytes % 0 % 08/29/21 01:23 Myelocytes % 0 % 08/29/21 01:23 Promyelocytes % 0 % 08/29/21 01:23 Blast Cells % 0 % 08/29/21 01:23 Nucleated RBC % 1.0 % (0.0-0.9) H 08/29/21 01:23 Seg Neutrophils # 6.0 K/mm3 (1.8-7.7) 08/26/21 06:38 Seg Neutrophils # Man 21.3 K/mm3 (1.8-7.7) H 08/29/21 01:23 Band Neutrophils # 0.0 K/mm3 08/29/21 01:23 Lymphocytes # (Manual) 0.2 K/mm3 (1.2-5.4) L 08/29/21 01:23 Abs React Lymphs (Man) 0.0 K/mm3 08/29/21 01:23 Monocytes # (Manual) 0.0 K/mm3 (0.0-0.8) 08/29/21 01:23 Eosinophils # (Manual) 0.0 K/mm3 (0.0-0.4) 08/29/21 01:23 Basophils # (Manual) 0.0 K/mm3 (0.0-0.1) 08/29/21 01:23 Metamyelocytes # 0.0 K/mm3 08/29/21 01:23 Myelocytes # 0.0 K/mm3 08/29/21 01:23 Promyelocytes # 0.0 K/mm3 08/29/21 01:23 Blast Cells # 0.0 K/mm3 08/29/21 01:23 WBC Morphology Not Reportable 08/29/21 01:23 Hypersegmented Neuts Not Reportable 08/29/21 01:23 Hyposegmented Neuts Not Reportable 08/29/21 01:23 Hypogranular Neuts Not Reportable 08/29/21 01:23 Smudge Cells Not Reportable 08/29/21 01:23 Toxic Granulation Not Reportable 08/29/21 01:23 Toxic Vacuolation Not Reportable 08/29/21 01:23 Dohle Bodies Not Reportable 08/29/21 01:23 Pelger-Huet Anomaly Not Reportable 08/29/21 01:23 Sam Rods Not Reportable 08/29/21 01:23 Platelet Estimate Consistent w auto 08/29/21 01:23 Clumped Platelets Not Reportable 08/29/21 01:23 Plt Clumps, EDTA Not Reportable 08/29/21 01:23 Large Platelets Not Reportable 08/29/21 01:23 Giant Platelets Not Reportable 08/29/21 01:23 Platelet Satelliting Not Reportable 08/29/21 01:23 Plt Morphology Comment Not Reportable 08/29/21 01:23 RBC Morphology Not Reportable 08/29/21 01:23 Dimorphic RBCs Not Reportable 08/29/21 01:23 Polychromasia Not Reportable 08/29/21 01:23 Hypochromasia Not Reportable 08/29/21 01:23 Poikilocytosis Not Reportable 08/29/21 01:23 Anisocytosis 1+ 08/29/21 01:23 Microcytosis Not Reportable 08/29/21 01:23 Macrocytosis Not Reportable 08/29/21 01:23 Spherocytes Not Reportable 08/29/21 01:23 Pappenheimer Bodies Not Reportable 08/29/21 01:23 Sickle Cells Not Reportable 08/29/21 01:23 Target Cells Not Reportable 08/29/21 01:23 Tear Drop Cells Not Reportable 08/29/21 01:23 Ovalocytes Not Reportable 08/29/21 01:23 Helmet Cells Not Reportable 08/29/21 01:23 [place] Possession Bodies Not Reportable 08/29/21 01:23 [place] Rings Not Reportable 08/29/21 01:23 Ellie Cells Not Reportable 08/29/21 01:23 Bite Cells Not Reportable 08/29/21 01:23 Crenated Cell Not Reportable 08/29/21 01:23 Elliptocytes Not Reportable 08/29/21 01:23 Acanthocytes (Spur) Not Reportable 08/29/21 01:23 Rouleaux Not Reportable 08/29/21 01:23 Hemoglobin C Crystals Not Reportable 08/29/21 01:23 Schistocytes Not Reportable 08/29/21 01:23 Malaria parasites Not Reportable 08/29/21 01:23 [place] Bodies Not Reportable 08/29/21 01:23 Hem Pathologist Commnt No 08/29/21 01:23 PT 13.8 Sec. (12.2-14.9) 08/25/21 05:12 INR 0.96 (0.87-1.13) 08/25/21 05:12 APTT 30.3 Sec. (24.2-36.6) 08/25/21 05:12 Sodium 140 mmol/L (137-145) 08/30/21 05:25 Potassium 3.4 mmol/L (3.6-5.0) L 08/30/21 05:25 Chloride 109.1 mmol/L (98-107) H 08/30/21 05:25 Carbon Dioxide 20 mmol/L (22-30) L 08/30/21 05:25 Anion Gap 14 mmol/L 08/30/21 05:25 BUN 13 mg/dL (7-17) 08/30/21 05:25 Creatinine 0.8 mg/dL (0.6-1.2) 08/30/21 05:25 Estimated GFR > 60 ml/min 08/30/21 05:25 BUN/Creatinine Ratio 16 % 08/30/21 05:25 Glucose 103 mg/dL (65-100) H 08/30/21 05:25 POC Glucose 92 mg/dL (70-105) 08/30/21 17:42 Lactic Acid 1.50 mmol/L (0.7-2.0) 08/25/21 05:29 Calcium 7.4 mg/dL (8.4-10.2) L 08/30/21 05:25 Phosphorus 1.90 mg/dL (2.5-4.5) L 08/30/21 05:25 Magnesium 1.30 mg/dL (1.7-2.3) L 08/30/21 05:25 Iron 32 ug/dL (37-170) L 08/26/21 06:38 TIBC 135 mcg/dL (250-450) L 08/26/21 06:38 Total Bilirubin 1.00 mg/dL (0.1-1.2) 08/30/21 05:25 Direct Bilirubin 0.9 mg/dL (0-0.2) H 08/30/21 05:25 Indirect Bilirubin 0.1 mg/dL 08/30/21 05:25 AST 138 units/L (5-40) H 08/30/21 05:25 ALT 93 units/L (7-56) H 08/30/21 05:25 Alkaline Phosphatase 525 units/L (35-129) H 08/30/21 05:25 Total Creatine Kinase 51 units/L (30-135) 08/25/21 03:13 Troponin T < 0.010 ng/mL (0.00-0.029) 08/25/21 03:13 Total Protein 4.7 g/dL (6.3-8.2) L 08/30/21 05:25 Albumin 1.8 g/dL (3.9-5) L 08/30/21 05:25 Albumin/Globulin Ratio 0.6 % 08/30/21 05:25 Carcinoembryonic Ag 20.8 ng/mL (0.0-2.4) H 08/26/21 06:38 CA 19-9 Antigen 5 U/mL (<34) 08/26/21 06:38 TSH 2.440 mlU/mL (0.270-4.200) 08/25/21 03:13 Urine Color Yellow (Yellow) 08/26/21 05:09 Urine Turbidity Clear (Clear) 08/26/21 05:09 Urine pH 5.0 (5.0-7.0) 08/26/21 05:09 Ur Specific [place] 1.020 (1.003-1.030) 08/26/21 05:09 Urine Protein <15 mg/dl mg/dL (Negative) 08/26/21 05:09 Urine Glucose (UA) >=500 mg/dL (Negative) 08/26/21 05:09 Urine Ketones 20 mg/dL (Negative) 08/26/21 05:09 Urine Blood Mod (Negative) 08/26/21 05:09 Urine Nitrite Neg (Negative) 08/26/21 05:09 Urine Bilirubin Neg (Negative) 08/26/21 05:09 Urine Urobilinogen < 2.0 mg/dL (<2.0) 08/26/21 05:09 Ur Leukocyte Esterase Mod (Negative) 08/26/21 05:09 Urine WBC (Auto) 33.0 /HPF (0.0-6.0) H 08/26/21 05:09 Urine RBC (Auto) 6.0 /HPF (0.0-6.0) 08/26/21 05:09 U Epithel Cells (Auto) 3.0 /HPF (0-13.0) 08/26/21 05:09 Urine Bacteria (Auto) 1+ /HPF (Negative) 08/26/21 05:09 Calcium Oxalate Crystal Few 08/26/21 05:09 Urine Mucus 2+ /HPF 08/26/21 05:09 Blood Type O POSITIVE 08/29/21 04:34 Antibody Screen Negative 08/29/21 04:34 Microbiology: Microbiology 08/25/21 06:02 Peripheral/Venous Blood Culture - Final NO GROWTH AFTER 5 DAYS 08/25/21 05:29 Peripheral/Venous Blood Culture - Final NO GROWTH AFTER 5 DAYS 08/29/21 10:26 Peripheral/Venous Blood Culture - Preliminary Gram Negative [place] 08/29/21 10:26 Peripheral/Venous Blood Culture - Preliminary Gram Negative [place] Pham/IV: Voiding Method External Female Catheter Active Medications - Current Medications Current Medications: Generic Name Dose Route Start Last Admin Trade Name Freq PRN Reason Stop Dose Admin Acetaminophen 650 mg 08/25/21 07:13 08/30/21 15:50 Acetaminophen 325 Mg Tab PO 650 mg Q4H PRN Administration Pain MILD(1-3)/Fever >100.5/[place] Albuterol 2.5 mg 08/25/21 07:13 Albuterol 2.5 Mg/3 Ml Nebu IH Q4HRT PRN Shortness Of Breath Dextrose 50 ml 08/25/21 08:23 Dextrose 50% In Water (25gm) 50 Ml Syringe IV Q30MIN PRN Hypoglycemia Protocol Famotidine 20 mg 08/29/21 10:00 08/30/21 12:11 Famotidine 20 Mg Tab PO 20 mg DAILY PK Administration Heparin Sodium (Porcine) 5,000 unit 08/25/21 14:00 08/30/21 15:45 Heparin 5,000 Unit/1 Ml Vial SUB-Q 5,000 unit Q8HR PK Administration Piperacillin Sod/Tazobactam Sod 3.375 gm in 50 mls @ 100 mls/hr 08/30/21 14:00 08/30/21 15:46 Zosyn/Ns 3.375gm/50ml IV 100 mls/hr Q8HR PK Administration Protocol Insulin Human Regular 0 units 08/25/21 11:30 08/30/21 18:01 Insulin Regular, Human 100 Units/1 Ml SUB-Q Not Given ACHS PK Protocol Morphine Sulfate 2 mg 08/25/21 07:13 08/27/21 18:30 Morphine 2 Mg/1 Ml Inj IV 2 mg Q4H PRN Administration Pain, Moderate (4-6) Naloxone HCl 0.1 mg 08/25/21 07:13 Naloxone 0.4 Mg/1 Ml Inj IV Q2MIN PRN Res Rate </= 8 or 02 SAT < 92% Ondansetron HCl 4 mg 08/25/21 07:13 Ondansetron 4 Mg/2 Ml Inj IV Q4H PRN Nausea And Vomiting Sodium Chloride 10 ml 08/25/21 10:00 08/30/21 12:11 Sodium Chloride 0.9% 10 Ml Flush Syringe IV 10 ml BID PK Administration Sodium Chloride 10 ml 08/25/21 07:13 Sodium Chloride 0.9% 10 Ml Flush Syringe IV PRN PRN LINE FLUSH Nutrition/Malnutrition Assess - Dietary Evaluation Nutrition/Malnutrition Findings: Nutrition Notes Start: 08/25/21 12:28 Freq: Status: Active Protocol: Document 08/28/21 15:00 STEF (Rec: 08/28/21 15:22 STEF [id number]) Nutrition Notes Initial or Follow up Brief Note Current Diagnosis Diabetes,Hypertension Other Pertinent Diagnosis Choledocholithiasis, Liver Masses & Abscesses, Cystitis, Pneumobilia, ... Current Diet Full Liquids Diet (since D ). Height 5 ft 4 in Weight 50.802 kg [place] Body Weight (kg) 54.54 BMI 19.2 Intake Prior to Admission Poor Weight change and time frame Pt states having loss about 25 lb of body weight [employer]. No body weight change reported in 3 days. Weight Status Appropriate Subjective/Other Information RD consult for routine F/U on dietary advancement assessment . Pt advanced to PO to start tonight, no reports available yet on Pt's PO intake of meals , will assess at F/U. Swallow assessment passed on 08/26 and 08/28, acccording to Bedside Swallow Screen notes. Pt is on Room Air, O2 saturation @ 100%, according to Physical Assessment Historty notes. Pt has missing teeth, according to Physical Assessment Historty notes. Pt states having loss about 25 lb within the last few months , according to Progress notes. Pt continues in critical condition, not a candidate for Nutrition Education at the time, will assess feasibility on F/U. Percent of energy/protein needs met: Prescribed Full Liquids Diet provides for energy/protein needs (1,155 Kcal/37 g) during LOS. Nutrition Intervention Follow-Up By: 09/04/21 Additional Comments Nutrition education will be provided at F/U, if feasible. Start monitoring food tolerance, %PO intake of meals , and BM.
--- NOTE | 2021-08-30 09:46 | Gastroenterology Progress Note ---
<NAEL MULLIGAN - Last Filed: 08/30/21 09:50> Assessment and Plan 1. Possible cholangitis - continue Zoysn - WBC 21.5, continue to monitor - IR (Dr. Brunson) has been consulted for possible PTC placement 2. CBD stones - US 08/25 revealed cholelithiasis, pneumobilia, multiple solid liver masses - CT 08/25 revealed choledocolithiasis w/ large CBD stone - Will likely need ERCP 3. Liver masses - PTH cytology: malignant calls consistent w/ carcinoma - Will likely need to transfer pt to higher level care Subjective Date of service: 08/30/21 Principal diagnosis: abd pain, liver lesions Interval history: Pt seen and examined. Laying comfortably in bed. No new complaints overnight. Objective - Constitutional Vitals: Temp Pulse Resp BP Pulse Ox 97.5 F L 87 16 108/67 100 08/30/21 05:00 08/30/21 05:00 08/30/21 05:00 08/30/21 05:00 08/30/21 05:00 General appearance: no acute distress - Labs CBC & Chem 7: 08/30/21 05:25 08/30/21 05:25 Labs: Laboratory Results - last 24 hr 08/30/21 08/30/21 08/30/21 05:25 05:25 08:02 WBC 21.5 H RBC 2.71 L Hgb 7.9 L Hct 24.7 L MCV 91 MCH 29 MCHC 32 RDW 15.6 H Plt Count 213 Sodium 140 Potassium 3.4 L Chloride 109.1 H Carbon Dioxide 20 L Anion Gap 14 BUN 13 Creatinine 0.8 Estimated GFR > 60 BUN/Creatinine Ratio 16 Glucose 103 H POC Glucose 94 Calcium 7.4 L Phosphorus 1.90 L Magnesium 1.30 L Total Bilirubin 1.00 Direct Bilirubin 0.9 H Indirect Bilirubin 0.1 AST 138 H ALT 93 H Alkaline Phosphatase 525 H Total Protein 4.7 L Albumin 1.8 L Albumin/Globulin Ratio 0.6 <ALBERTO ORTIZ - Last Filed: 08/30/21 11:39> Assessment and Plan Patient seen and examined. I spent over 50% of time on management and care of the patient. patient with sepsis/GNR's, ? cholangitis, cont broad spectrum abx. HD stable. Discussed with IR about PTC drain for temporary biliary drainage. f/u path from recent liver mass biopsy. Objective - Constitutional Vitals: Temp Pulse Resp BP Pulse Ox 97.5 F L 87 16 108/67 97 08/30/21 05:00 08/30/21 05:00 08/30/21 05:00 08/30/21 05:00 08/30/21 10:00 - Labs CBC & Chem 7: 08/30/21 05:25 08/30/21 05:25 Labs: Laboratory Results - last 24 hr 08/30/21 08/30/21 08/30/21 05:25 05:25 08:02 WBC 21.5 H RBC 2.71 L Hgb 7.9 L Hct 24.7 L MCV 91 MCH 29 MCHC 32 RDW 15.6 H Plt Count 213 Sodium 140 Potassium 3.4 L Chloride 109.1 H Carbon Dioxide 20 L Anion Gap 14 BUN 13 Creatinine 0.8 Estimated GFR > 60 BUN/Creatinine Ratio 16 Glucose 103 H POC Glucose 94 Calcium 7.4 L Phosphorus 1.90 L Magnesium 1.30 L Total Bilirubin 1.00 Direct Bilirubin 0.9 H Indirect Bilirubin 0.1 AST 138 H ALT 93 H Alkaline Phosphatase 525 H Total Protein 4.7 L Albumin 1.8 L Albumin/Globulin Ratio 0.6
[2021-08-30] MEDS ORDERED: LISINOPRIL 10 MG TAB PO SCH (10:00)
[2021-08-30] MEDS ORDERED: amLODIPine 5 MG TAB PO SCH (10:00)
[2021-08-30] MEDS ORDERED: POTASSIUM CHLORIDE ER 20 MEQ TAB PO NR (10:00)
[2021-08-30] MEDS ORDERED: SODIUM PHOSPHATE 30 MMOL in SODIUM CHLORIDE 0.9% 500 ML 500 ML IV ONE (10:30)
[2021-08-30] MEDS ORDERED: MAGNESIUM SULFATE 3 GM in SODIUM CHLORIDE 0.9% 100 ML IV ONE (10:30)
[2021-08-30] MEDS: FAMOTIDINE 20 MG TAB PO SCH (12:11)
[2021-08-30] MEDS: PIPERACILLIN/TAZOBACTAM 3.375 3.375 GM/50 ML BAG IV SCH ×2 (15:46→22:45)
--- NOTE | 2021-08-30 17:38 | Consultation ---
History of Present Illness - Reason for Consult Consult date: 08/30/21 - History of Present Illness 76-year-old female past medical history hypertension, diabetes presented to hospital complaining of dizziness. This is associated with right-sided abdominal pain which began approximately a month prior to admission. The dizziness began a week prior to admission. Her pain usually occurs in the evening and at night. Afebrile since admission with a white count now 21.5. Currently on Zosyn. Blood cultures with gram-negative rods. Imaging personally reviewed: CT abdomen pelvis: Possible neoplasm the cystic duct area. Pneumobilia in the left buttock lobe possible cholangitis. Multiple hepatic masses. Review of Systems: Bold if positive, otherwise negative General: fevers, chills, rigors HEENT: visual disturbance, diplopia, eye pain Respiratory: cough, sputum, hemoptysis, shortness of breath Cardiovascular: chest pain, syncope Gastrointestinal: nausea, vomiting, diarrhea, abdominal pain Genitourinary: dysuria, hematuria, flank pain Musculoskeletal: neck pain, back pain, joint pain, edema Neurologic: headaches, seizures Hematologic: easy bruising or bleeding Endocrine: night sweats, acute weight loss Skin: rash, jaundice, redness Psychiatric: suicidal, homicidal ideation and review Past History Past Medical History: diabetes, hypertension Past Surgical History: No surgical history Social history: alcohol abuse (Quit over 20 years ago) Family history: hypertension Medications and Allergies Allergies Allergy/AdvReac Type Severity Reaction Status Date / Time No Known Allergies Allergy Verified 08/28/21 09:47 Home Medications Medication Instructions Recorded Confirmed Last Taken Type Amlodipine Besylate/Benazepril 1 cap PO QDAY 08/25/21 08/28/21 1 Day Ago History [Amlodipine-Benazepril 5-40 mg] ~08/24/21 Active Meds: Active Medications Acetaminophen (Acetaminophen 325 Mg Tab) 650 mg PO Q4H PRN PRN Reason: Pain MILD(1-3)/Fever >100.5/[place] Last Admin: 08/30/21 15:50 Dose: 650 mg Albuterol (Albuterol 2.5 Mg/3 Ml Nebu) 2.5 mg IH Q4HRT PRN PRN Reason: Shortness Of Breath Dextrose (Dextrose 50% In Water (25gm) 50 Ml Syringe) 50 ml IV Q30MIN PRN; Protocol PRN Reason: Hypoglycemia Famotidine (Famotidine 20 Mg Tab) 20 mg PO DAILY [facility] Last Admin: 08/30/21 12:11 Dose: 20 mg Heparin Sodium (Porcine) (Heparin 5,000 Unit/1 Ml Vial) 5,000 unit SUB-Q Q8HR [facility] Last Admin: 08/30/21 15:45 Dose: 5,000 unit Piperacillin Sod/Tazobactam Sod (Zosyn/Ns 3.375gm/50ml) 3.375 gm in 50 mls @ 100 mls/hr IV Q8HR [facility]; Protocol Last Admin: 08/30/21 15:46 Dose: 100 mls/hr Insulin Human Regular (Insulin Regular, Human 100 Units/1 Ml) 0 units SUB-Q ACHS [facility]; Protocol Last Admin: 08/30/21 13:47 Dose: Not Given Morphine Sulfate (Morphine 2 Mg/1 Ml Inj) 2 mg IV Q4H PRN PRN Reason: Pain, Moderate (4-6) Last Admin: 08/27/21 18:30 Dose: 2 mg Naloxone HCl (Naloxone 0.4 Mg/1 Ml Inj) 0.1 mg IV Q2MIN PRN PRN Reason: Res Rate </= 8 or 02 SAT < 92% Ondansetron HCl (Ondansetron 4 Mg/2 Ml Inj) 4 mg IV Q4H PRN PRN Reason: Nausea And Vomiting Sodium Chloride (Sodium Chloride 0.9% 10 Ml Flush Syringe) 10 ml IV BID [facility] Last Admin: 08/30/21 12:11 Dose: 10 ml Sodium Chloride (Sodium Chloride 0.9% 10 Ml Flush Syringe) 10 ml IV PRN PRN PRN Reason: LINE FLUSH Physical Examination - Physical Exam Narrative exam: Physical Exam: Constitutional: Alert, cooperative. No acute distress Head, Ears, Nose: Normocephalic, atraumatic. External ears, nose normal Eyes: Conjunctivae/corneas clear. No icterus. No ptosis. Neck: Supple, no meningeal signs Oral: dentition fair, no thrush Cardiovascular: S1, S2 normal. Respiratory: Good air entry, clear to auscultation bilaterally GI: Soft, non-tender; bowel sounds normal. No peritoneal signs. Musculoskeletal: No pedal edema, no cyanosis. Skin: No rash or abscess Hem/Lymphatic: No palpable cervical or supraclavicular nodes. No lymphangitis Psych: Mood ok. Affect normal Neurological: Awake, alert, oriented. No gross abnormality - Constitutional Vitals: Vital Signs Temp Pulse Resp BP Pulse Ox 97.5 F L 87 16 108/67 97 08/30/21 05:00 08/30/21 05:00 08/30/21 05:00 08/30/21 05:00 08/30/21 10:00 Temperature -Last 24 Hours Temperature 97.5 F Temperature 98.9 F Temperature 98.5 F Results - Labs CBC & Chem 7: 08/30/21 05:25 08/30/21 05:25 Labs: Abnormal lab results 08/29/21 08/29/21 08/30/21 Range/Units 12:05 20:34 05:25 WBC 21.5 H (4.5-11.0) K/mm3 RBC 2.71 L (3.65-5.03) M/mm3 Hgb 7.9 L (10.1-14.3) gm/dl Hct 24.7 L (30.3-42.9) % RDW 15.6 H (13.2-15.2) % Potassium (3.6-5.0) mmol/L Chloride (98-107) mmol/L Carbon Dioxide (22-30) mmol/L Glucose (65-100) mg/dL POC Glucose 132 H 122 H (70-105) mg/dL Calcium (8.4-10.2) mg/dL Phosphorus (2.5-4.5) mg/dL Magnesium (1.7-2.3) mg/dL Direct Bilirubin (0-0.2) mg/dL AST (5-40) units/L ALT (7-56) units/L Alkaline Phosphatase (35-129) units/L Total Protein (6.3-8.2) g/dL Albumin (3.9-5) g/dL 08/30/21 Range/Units 05:25 WBC (4.5-11.0) K/mm3 RBC (3.65-5.03) M/mm3 Hgb (10.1-14.3) gm/dl Hct (30.3-42.9) % RDW (13.2-15.2) % Potassium 3.4 L (3.6-5.0) mmol/L Chloride 109.1 H (98-107) mmol/L Carbon Dioxide 20 L (22-30) mmol/L Glucose 103 H (65-100) mg/dL POC Glucose (70-105) mg/dL Calcium 7.4 L (8.4-10.2) mg/dL Phosphorus 1.90 L (2.5-4.5) mg/dL Magnesium 1.30 L (1.7-2.3) mg/dL Direct Bilirubin 0.9 H (0-0.2) mg/dL AST 138 H (5-40) units/L ALT 93 H (7-56) units/L Alkaline Phosphatase 525 H (35-129) units/L Total Protein 4.7 L (6.3-8.2) g/dL Albumin 1.8 L (3.9-5) g/dL Assessment and Plan Cultures: Blood culture gram-negative rods A/P: 76-year-old female past medical history hypertension, diabetes #Acute sepsis: With tachycardia and leukocytosis. Secondary to below #Gram-negative billy bacteremia: Likely secondary to intra-abdominal inflammation with her abdominal masses and cholangitis. 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 -Follow blood cultures Thank you for the consult, we will continue to follow. MD M[facility] O: [phone] F: [phone]
[2021-08-31 05:14] LABS: Hematocrit 25.9 % (30.3-42.9); Hemoglobin 8.3 gm/dl (10.1-14.3); Mean Corpuscular HGB Conc 32 % (30-34); Mean Corpuscular Volume 91 fl (79-97); Platelet Count 219 K/mm3 (140-440); Red Blood Count 2.83 M/mm3 (3.65-5.03); Red Cell Distribution Width 15.8 % (13.2-15.2)
[2021-08-31] MEDS: HEPARIN 5,000 UNIT/1 ML VIAL SUB-Q SCH ×3 (05:31→21:34)
[2021-08-31 05:37] LABS: BUN/Creatinine Ratio 14; Blood Urea Nitrogen 11 mg/dL (7-17); Calcium 7.7 mg/dL (8.4-10.2); Hemolysis Index 0
[2021-08-31] MEDS: PIPERACILLIN/TAZOBACTAM 3.375 3.375 GM/50 ML BAG IV SCH ×3 (06:48→21:33)
[2021-08-31] MEDS ORDERED: POTASSIUM CHLORIDE ER 20 MEQ TAB PO NR (06:50)
[2021-08-31] MEDS: ACETAMINOPHEN 325 MG TAB PO PRN (06:59)
[2021-08-31] MEDS: INSULIN REGULAR, HUMAN 100 UNITS/1 ML SUB-Q SCH ×4 (08:10→21:35)
[2021-08-31] MEDS: FAMOTIDINE 20 MG TAB PO SCH (09:07)
[2021-08-31] MEDS: MORPHINE 2 MG/1 ML INJ IV PRN (09:07)
--- NOTE | 2021-08-31 09:55 | Gastroenterology Progress Note ---
<NAEL MULLIGAN - Last Filed: 08/31/21 09:51> Assessment and Plan 1. Possible cholangitis - continue Zoysn - WBC 18.5, trending down, continue to monitor - IR (Dr. Brunson) has been consulted for possible PTC placement, awaiting recs 2. CBD stones - US 08/25 revealed cholelithiasis, pneumobilia, multiple solid liver masses - CT 08/25 revealed choledocolithiasis w/ large CBD stone - Will likely need ERCP 3. 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 vs pancreatobiliary vs gastric Subjective Date of service: 08/31/21 Principal diagnosis: abd pain, liver lesions Interval history: Pt seen and examined. Laying comfortably in bed. C/o diffuse R sided abd pain. Nurse in room and pt just received morphine. Objective - Constitutional Vitals: Temp Pulse Resp BP Pulse Ox 98.2 F 82 16 114/57 93 08/30/21 23:22 08/30/21 23:22 08/30/21 23:22 08/30/21 23:22 08/30/21 23:22 General appearance: no acute distress - Gastrointestinal General gastrointestinal: Present: soft, non-distended - Integumentary Integumentary: Present: clear, warm, dry - Neurologic Neurological: alert and oriented x3 - Labs CBC & Chem 7: 08/31/21 05:03 08/31/21 05:03 Labs: Laboratory Results - last 24 hr 08/29/21 08/29/21 08/30/21 12:05 20:34 11:59 WBC RBC Hgb Hct MCV MCH MCHC RDW Plt Count Sodium Potassium Chloride Carbon Dioxide Anion Gap BUN Creatinine Estimated GFR BUN/Creatinine Ratio Glucose POC Glucose 132 H 122 H 101 Calcium 08/30/21 08/30/21 08/31/21 17:42 21:09 05:03 WBC 18.5 H RBC 2.83 L Hgb 8.3 L Hct 25.9 L MCV 91 MCH 29 MCHC 32 RDW 15.8 H Plt Count 219 Sodium Potassium Chloride Carbon Dioxide Anion Gap BUN Creatinine Estimated GFR BUN/Creatinine Ratio Glucose POC Glucose 92 88 Calcium 08/31/21 08/31/21 05:03 07:55 WBC RBC Hgb Hct MCV MCH MCHC RDW Plt Count Sodium 144 Potassium 2.9 L* Chloride 112.6 H Carbon Dioxide 20 L Anion Gap 14 BUN 11 Creatinine 0.8 Estimated GFR > 60 BUN/Creatinine Ratio 14 Glucose 75 POC Glucose 58 L Calcium 7.7 L <ALBERTO ORTIZ - Last Filed: 08/31/21 12:49> Assessment and Plan Patient seen and examined. I spent over 50% of time on management and care of the patient. wbc improving, non-toxic appearing . discussed with IR who will be seeing patient today, but suspect pt may not require PTC drain. follow-up oncology recommendations based on path findings. Objective - Constitutional Vitals: Temp Pulse Resp BP Pulse Ox 98.6 F 81 18 140/78 98 08/31/21 07:51 08/31/21 07:51 08/31/21 07:51 08/31/21 07:51 08/31/21 10:00 - Labs CBC & Chem 7: 08/31/21 05:03 08/31/21 05:03 Labs: Laboratory Results - last 24 hr 08/29/21 08/29/21 08/30/21 12:05 20:34 17:42 WBC RBC Hgb Hct MCV MCH MCHC RDW Plt Count Sodium Potassium Chloride Carbon Dioxide Anion Gap BUN Creatinine Estimated GFR BUN/Creatinine Ratio Glucose POC Glucose 132 H 122 H 92 Calcium 08/30/21 08/31/21 08/31/21 21:09 05:03 05:03 WBC 18.5 H RBC 2.83 L Hgb 8.3 L Hct 25.9 L MCV 91 MCH 29 MCHC 32 RDW 15.8 H Plt Count 219 Sodium 144 Potassium 2.9 L* Chloride 112.6 H Carbon Dioxide 20 L Anion Gap 14 BUN 11 Creatinine 0.8 Estimated GFR > 60 BUN/Creatinine Ratio 14 Glucose 75 POC Glucose 88 Calcium 7.7 L 08/31/21 08/31/21 07:55 12:17 WBC RBC Hgb Hct MCV MCH MCHC RDW Plt Count Sodium Potassium Chloride Carbon Dioxide Anion Gap BUN Creatinine Estimated GFR BUN/Creatinine Ratio Glucose POC Glucose 58 L 63 L Calcium
--- NOTE | 2021-08-31 13:20 | Consultation ---
History of Present Illness - Reason for Consult Consult date: 08/31/21 - History of Present Illness Patient presents with a history of abdominal plain and dizziness who underwent evaluation and was noted to have numerous hepatic masses predominantly in the right lobe of the liver with pneumobilia and what appears to be a choledocholithiasis. Patient's T bili appears normal. On examination, the patient is resting comfortably in bed she does have some minimal right-sided flank pain. No other complaints Past History Past Medical History: diabetes, hypertension Past Surgical History: No surgical history Social history: alcohol abuse (Quit over 20 years ago) Family history: hypertension Medications and Allergies Allergies Allergy/AdvReac Type Severity Reaction Status Date / Time No Known Allergies Allergy Verified 08/28/21 09:47 Home Medications Medication Instructions Recorded Confirmed Last Taken Type Amlodipine Besylate/Benazepril 1 cap PO QDAY 08/25/21 08/28/21 1 Day Ago History [Amlodipine-Benazepril 5-40 mg] ~08/24/21 Active Meds: Active Medications Acetaminophen (Acetaminophen 325 Mg Tab) 650 mg PO Q4H PRN PRN Reason: Pain MILD(1-3)/Fever >100.5/[place] Last Admin: 08/31/21 06:59 Dose: 650 mg Albuterol (Albuterol 2.5 Mg/3 Ml Nebu) 2.5 mg IH Q4HRT PRN PRN Reason: Shortness Of Breath Dextrose (Dextrose 50% In Water (25gm) 50 Ml Syringe) 50 ml IV Q30MIN PRN; Protocol PRN Reason: Hypoglycemia Famotidine (Famotidine 20 Mg Tab) 20 mg PO DAILY [facility] Last Admin: 08/31/21 09:07 Dose: 20 mg Heparin Sodium (Porcine) (Heparin 5,000 Unit/1 Ml Vial) 5,000 unit SUB-Q Q8HR [facility] Last Admin: 08/31/21 05:31 Dose: 5,000 unit Piperacillin Sod/Tazobactam Sod (Zosyn/Ns 3.375gm/50ml) 3.375 gm in 50 mls @ 100 mls/hr IV Q8HR [facility]; Protocol Last Admin: 08/31/21 06:48 Dose: 100 mls/hr Insulin Human Regular (Insulin Regular, Human 100 Units/1 Ml) 0 units SUB-Q ACHS [facility]; Protocol Last Admin: 08/31/21 08:10 Dose: Not Given Morphine Sulfate (Morphine 2 Mg/1 Ml Inj) 2 mg IV Q4H PRN PRN Reason: Pain, Moderate (4-6) Last Admin: 08/31/21 09:07 Dose: 2 mg Naloxone HCl (Naloxone 0.4 Mg/1 Ml Inj) 0.1 mg IV Q2MIN PRN PRN Reason: Res Rate </= 8 or 02 SAT < 92% Ondansetron HCl (Ondansetron 4 Mg/2 Ml Inj) 4 mg IV Q4H PRN PRN Reason: Nausea And Vomiting Sodium Chloride (Sodium Chloride 0.9% 10 Ml Flush Syringe) 10 ml IV BID [facility] Last Admin: 08/31/21 09:08 Dose: 10 ml Sodium Chloride (Sodium Chloride 0.9% 10 Ml Flush Syringe) 10 ml IV PRN PRN PRN Reason: LINE FLUSH Review of Systems All systems: negative Exam - Constitutional Vitals: Temp Pulse Resp BP Pulse Ox 98.6 F 81 18 140/78 98 08/31/21 07:51 08/31/21 07:51 08/31/21 07:51 08/31/21 07:51 08/31/21 10:00 General appearance: Present: no acute distress - EENT Eyes: Present: EOM intact ENT: hearing intact - Neck Neck: Present: supple, normal ROM - Respiratory Respiratory effort: normal - Rectal Rectal Exam: deferred - Psychiatric Psychiatric: appropriate mood/affect, cooperative Results - Labs CBC & Chem 7: 08/31/21 05:03 08/31/21 05:03 Labs: Abnormal lab results 08/31/21 08/31/21 08/31/21 Range/Units 05:03 05:03 07:55 WBC 18.5 H (4.5-11.0) K/mm3 RBC 2.83 L (3.65-5.03) M/mm3 Hgb 8.3 L (10.1-14.3) gm/dl Hct 25.9 L (30.3-42.9) % RDW 15.8 H (13.2-15.2) % Potassium 2.9 L* (3.6-5.0) mmol/L Chloride 112.6 H (98-107) mmol/L Carbon Dioxide 20 L (22-30) mmol/L POC Glucose 58 L (70-105) mg/dL Calcium 7.7 L (8.4-10.2) mg/dL 08/31/21 Range/Units 12:17 WBC (4.5-11.0) K/mm3 RBC (3.65-5.03) M/mm3 Hgb (10.1-14.3) gm/dl Hct (30.3-42.9) % RDW (13.2-15.2) % Potassium (3.6-5.0) mmol/L Chloride (98-107) mmol/L Carbon Dioxide (22-30) mmol/L POC Glucose 63 L (70-105) mg/dL Calcium (8.4-10.2) mg/dL - Imaging and Cardiology CT scan - abdomen: image reviewed CT scan - pelvis: image reviewed Assessment and Plan Patient with multiple hepatic malignancies predominantly in the right lobe with obstructing stone in the common bile duct. 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 Initial path demonstrates carcinoma. Once delineation of final path is made, treatment decisions can be made. No interventions planned at this time given the patient's spontaneous decompression. The patient may benefit from transfer to [place] with hepatobiliary surgery.
[2021-08-31] MEDS ORDERED: POTASSIUM PHOSPHATE 30 MMOL in SODIUM CHLORIDE 0.9% 500 ML 500 ML IV ONE (13:25)
[2021-08-31] MEDS ORDERED: POTASSIUM CHLORIDE ER 20 MEQ TAB PO ONE (13:30)
--- NOTE | 2021-08-31 13:32 | Progress Note ---
<GERMANIA NG - Last Filed: 08/31/21 13:36> Assessment and Plan Assessment and plan: Suspected cholangitis - WBC 18.5 (trending down 21.5 yesterday), BC positve Klebsiella pneumonia, Continue Zosyn -Contune to trend CBC - IR (Dr. Brunson) consulted for possible biliary stent vs biliary drain placeme nt, awaiting recs CBD stones - US 08/25 revealed cholelithiasis, pneumobilia, multiple solid liver masses -CT 08/25 revealed choledocolithiasis w/ large CBD stone -?? possible ERCP - GI following, recs appreciated Liver masses - Preliminary cytology revealed malignant calls consistent w/ carcinoma; awaiting final report -may require transfer to higher acuity facility Acute abd pain -Multifactorial likely due to #1, #2, #3 -Pain management -Supportive care DM2 -POC BG monitoring -SSI coverage -Consistent carb diet HTN -Presently borderline hypotension -Monitor BP -Hold antihypertensive meds for now Hypokalemia -Severe 2.9 -Replete -Monitor electrolytes and replete as needed DVT PPX -On Heparin and SCD's History Interval history: 76-year-old female with known past medical history of HTN and DM who was admitted for Choledocholithiasis, Cholelithiasis , Pneumobilia and multiple liver masses. She underwent liver biopsy on 08/28. At the time of my examination, pt is awake in bed. She complains of 7/10 sharp right sided abd pain that is relieved with pain meds. Her sister is present and bedside. No overnight events reported. GI following and surgery consulted with recs pending. Hospitalist Physical - Constitutional Vitals: Temp Pulse Resp BP Pulse Ox 98.6 F 81 18 140/78 98 08/31/21 07:51 08/31/21 07:51 08/31/21 07:51 08/31/21 07:51 08/31/21 10:00 General appearance: Present: no acute distress - EENT Eyes: Present: PERRL, EOM intact ENT: hearing intact, clear oral mucosa, dentition normal - Neck Neck: Present: supple, normal ROM - Respiratory Respiratory effort: normal Respiratory: bilateral: CTA - Cardiovascular Rhythm: regular Heart Sounds: Present: S1 & S2 - Extremities Extremities: pulses intact, No edema Peripheral Pulses: within normal limits - Abdominal General gastrointestinal: soft, tender, normal bowel sounds Localized gastrointestinal: tender: RUQ, RLQ - Integumentary Integumentary: Present: clear, warm, dry - Psychiatric Psychiatric: appropriate mood/affect - Neurologic Neurologic: CNII-XII intact HEART Score - HEART Score Troponin: Troponin T < 0.010 ng/mL (0.00-0.029) 08/25/21 03:13 Results - Labs CBC & Chem 7: 08/31/21 05:03 08/31/21 05:03 Labs: Laboratory Last Values WBC 18.5 K/mm3 (4.5-11.0) H 08/31/21 05:03 RBC 2.83 M/mm3 (3.65-5.03) L 08/31/21 05:03 Hgb 8.3 gm/dl (10.1-14.3) L 08/31/21 05:03 Hct 25.9 % (30.3-42.9) L 08/31/21 05:03 MCV 91 fl (79-97) 08/31/21 05:03 MCH 29 pg (28-32) 08/31/21 05:03 MCHC 32 % (30-34) 08/31/21 05:03 RDW 15.8 % (13.2-15.2) H 08/31/21 05:03 Plt Count 219 K/mm3 (140-440) 08/31/21 05:03 Lymph % (Auto) 10.7 % (13.4-35.0) L 08/26/21 06:38 [place] % (Auto) 10.4 % (0.0-7.3) H 08/26/21 06:38 Eos % (Auto) 0.4 % (0.0-4.3) 08/26/21 06:38 Baso % (Auto) 0.6 % (0.0-1.8) 08/26/21 06:38 Lymph # (Auto) 0.8 K/mm3 (1.2-5.4) L 08/26/21 06:38 [place] # (Auto) 0.8 K/mm3 (0.0-0.8) 08/26/21 06:38 Eos # (Auto) 0.0 K/mm3 (0.0-0.4) 08/26/21 06:38 Baso # (Auto) 0.0 K/mm3 (0.0-0.1) 08/26/21 06:38 Add Manual Diff Complete 08/29/21 01:23 Total Counted 100 08/29/21 01:23 Seg Neutrophils % Base Remover 08/29/21 01:23 Seg Neuts % (Manual) 99.0 % (40.0-70.0) H 08/29/21 01:23 Band Neutrophils % 0 % 08/29/21 01:23 Lymphocytes % (Manual) 1.0 % (13.4-35.0) L 08/29/21 01:23 Reactive Lymphs % (Man) 0 % 08/29/21 01:23 Monocytes % (Manual) 0 % (0.0-7.3) 08/29/21 01:23 Eosinophils % (Manual) 0 % (0.0-4.3) 08/29/21 01:23 Basophils % (Manual) 0 % (0.0-1.8) 08/29/21 01:23 Metamyelocytes % 0 % 08/29/21 01:23 Myelocytes % 0 % 08/29/21 01:23 Promyelocytes % 0 % 08/29/21 01:23 Blast Cells % 0 % 08/29/21 01:23 Nucleated RBC % 1.0 % (0.0-0.9) H 08/29/21 01:23 Seg Neutrophils # 6.0 K/mm3 (1.8-7.7) 08/26/21 06:38 Seg Neutrophils # Man 21.3 K/mm3 (1.8-7.7) H 08/29/21 01:23 Band Neutrophils # 0.0 K/mm3 08/29/21 01:23 Lymphocytes # (Manual) 0.2 K/mm3 (1.2-5.4) L 08/29/21 01:23 Abs React Lymphs (Man) 0.0 K/mm3 08/29/21 01:23 Monocytes # (Manual) 0.0 K/mm3 (0.0-0.8) 08/29/21 01:23 Eosinophils # (Manual) 0.0 K/mm3 (0.0-0.4) 08/29/21 01:23 Basophils # (Manual) 0.0 K/mm3 (0.0-0.1) 08/29/21 01:23 Metamyelocytes # 0.0 K/mm3 08/29/21 01:23 Myelocytes # 0.0 K/mm3 08/29/21 01:23 Promyelocytes # 0.0 K/mm3 08/29/21 01:23 Blast Cells # 0.0 K/mm3 08/29/21 01:23 WBC Morphology Not Reportable 08/29/21 01:23 Hypersegmented Neuts Not Reportable 08/29/21 01:23 Hyposegmented Neuts Not Reportable 08/29/21 01:23 Hypogranular Neuts Not Reportable 08/29/21 01:23 Smudge Cells Not Reportable 08/29/21 01:23 Toxic Granulation Not Reportable 08/29/21 01:23 Toxic Vacuolation Not Reportable 08/29/21 01:23 Dohle Bodies Not Reportable 08/29/21 01:23 Pelger-Huet Anomaly Not Reportable 08/29/21 01:23 Sam Rods Not Reportable 08/29/21 01:23 Platelet Estimate Consistent w auto 08/29/21 01:23 Clumped Platelets Not Reportable 08/29/21 01:23 Plt Clumps, EDTA Not Reportable 08/29/21 01:23 Large Platelets Not Reportable 08/29/21 01:23 Giant Platelets Not Reportable 08/29/21 01:23 Platelet Satelliting Not Reportable 08/29/21 01:23 Plt Morphology Comment Not Reportable 08/29/21 01:23 RBC Morphology Not Reportable 08/29/21 01:23 Dimorphic RBCs Not Reportable 08/29/21 01:23 Polychromasia Not Reportable 08/29/21 01:23 Hypochromasia Not Reportable 08/29/21 01:23 Poikilocytosis Not Reportable 08/29/21 01:23 Anisocytosis 1+ 08/29/21 01:23 Microcytosis Not Reportable 08/29/21 01:23 Macrocytosis Not Reportable 08/29/21 01:23 Spherocytes Not Reportable 08/29/21 01:23 Pappenheimer Bodies Not Reportable 08/29/21 01:23 Sickle Cells Not Reportable 08/29/21 01:23 Target Cells Not Reportable 08/29/21 01:23 Tear Drop Cells Not Reportable 08/29/21 01:23 Ovalocytes Not Reportable 08/29/21 01:23 Helmet Cells Not Reportable 08/29/21 01:23 Hugo-Bogart Bodies Not Reportable 08/29/21 01:23 [place] Rings Not Reportable 08/29/21 01:23 Ellie Cells Not Reportable 08/29/21 01:23 Bite Cells Not Reportable 08/29/21 01:23 Crenated Cell Not Reportable 08/29/21 01:23 Elliptocytes Not Reportable 08/29/21 01:23 Acanthocytes (Spur) Not Reportable 08/29/21 01:23 Rouleaux Not Reportable 08/29/21 01:23 Hemoglobin C Crystals Not Reportable 08/29/21 01:23 Schistocytes Not Reportable 08/29/21 01:23 Malaria parasites Not Reportable 08/29/21 01:23 Irving Bodies Not Reportable 08/29/21 01:23 Hem Pathologist Commnt No 08/29/21 01:23 PT 13.8 Sec. (12.2-14.9) 08/25/21 05:12 INR 0.96 (0.87-1.13) 08/25/21 05:12 APTT 30.3 Sec. (24.2-36.6) 08/25/21 05:12 Sodium 144 mmol/L (137-145) 08/31/21 05:03 Potassium 2.9 mmol/L (3.6-5.0) L* 08/31/21 05:03 Chloride 112.6 mmol/L (98-107) H 08/31/21 05:03 Carbon Dioxide 20 mmol/L (22-30) L 08/31/21 05:03 Anion Gap 14 mmol/L 08/31/21 05:03 BUN 11 mg/dL (7-17) 08/31/21 05:03 Creatinine 0.8 mg/dL (0.6-1.2) 08/31/21 05:03 Estimated GFR > 60 ml/min 08/31/21 05:03 BUN/Creatinine Ratio 14 % 08/31/21 05:03 Glucose 75 mg/dL (65-100) 08/31/21 05:03 POC Glucose 63 mg/dL (70-105) L 08/31/21 12:17 Lactic Acid 1.50 mmol/L (0.7-2.0) 08/25/21 05:29 Calcium 7.7 mg/dL (8.4-10.2) L 08/31/21 05:03 Phosphorus 1.90 mg/dL (2.5-4.5) L 08/30/21 05:25 Magnesium 1.30 mg/dL (1.7-2.3) L 08/30/21 05:25 Iron 32 ug/dL (37-170) L 08/26/21 06:38 TIBC 135 mcg/dL (250-450) L 08/26/21 06:38 Total Bilirubin 1.00 mg/dL (0.1-1.2) 08/30/21 05:25 Direct Bilirubin 0.9 mg/dL (0-0.2) H 08/30/21 05:25 Indirect Bilirubin 0.1 mg/dL 08/30/21 05:25 AST 138 units/L (5-40) H 08/30/21 05:25 ALT 93 units/L (7-56) H 08/30/21 05:25 Alkaline Phosphatase 525 units/L (35-129) H 08/30/21 05:25 Total Creatine Kinase 51 units/L (30-135) 08/25/21 03:13 Troponin T < 0.010 ng/mL (0.00-0.029) 08/25/21 03:13 Total Protein 4.7 g/dL (6.3-8.2) L 08/30/21 05:25 Albumin 1.8 g/dL (3.9-5) L 08/30/21 05:25 Albumin/Globulin Ratio 0.6 % 08/30/21 05:25 Carcinoembryonic Ag 20.8 ng/mL (0.0-2.4) H 08/26/21 06:38 CA 19-9 Antigen 5 U/mL (<34) 08/26/21 06:38 TSH 2.440 mlU/mL (0.270-4.200) 08/25/21 03:13 Urine Color Yellow (Yellow) 08/26/21 05:09 Urine Turbidity Clear (Clear) 08/26/21 05:09 Urine pH 5.0 (5.0-7.0) 08/26/21 05:09 Ur Specific Glennie 1.020 (1.003-1.030) 08/26/21 05:09 Urine Protein <15 mg/dl mg/dL (Negative) 08/26/21 05:09 Urine Glucose (UA) >=500 mg/dL (Negative) 08/26/21 05:09 Urine Ketones 20 mg/dL (Negative) 08/26/21 05:09 Urine Blood Mod (Negative) 08/26/21 05:09 Urine Nitrite Neg (Negative) 08/26/21 05:09 Urine Bilirubin Neg (Negative) 08/26/21 05:09 Urine Urobilinogen < 2.0 mg/dL (<2.0) 08/26/21 05:09 Ur Leukocyte Esterase Mod (Negative) 08/26/21 05:09 Urine WBC (Auto) 33.0 /HPF (0.0-6.0) H 08/26/21 05:09 Urine RBC (Auto) 6.0 /HPF (0.0-6.0) 08/26/21 05:09 U Epithel Cells (Auto) 3.0 /HPF (0-13.0) 08/26/21 05:09 Urine Bacteria (Auto) 1+ /HPF (Negative) 08/26/21 05:09 Calcium Oxalate Crystal Few 08/26/21 05:09 Urine Mucus 2+ /HPF 08/26/21 05:09 Blood Type O POSITIVE 08/29/21 04:34 Antibody Screen Negative 08/29/21 04:34 Microbiology: Microbiology 08/29/21 10:26 Peripheral/Venous Blood Culture - Preliminary Klebsiella Pneumoniae 08/25/21 06:02 Peripheral/Venous Blood Culture - Final NO GROWTH AFTER 5 DAYS Pham/IV: Voiding Method External Female Catheter Active Medications - Current Medications Current Medications: Generic Name Dose Route Start Last Admin Trade Name Freq PRN Reason Stop Dose Admin Acetaminophen 650 mg 08/25/21 07:13 08/31/21 06:59 Acetaminophen 325 Mg Tab PO 650 mg Q4H PRN Administration Pain MILD(1-3)/Fever >100.5/[place] Albuterol 2.5 mg 08/25/21 07:13 Albuterol 2.5 Mg/3 Ml Nebu IH Q4HRT PRN Shortness Of Breath Dextrose 50 ml 08/25/21 08:23 Dextrose 50% In Water (25gm) 50 Ml Syringe IV Q30MIN PRN Hypoglycemia Protocol Famotidine 20 mg 06/14/22 10:00 08/31/21 09:07 Famotidine 20 Mg Tab PO 20 mg DAILY PK Administration Heparin Sodium (Porcine) 5,000 unit 08/25/21 14:00 08/31/21 05:31 Heparin 5,000 Unit/1 Ml Vial SUB-Q 5,000 unit Q8HR PK Administration Piperacillin Sod/Tazobactam Sod 3.375 gm in 50 mls @ 100 mls/hr 08/30/21 14:00 08/31/21 06:48 Zosyn/Ns 3.375gm/50ml IV 100 mls/hr Q8HR PK Administration Protocol Potassium Chloride 10 meq in 100 mls @ 100 mls/hr 08/31/21 14:00 Kcl 10meq/100ml IV 08/31/21 17:59 Q1H PK Potassium Phosphate 30 mmol/ 510 mls @ 85 mls/hr 08/31/21 13:25 Sodium Chloride IV 08/31/21 19:24 ONCE ONE Insulin Human Regular 0 units 08/25/21 11:30 08/31/21 08:10 Insulin Regular, Human 100 Units/1 Ml SUB-Q Not Given ACHS [facility] Protocol Morphine Sulfate 2 mg 08/25/21 07:13 08/31/21 09:07 Morphine 2 Mg/1 Ml Inj IV 2 mg Q4H PRN Administration Pain, Moderate (4-6) Naloxone HCl 0.1 mg 08/25/21 07:13 Naloxone 0.4 Mg/1 Ml Inj IV Q2MIN PRN Res Rate </= 8 or 02 SAT < 92% Ondansetron HCl 4 mg 08/25/21 07:13 Ondansetron 4 Mg/2 Ml Inj IV Q4H PRN Nausea And Vomiting Sodium Chloride 10 ml 08/25/21 10:00 08/31/21 09:08 Sodium Chloride 0.9% 10 Ml Flush Syringe IV 10 ml BID PK Administration Sodium Chloride 10 ml 08/25/21 07:13 Sodium Chloride 0.9% 10 Ml Flush Syringe IV PRN PRN LINE FLUSH Nutrition/Malnutrition Assess - Dietary Evaluation Nutrition/Malnutrition Findings: Nutrition Notes Start: 08/25/21 12:28 Freq: Status: Active Protocol: Document 08/28/21 15:00 STEF (Rec: 08/28/21 15:22 STEF [id number]) Nutrition Notes Initial or Follow up Brief Note Current Diagnosis Diabetes,Hypertension Other Pertinent Diagnosis Choledocholithiasis, Liver Masses & Abscesses, Cystitis, Pneumobilia, ... Current Diet Full Liquids Diet (since D ). Height 5 ft 4 in Weight 50.802 kg Joy Body Weight (kg) 54.54 BMI 19.2 Intake Prior to Admission Poor Weight change and time frame Pt states having loss about 25 lb of body weight [employer]. No body weight change reported in 3 days. Weight Status Appropriate Subjective/Other Information RD consult for routine F/U on dietary advancement assessment . Pt advanced to PO to start tonight, no reports available yet on Pt's PO intake of meals , will assess at F/U. Swallow assessment passed on 08/26 and 08/28, acccording to Bedside Swallow Screen notes. Pt is on Room Air, O2 saturation @ 100%, according to Physical Assessment Historty notes. Pt has missing teeth, according to Physical Assessment Historty notes. Pt states having loss about 25 lb within the last few months , according to Progress notes. Pt continues in critical condition, not a candidate for Nutrition Education at the time, will assess feasibility on F/U. Percent of energy/protein needs met: Prescribed Full Liquids Diet provides for energy/protein needs (1,155 Kcal/37 g) during LOS. Nutrition Intervention Follow-Up By: 09/04/21 Additional Comments Nutrition education will be provided at F/U, if feasible. Start monitoring food tolerance, %PO intake of meals , and BM. <REGLA MARISCAL - Last Filed: 08/31/21 16:33> Assessment and Plan Assessment and plan: I saw and evaluated the patient. I agree with the findings and the plan of care as documented in the Nurse Practitioner's~note, with the following corrections and additions. Hospitalist Physical - Constitutional Vitals: Temp Pulse Resp BP Pulse Ox 98.6 F 81 18 140/78 98 08/31/21 07:51 08/31/21 07:51 08/31/21 07:51 08/31/21 07:51 08/31/21 10:00 HEART Score - HEART Score Troponin: Troponin T < 0.010 ng/mL (0.00-0.029) 08/25/21 03:13 Results - Labs CBC & Chem 7: 08/31/21 05:03 08/31/21 05:03 Labs: Laboratory Last Values WBC 18.5 K/mm3 (4.5-11.0) H 08/31/21 05:03 RBC 2.83 M/mm3 (3.65-5.03) L 08/31/21 05:03 Hgb 8.3 gm/dl (10.1-14.3) L 08/31/21 05:03 Hct 25.9 % (30.3-42.9) L 08/31/21 05:03 MCV 91 fl (79-97) 08/31/21 05:03 MCH 29 pg (28-32) 08/31/21 05:03 MCHC 32 % (30-34) 08/31/21 05:03 RDW 15.8 % (13.2-15.2) H 08/31/21 05:03 Plt Count 219 K/mm3 (140-440) 08/31/21 05:03 Lymph % (Auto) 10.7 % (13.4-35.0) L 08/26/21 06:38 [place] % (Auto) 10.4 % (0.0-7.3) H 08/26/21 06:38 Eos % (Auto) 0.4 % (0.0-4.3) 08/26/21 06:38 Baso % (Auto) 0.6 % (0.0-1.8) 08/26/21 06:38 Lymph # (Auto) 0.8 K/mm3 (1.2-5.4) L 08/26/21 06:38 [place] # (Auto) 0.8 K/mm3 (0.0-0.8) 08/26/21 06:38 Eos # (Auto) 0.0 K/mm3 (0.0-0.4) 08/26/21 06:38 Baso # (Auto) 0.0 K/mm3 (0.0-0.1) 08/26/21 06:38 Add Manual Diff Complete 08/29/21 01:23 Total Counted 100 08/29/21 01:23 Seg Neutrophils % Base Remover 08/29/21 01:23 Seg Neuts % (Manual) 99.0 % (40.0-70.0) H 08/29/21 01:23 Band Neutrophils % 0 % 08/29/21 01:23 Lymphocytes % (Manual) 1.0 % (13.4-35.0) L 08/29/21 01:23 Reactive Lymphs % (Man) 0 % 08/29/21 01:23 Monocytes % (Manual) 0 % (0.0-7.3) 08/29/21 01:23 Eosinophils % (Manual) 0 % (0.0-4.3) 08/29/21 01:23 Basophils % (Manual) 0 % (0.0-1.8) 08/29/21 01:23 Metamyelocytes % 0 % 08/29/21 01:23 Myelocytes % 0 % 08/29/21 01:23 Promyelocytes % 0 % 08/29/21 01:23 Blast Cells % 0 % 08/29/21 01:23 Nucleated RBC % 1.0 % (0.0-0.9) H 08/29/21 01:23 Seg Neutrophils # 6.0 K/mm3 (1.8-7.7) 08/26/21 06:38 Seg Neutrophils # Man 21.3 K/mm3 (1.8-7.7) H 08/29/21 01:23 Band Neutrophils # 0.0 K/mm3 08/29/21 01:23 Lymphocytes # (Manual) 0.2 K/mm3 (1.2-5.4) L 08/29/21 01:23 Abs React Lymphs (Man) 0.0 K/mm3 08/29/21 01:23 Monocytes # (Manual) 0.0 K/mm3 (0.0-0.8) 08/29/21 01:23 Eosinophils # (Manual) 0.0 K/mm3 (0.0-0.4) 08/29/21 01:23 Basophils # (Manual) 0.0 K/mm3 (0.0-0.1) 08/29/21 01:23 Metamyelocytes # 0.0 K/mm3 08/29/21 01:23 Myelocytes # 0.0 K/mm3 08/29/21 01:23 Promyelocytes # 0.0 K/mm3 08/29/21 01:23 Blast Cells # 0.0 K/mm3 08/29/21 01:23 WBC Morphology Not Reportable 08/29/21 01:23 Hypersegmented Neuts Not Reportable 08/29/21 01:23 Hyposegmented Neuts Not Reportable 08/29/21 01:23 Hypogranular Neuts Not Reportable 08/29/21 01:23 Smudge Cells Not Reportable 08/29/21 01:23 Toxic Granulation Not Reportable 08/29/21 01:23 Toxic Vacuolation Not Reportable 08/29/21 01:23 Dohle Bodies Not Reportable 08/29/21 01:23 Pelger-Huet Anomaly Not Reportable 08/29/21 01:23 Sam Rods Not Reportable 08/29/21 01:23 Platelet Estimate Consistent w auto 08/29/21 01:23 Clumped Platelets Not Reportable 08/29/21 01:23 Plt Clumps, EDTA Not Reportable 08/29/21 01:23 Large Platelets Not Reportable 08/29/21 01:23 Giant Platelets Not Reportable 08/29/21 01:23 Platelet Satelliting Not Reportable 08/29/21 01:23 Plt Morphology Comment Not Reportable 08/29/21 01:23 RBC Morphology Not Reportable 08/29/21 01:23 Dimorphic RBCs Not Reportable 08/29/21 01:23 Polychromasia Not Reportable 08/29/21 01:23 Hypochromasia Not Reportable 08/29/21 01:23 Poikilocytosis Not Reportable 08/29/21 01:23 Anisocytosis 1+ 08/29/21 01:23 Microcytosis Not Reportable 08/29/21 01:23 Macrocytosis Not Reportable 08/29/21 01:23 Spherocytes Not Reportable 08/29/21 01:23 Pappenheimer Bodies Not Reportable 08/29/21 01:23 Sickle Cells Not Reportable 08/29/21 01:23 Target Cells Not Reportable 08/29/21 01:23 Tear Drop Cells Not Reportable 08/29/21 01:23 Ovalocytes Not Reportable 08/29/21 01:23 Helmet Cells Not Reportable 08/29/21 01:23 Huog-Bogart Bodies Not Reportable 08/29/21 01:23 Copeland Rings Not Reportable 08/29/21 01:23 [place] Cells Not Reportable 08/29/21 01:23 Bite Cells Not Reportable 08/29/21 01:23 Crenated Cell Not Reportable 08/29/21 01:23 Elliptocytes Not Reportable 08/29/21 01:23 Acanthocytes (Spur) Not Reportable 08/29/21 01:23 Rouleaux Not Reportable 08/29/21 01:23 Hemoglobin C Crystals Not Reportable 08/29/21 01:23 Schistocytes Not Reportable 08/29/21 01:23 Malaria parasites Not Reportable 08/29/21 01:23 Irving Bodies Not Reportable 08/29/21 01:23 Hem Pathologist Commnt No 08/29/21 01:23 PT 13.8 Sec. (12.2-14.9) 08/25/21 05:12 INR 0.96 (0.87-1.13) 08/25/21 05:12 APTT 30.3 Sec. (24.2-36.6) 08/25/21 05:12 Sodium 144 mmol/L (137-145) 08/31/21 05:03 Potassium 2.9 mmol/L (3.6-5.0) L* 08/31/21 05:03 Chloride 112.6 mmol/L (98-107) H 08/31/21 05:03 Carbon Dioxide 20 mmol/L (22-30) L 08/31/21 05:03 Anion Gap 14 mmol/L 08/31/21 05:03 BUN 11 mg/dL (7-17) 08/31/21 05:03 Creatinine 0.8 mg/dL (0.6-1.2) 08/31/21 05:03 Estimated GFR > 60 ml/min 08/31/21 05:03 BUN/Creatinine Ratio 14 % 08/31/21 05:03 Glucose 75 mg/dL (65-100) 08/31/21 05:03 POC Glucose 63 mg/dL (70-105) L 08/31/21 12:17 Lactic Acid 1.50 mmol/L (0.7-2.0) 08/25/21 05:29 Calcium 7.7 mg/dL (8.4-10.2) L 08/31/21 05:03 Phosphorus 2.80 mg/dL (2.5-4.5) D 08/31/21 13:21 Magnesium 2.20 mg/dL (1.7-2.3) 08/31/21 13:20 Iron 32 ug/dL (37-170) L 08/26/21 06:38 TIBC 135 mcg/dL (250-450) L 08/26/21 06:38 Total Bilirubin 1.00 mg/dL (0.1-1.2) 08/30/21 05:25 Direct Bilirubin 0.9 mg/dL (0-0.2) H 08/30/21 05:25 Indirect Bilirubin 0.1 mg/dL 08/30/21 05:25 AST 138 units/L (5-40) H 08/30/21 05:25 ALT 93 units/L (7-56) H 08/30/21 05:25 Alkaline Phosphatase 525 units/L (35-129) H 08/30/21 05:25 Total Creatine Kinase 51 units/L (30-135) 08/25/21 03:13 Troponin T < 0.010 ng/mL (0.00-0.029) 08/25/21 03:13 Total Protein 4.7 g/dL (6.3-8.2) L 08/30/21 05:25 Albumin 1.8 g/dL (3.9-5) L 08/30/21 05:25 Albumin/Globulin Ratio 0.6 % 08/30/21 05:25 Carcinoembryonic Ag 20.8 ng/mL (0.0-2.4) H 08/26/21 06:38 CA 19-9 Antigen 5 U/mL (<34) 08/26/21 06:38 TSH 2.440 mlU/mL (0.270-4.200) 08/25/21 03:13 Urine Color Yellow (Yellow) 08/26/21 05:09 Urine Turbidity Clear (Clear) 08/26/21 05:09 Urine pH 5.0 (5.0-7.0) 08/26/21 05:09 Ur Specific Glennie 1.020 (1.003-1.030) 08/26/21 05:09 Urine Protein <15 mg/dl mg/dL (Negative) 08/26/21 05:09 Urine Glucose (UA) >=500 mg/dL (Negative) 08/26/21 05:09 Urine Ketones 20 mg/dL (Negative) 08/26/21 05:09 Urine Blood Mod (Negative) 08/26/21 05:09 Urine Nitrite Neg (Negative) 08/26/21 05:09 Urine Bilirubin Neg (Negative) 08/26/21 05:09 Urine Urobilinogen < 2.0 mg/dL (<2.0) 08/26/21 05:09 Ur Leukocyte Esterase Mod (Negative) 08/26/21 05:09 Urine WBC (Auto) 33.0 /HPF (0.0-6.0) H 08/26/21 05:09 Urine RBC (Auto) 6.0 /HPF (0.0-6.0) 08/26/21 05:09 U Epithel Cells (Auto) 3.0 /HPF (0-13.0) 08/26/21 05:09 Urine Bacteria (Auto) 1+ /HPF (Negative) 08/26/21 05:09 Calcium Oxalate Crystal Few 08/26/21 05:09 Urine Mucus 2+ /HPF 08/26/21 05:09 Blood Type O POSITIVE 08/29/21 04:34 Antibody Screen Negative 08/29/21 04:34 Microbiology: Microbiology 08/29/21 10:26 Peripheral/Venous Blood Culture - Preliminary Klebsiella Pneumoniae Pham/IV: Voiding Method External Female Catheter Active Medications - Current Medications Current Medications: Generic Name Dose Route Start Last Admin Trade Name Freq PRN Reason Stop Dose Admin Acetaminophen 650 mg 08/25/21 07:13 08/31/21 06:59 Acetaminophen 325 Mg Tab PO 650 mg Q4H PRN Administration Pain MILD(1-3)/Fever >100.5/[place] Albuterol 2.5 mg 08/25/21 07:13 Albuterol 2.5 Mg/3 Ml Nebu IH Q4HRT PRN Shortness Of Breath Dextrose 50 ml 08/25/21 08:23 Dextrose 50% In Water (25gm) 50 Ml Syringe IV Q30MIN PRN Hypoglycemia Protocol Famotidine 20 mg 08/29/21 10:00 08/31/21 09:07 Famotidine 20 Mg Tab PO 20 mg DAILY PK Administration Heparin Sodium (Porcine) 5,000 unit 08/25/21 14:00 08/31/21 15:09 Heparin 5,000 Unit/1 Ml Vial SUB-Q 5,000 unit Q8HR PK Administration Piperacillin Sod/Tazobactam Sod 3.375 gm in 50 mls @ 100 mls/hr 08/30/21 14:00 08/31/21 06:48 Zosyn/Ns 3.375gm/50ml IV 100 mls/hr Q8HR [facility] Administration Protocol Potassium Chloride 10 meq in 100 mls @ 100 mls/hr 08/31/21 14:00 Kcl 10meq/100ml IV 08/31/21 17:59 Q1H [facility] Potassium Phosphate 30 mmol/ 510 mls @ 85 mls/hr 08/31/21 13:25 Sodium Chloride IV 08/31/21 19:24 ONCE ONE Insulin Human Regular 0 units 08/25/21 11:30 08/31/21 13:52 Insulin Regular, Human 100 Units/1 Ml SUB-Q Not Given ACHS [facility] Protocol Morphine Sulfate 2 mg 08/25/21 07:13 08/31/21 09:07 Morphine 2 Mg/1 Ml Inj IV 2 mg Q4H PRN Administration Pain, Moderate (4-6) Naloxone HCl 0.1 mg 08/25/21 07:13 Naloxone 0.4 Mg/1 Ml Inj IV Q2MIN PRN Res Rate </= 8 or 02 SAT < 92% Ondansetron HCl 4 mg 08/25/21 07:13 Ondansetron 4 Mg/2 Ml Inj IV Q4H PRN Nausea And Vomiting Sodium Chloride 10 ml 08/25/21 10:00 08/31/21 09:08 Sodium Chloride 0.9% 10 Ml Flush Syringe IV 10 ml BID PK Administration Sodium Chloride 10 ml 08/25/21 07:13 Sodium Chloride 0.9% 10 Ml Flush Syringe IV PRN PRN LINE FLUSH Nutrition/Malnutrition Assess - Dietary Evaluation Nutrition/Malnutrition Findings: Nutrition Notes Start: 08/25/21 12:28 Freq: Status: Active Protocol: Document 08/28/21 15:00 STEF (Rec: 08/28/21 15:22 STEF [id number]) Nutrition Notes Initial or Follow up Brief Note Current Diagnosis Diabetes,Hypertension Other Pertinent Diagnosis Choledocholithiasis, Liver Masses & Abscesses, Cystitis, Pneumobilia, ... Current Diet Full Liquids Diet (since D ). Height 5 ft 4 in Weight 50.802 kg Joy Body Weight (kg) 54.54 BMI 19.2 Intake Prior to Admission Poor Weight change and time frame Pt states having loss about 25 lb of body weight [employer]. No body weight change reported in 3 days. Weight Status Appropriate Subjective/Other Information RD consult for routine F/U on dietary advancement assessment . Pt advanced to PO to start tonight, no reports available yet on Pt's PO intake of meals , will assess at F/U. Swallow assessment passed on 08/26 and 08/28, acccording to Bedside Swallow Screen notes. Pt is on Room Air, O2 saturation @ 100%, according to Physical Assessment Historty notes. Pt has missing teeth, according to Physical Assessment Historty notes. Pt states having loss about 25 lb within the last few months , according to Progress notes. Pt continues in critical condition, not a candidate for Nutrition Education at the time, will assess feasibility on F/U. Percent of energy/protein needs met: Prescribed Full Liquids Diet provides for energy/protein needs (1,155 Kcal/37 g) during LOS. Nutrition Intervention Follow-Up By: 09/04/21 Additional Comments Nutrition education will be provided at F/U, if feasible. Start monitoring food tolerance, %PO intake of meals , and BM.
--- NOTE | 2021-08-31 16:22 | Progress Note ---
Assessment and Plan Cultures: Blood culture gram-negative rods A/P: 76-year-old female past medical history hypertension, diabetes #Acute sepsis: With tachycardia and leukocytosis. Secondary to below #Gram-negative billy bacteremia: Likely secondary to intra-abdominal inflammation with her abdominal masses and cholangitis. 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 -If discharging could send with Levaquin 750mg q24h and metronidazole 500mg q8h to compelte 14 days antibiotics. Thank you for the consult, we will continue to follow. Jagjit Ly MD [facility] ([facility]) O: [phone] F: [phone] Subjective Date of service: 08/31/21 Principal diagnosis: abd pain, liver lesions Interval history: Afebrile, white count slightly improved today. Blood cultures with K pneumoniae. Objective - Exam Narrative Exam: Physical Exam: Constitutional: Alert, cooperative. No acute distress Head, Ears, Nose: Normocephalic, atraumatic. External ears, nose normal Eyes: Conjunctivae/corneas clear. No icterus. No ptosis. Neck: Supple, no meningeal signs Oral: dentition fair, no thrush Cardiovascular: S1, S2 normal. Respiratory: Good air entry, clear to auscultation bilaterally GI: Soft, non-tender; bowel sounds normal. No peritoneal signs. Musculoskeletal: No pedal edema, no cyanosis. Skin: No rash or abscess Hem/Lymphatic: No palpable cervical or supraclavicular nodes. No lymphangitis Psych: Mood ok. Affect normal Neurological: Awake, alert, oriented. No gross abnormality - Constitutional Vitals: Vital Signs Temp Pulse Resp BP Pulse Ox 98.6 F 81 18 140/78 98 08/31/21 07:51 08/31/21 07:51 08/31/21 07:51 08/31/21 07:51 08/31/21 10:00 Temperature -Last 24 Hours Temperature 98.6 F Temperature 98.2 F Temperature 98.9 F - Labs CBC & Chem 7: 08/31/21 05:03 08/31/21 05:03 Labs: Abnormal lab results 08/31/21 08/31/21 08/31/21 Range/Units 05:03 05:03 07:55 WBC 18.5 H (4.5-11.0) K/mm3 RBC 2.83 L (3.65-5.03) M/mm3 Hgb 8.3 L (10.1-14.3) gm/dl Hct 25.9 L (30.3-42.9) % RDW 15.8 H (13.2-15.2) % Potassium 2.9 L* (3.6-5.0) mmol/L Chloride 112.6 H (98-107) mmol/L Carbon Dioxide 20 L (22-30) mmol/L POC Glucose 58 L (70-105) mg/dL Calcium 7.7 L (8.4-10.2) mg/dL 08/31/21 Range/Units 12:17 WBC (4.5-11.0) K/mm3 RBC (3.65-5.03) M/mm3 Hgb (10.1-14.3) gm/dl Hct (30.3-42.9) % RDW (13.2-15.2) % Potassium (3.6-5.0) mmol/L Chloride (98-107) mmol/L Carbon Dioxide (22-30) mmol/L POC Glucose 63 L (70-105) mg/dL Calcium (8.4-10.2) mg/dL
[2021-08-31] MEDS: POTASSIUM CHLORIDE 10 MEQ 10 MEQ/100 ML BAG IV SCH ×2 (18:39→18:40)
[2021-09-01] MEDS: HEPARIN 5,000 UNIT/1 ML VIAL SUB-Q SCH ×3 (05:26→22:12)
[2021-09-01] MEDS: PIPERACILLIN/TAZOBACTAM 3.375 3.375 GM/50 ML BAG IV SCH ×3 (05:26→22:12)
--- NOTE | 2021-09-01 10:33 | Gastroenterology Progress Note ---
<NAEL MULLIGAN - Last Filed: 09/01/21 10:30> Assessment and Plan 1. Possible cholangitis - continue Zoysn - WBC 18.5, trending down, continue to monitor - IR (Dr. Brunson) has been consulted for possible PTC placement, will hold off on placement for now and recommended higher level care 2. CBD stones - US 08/25 revealed cholelithiasis, pneumobilia, multiple solid liver masses - CT 08/25 revealed choledocolithiasis w/ large CBD stone - Will likely need ERCP 3. 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 vs pancreatobiliary vs gastric - will need oncology on board, appreciate recs Subjective Date of service: 09/01/21 Principal diagnosis: abd pain, liver lesions Interval history: Pt seen and examined. Laying comfortably in bed. C/o diffuse R sided abd pain that is alleviated when she receives pain medication. No new complaints overnight. Objective - Constitutional Vitals: Temp Pulse Resp BP Pulse Ox 98.6 F 81 18 133/76 99 09/01/21 03:47 09/01/21 03:47 09/01/21 03:47 09/01/21 03:47 09/01/21 03:47 General appearance: no acute distress - EENT ENT: hearing intact - Gastrointestinal General gastrointestinal: Present: soft, tender, non-distended - Neurologic Neurological: alert and oriented x3 - Psychiatric Psychiatric: appropriate mood/affect, cooperative - Labs CBC & Chem 7: 08/31/21 05:03 08/31/21 05:03 Labs: Laboratory Results - last 24 hr 08/31/21 08/31/21 08/31/21 12:17 13:20 13:21 POC Glucose 63 L Phosphorus 2.80 D Magnesium 2.20 08/31/21 08/31/21 08/31/21 16:30 21:29 22:00 POC Glucose 75 59 L 60 L Phosphorus Magnesium 08/31/21 09/01/21 22:52 08:15 POC Glucose 119 H 109 H Phosphorus Magnesium <ALBERTO ORTIZ - Last Filed: 09/01/21 15:22> Assessment and Plan Patient seen and examined. I spent over 50% of time on management and care of the patient. noted IR recommendations. clinically stable. okay for discharge tomorrow from gi stand point with abx per ID recommendations and close f/u with oncology. Objective - Constitutional Vitals: Temp Pulse Resp BP Pulse Ox 98.6 F 81 18 133/76 99 09/01/21 03:47 09/01/21 03:47 09/01/21 03:47 09/01/21 03:47 09/01/21 10:00 - Labs CBC & Chem 7: 08/31/21 05:03 08/31/21 05:03 Labs: Laboratory Results - last 24 hr 08/31/21 08/31/21 08/31/21 16:30 21:29 22:00 POC Glucose 75 59 L 60 L Total Bilirubin Direct Bilirubin Indirect Bilirubin AST ALT Alkaline Phosphatase Total Protein Albumin Albumin/Globulin Ratio 08/31/21 09/01/21 09/01/21 22:52 08:15 11:58 POC Glucose 119 H 109 H 106 H Total Bilirubin Direct Bilirubin Indirect Bilirubin AST ALT Alkaline Phosphatase Total Protein Albumin Albumin/Globulin Ratio 09/01/21 12:15 POC Glucose Total Bilirubin 1.80 H Direct Bilirubin 1.6 H Indirect Bilirubin 0.2 AST 68 H ALT 69 H Alkaline Phosphatase 636 H Total Protein 4.3 L Albumin 1.8 L Albumin/Globulin Ratio 0.7
--- NOTE | 2021-09-01 11:26 | Discharge Summary ---
Providers - Providers Date of Admission: 08/25/21 07:14 Date of discharge: 09/01/21 Attending physician: CASPER ORTIZ MD 08/25/21 04:22 Consult to Physician [CONS] Urgent Comment: Dr. Rivero spoke with Dr. Lin @ 0418 Consulting Provider: ANDREINA LIN Physician Instructions: Reason For Exam: ? cbd stone and pneumobilia 08/25/21 04:23 Consult to Physician [CONS] Urgent Comment: Dr. Rivero spoke with Dr. Pearson @ 0429 Consulting Provider: VIKAS PEARSON Physician Instructions: Reason For Exam: ? cbd stone 08/25/21 07:15 Consult to Dietitian/Nutrition [CONS] Routine Physician Instructions: Reason For Exam: Reason for Consult: Malnutrition 08/25/21 08:23 Consult to Dietitian/Nutrition [CONS] Routine Physician Instructions: Reason For Exam: Reason for Consult: Malnutrition 08/25/21 13:26 Consult to Physician [CONS] Routine Comment: Consulting Provider: HALLE BRAVO Physician Instructions: Reason For Exam: Liver Mass, possible Neoplasm with Mets disease 08/29/21 09:24 Occupational Therapy Evaluate and Treat [CONS] Routine Comment: Reason For Exam: Debility Physical Therapy Evaluation and Treat [CONS] Routine Comment: Reason For Exam: Debility 08/30/21 08:06 Consult to Physician [CONS] Routine Comment: Consulting Provider: DOMONIQUE MCKAY Physician Instructions: Reason For Exam: GNR bacteremia 08/30/21 08:31 Consult to Physician [CONS] Routine Comment: Consulting Provider: WILBER SNOW Physician Instructions: Reason For Exam: elevated leukocytosis ?spesis 08/30/21 09:50 Consult to Physician [CONS] Routine Comment: Consulting Provider: NATALEE BRUNSON Physician Instructions: Reason For Exam: cholangitis Primary care physician: PETE BEECRRA Hospitalization Reason for admission: dizziness, weakness, abd pain Condition: Good Hospital course: HPI: This is a 76-year-old female with HTN and DM who presents to the emergency depa rtment 08/25 with complaints of dizziness, unsteady gait over the past week, right-sided abdominal pain for about a month which started as intermittent sharp right abdominal pain usually at night and in the evening and unintentional weight loss of over 25 pounds over the past couple months. Work-up in the emergency department included a CT abdomen/pelvis which showed cholelithiasis with large distal common bile duct and moderate pneumobilia, 2 ill-defined hypodense lesions in the posterior hepatic segment and anterior hepatic dome likely representing hepatic abscess or metastasis and ultrasound of abdomen showed cholelithiasis, pneumobilia, multiple solid liver masses. Patient was admitted to the hospitalist service to the [facility] with consults to general surgery and GI. Hospital course to date: 08/26: Patient seen and examined, awaiting CT guided biopsy planned for saturday. GI following and will also evaluate timing of ERCP due to the noted "Very large stone in the mid common bile duct". Patient tolerating PO, She verbalized understanding. ABD MRI: IMPRESSION: There are numerous liver masses consistent with a neoplastic or metastatic process. The primary lesion is not clearly evident on this exam. The remaining visualized visceral organs are unremarkable. I suspect this could represent gallbladder cancer or cholangiocarcinoma. Very large stone in the mid common bile duct with diffuse intrahepatic biliary dilatation. 08/27: Patient remains clinically stable improving some. She is planned for CT- guided biopsy of liver mass highly suspicious for malignancy of unknown primary at this time. I discussed with GI no urgency for an ERCP in regards to her common bile duct stone. No evidence of cholangitis at this time 08/28: Patient is a 76-year-old female admitted with abdominal pain that has been ongoing for months with about 25 pounds weight loss. On admission imaging studies revealed multiple solid liver masses suspected to be malignant and choledocholithiasis without cholangitis. Patient clinically stable this morning awaiting CT-guided biopsy. Following the biopsy was discussed with GI if patient can be discharged and followed outpatient for results review. GI will also discuss possible need for ERCP. 08/29: Overnight patient was hypotensive and nonresponsive to normal saline and was transferred from the floor to [facility] for further monitoring on IVF post liver biopsy. This morning patient is confused but reoriented able. Patient's blood pressure is stable. Likely transferred back to the floor today. Started on Zo syn regarding concern for cholangitis. 09/01: Patient was vitally stable by the time of discharge. D/w GI, ok with d/c. IR evaluated patient for possible biliary stent/drain placement. Per their asse ssment, patient does not require surgery at this at this time as biliary tree "self decompressed". Patient will likely need oncology and hepatobiliary surgery. Recommendation for oncology outpatient with Dr. Edge made. She was advise to to establish with oncology and to establish with surgery. Rx for levaquin and metronidazole for completion of cholangitis treatment as well as pain rx for morphine ER rx provided to patient. Her sister will picker feeder. Assessment and Plan: Suspected cholangitis - WBC 18.5 (trending down 21.5 yesterday), BC positve Klebsiella pneumonia, Continue Zosyn -Contune to trend CBC - IR (Dr. Brunson) consulted for possible biliary stent vs biliary drain placement, awaiting recs CBD stones - US 08/25 revealed cholelithiasis, pneumobilia, multiple solid liver masses -CT 08/25 revealed choledocolithiasis w/ large CBD stone -?? 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 GENERAL: The patient appears normally developed, Vital signs as documented. Thin elderly woman, in no distress. HEAD: No signs of head trauma. EYES: Pupils are equal. Extraocular motions intact. EARS: Hearing grossly intact. MOUTH: Oropharynx is normal. NECK: No adenopathy, no JVD. CHEST: Chest with clear breath sounds bilaterally. No wheezes, rales, or rhonchi. CARDIAC: Regular rate and rhythm. S1 and S2, without murmurs, gallops, or rubs. VASCULAR: No Edema. Peripheral pulses normal and equal in all extremities. ABDOMEN: Soft, non tender and non distended. No rebound or guarding, and no masses palpated. Bowel Sounds normal. MUSCULOSKELETAL: Good range of motion of all major joints. Extremities without clubbing, cyanosis or edema. NEUROLOGIC EXAM: Alert and oriented x 4. no focal sensory or strength deficits. PSYCHIATRIC: Mood normal. Upset about diagnosis SKIN: detail exam as documented in skin assessment - Constitutional Vitals: Temp Pulse Resp BP Pulse Ox 98.6 F 81 18 133/76 99 09/01/21 03:47 09/01/21 03:47 09/01/21 03:47 09/01/21 03:47 09/01/21 03:47 Plan Follow up with: CESAR EDGE MD [Staff Physician] - 7 Days PETE BECERRA MD [Primary Care Provider] - 7 Days Prescriptions: metroNIDAZOLE [Flagyl] 500 mg PO Q8HR 14 Days #42 tablet levoFLOXacin [Levaquin] 750 mg PO QDAY 14 Days #14 tablet Morphine ER [Ms Contin ER] 15 mg PO BID 7 Days #14 tab
[2021-09-01] MEDS: INSULIN REGULAR, HUMAN 100 UNITS/1 ML SUB-Q SCH ×3 (11:53→22:11)
[2021-09-01] MEDS: FAMOTIDINE 20 MG TAB PO SCH (11:54)
[2021-09-01 13:11] LABS: Albumin 1.8 g/dL (3.9-5); Bilirubin,Direct 1.6 mg/dL (0-0.2)
[2021-09-01] MEDS: ACETAMINOPHEN 325 MG TAB PO PRN (15:03)
--- NOTE | 2021-09-01 15:25 | Progress Note ---
Assessment and Plan Cultures: Blood culture gram-negative rods A/P: 76-year-old female past medical history hypertension, diabetes #Acute sepsis: With tachycardia and leukocytosis. Secondary to below #Gram-negative billy bacteremia: Likely secondary to intra-abdominal inflammation with her abdominal masses and cholangitis. 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 -If discharging could send with Levaquin 750mg q24h and metronidazole 500mg q8h to compelte 14 days antibiotics. Thank you for the consult, we will continue to follow. Jagjit Ly MD [facility] ([facility]) O: [phone] F: [phone] Subjective Date of service: 09/01/21 Principal diagnosis: abd pain, liver lesions Interval history: Afebrile, no acute change. Objective - Exam Narrative Exam: Physical Exam: Constitutional: Alert, cooperative. No acute distress Head, Ears, Nose: Normocephalic, atraumatic. External ears, nose normal Eyes: Conjunctivae/corneas clear. No icterus. No ptosis. Neck: Supple, no meningeal signs Oral: dentition fair, no thrush Cardiovascular: S1, S2 normal. Respiratory: Good air entry, clear to auscultation bilaterally GI: Soft, non-tender; bowel sounds normal. No peritoneal signs. Musculoskeletal: No pedal edema, no cyanosis. Skin: No rash or abscess Hem/Lymphatic: No palpable cervical or supraclavicular nodes. No lymphangitis Psych: Mood ok. Affect normal Neurological: Awake, alert, oriented. No gross abnormality - Constitutional Vitals: Vital Signs Temp Pulse Resp BP Pulse Ox 98.6 F 81 18 133/76 99 09/01/21 03:47 09/01/21 03:47 09/01/21 03:47 09/01/21 03:47 09/01/21 10:00 Temperature -Last 24 Hours Temperature 98.6 F Temperature 99.2 F Temperature 98.4 F - Labs CBC & Chem 7: 08/31/21 05:03 08/31/21 05:03 Labs: Abnormal lab results 08/31/21 08/31/21 08/31/21 Range/Units 21:29 22:00 22:52 POC Glucose 59 L 60 L 119 H (70-105) mg/dL Total Bilirubin (0.1-1.2) mg/dL Direct Bilirubin (0-0.2) mg/dL AST (5-40) units/L ALT (7-56) units/L Alkaline Phosphatase (35-129) units/L Total Protein (6.3-8.2) g/dL Albumin (3.9-5) g/dL 09/01/21 09/01/21 09/01/21 Range/Units 08:15 11:58 12:15 POC Glucose 109 H 106 H (70-105) mg/dL Total Bilirubin 1.80 H (0.1-1.2) mg/dL Direct Bilirubin 1.6 H (0-0.2) mg/dL AST 68 H (5-40) units/L ALT 69 H (7-56) units/L Alkaline Phosphatase 636 H (35-129) units/L Total Protein 4.3 L (6.3-8.2) g/dL Albumin 1.8 L (3.9-5) g/dL
[2021-09-02] MEDS: PIPERACILLIN/TAZOBACTAM 3.375 3.375 GM/50 ML BAG IV SCH (05:29)
[2021-09-02] MEDS: HEPARIN 5,000 UNIT/1 ML VIAL SUB-Q SCH (05:29)
[2021-09-02 08:32] VITALS: BP 125/78
--- NOTE | 2021-09-02 08:36 | Progress Note ---
Assessment and Plan Assessment and plan: HPI: This is a 76-year-old female with HTN and DM who presents to the emergency department 08/25 with complaints of dizziness, unsteady gait over the past week, right-sided abdominal pain for about a month which started as intermittent sharp right abdominal pain usually at night and in the evening and unintentional weight loss of over 25 pounds over the past couple months. Work-up in the emergency department included a CT abdomen/pelvis which showed cholelithiasis with large distal common bile duct and moderate pneumobilia, 2 ill-defined hypodense lesions in the posterior hepatic segment and anterior hepatic dome likely representing hepatic abscess or metastasis and ultrasound of abdomen showed cholelithiasis, pneumobilia, multiple solid liver masses. Patient was admitted to the hospitalist service to the [facility] with consults to general surgery and GI. Hospital course to date: 08/26: Patient seen and examined, awaiting CT guided biopsy planned for saturday. GI following and will also evaluate timing of ERCP due to the noted "Very large stone in the mid common bile duct". Patient tolerating PO, She verbalized understanding. ABD MRI: IMPRESSION: There are numerous liver masses consistent with a neoplastic or metastatic process. The primary lesion is not clearly evident on this exam. The remaining visualized visceral organs are unremarkable. I suspect this could represent gallbladder cancer or cholangiocarcinoma. Very large stone in the mid common bile duct with diffuse intrahepatic biliary dilatation. 08/27: Patient remains clinically stable improving some. She is planned for CT- guided biopsy of liver mass highly suspicious for malignancy of unknown primary at this time. I discussed with GI no urgency for an ERCP in regards to her common bile duct stone. No evidence of cholangitis at this time 08/28: Patient is a 76-year-old female admitted with abdominal pain that has been ongoing for months with about 25 pounds weight loss. On admission imaging studies revealed multiple solid liver masses suspected to be malignant and choledocholithiasis without cholangitis. Patient clinically stable this morning awaiting CT-guided biopsy. Following the biopsy was discussed with GI if patient can be discharged and followed outpatient for results review. GI will also discuss possible need for ERCP. 08/29: Overnight patient was hypotensive and nonresponsive to normal saline and was transferred from the floor to [facility] for further monitoring on IVF post liver biopsy. This morning patient is confused but reoriented able. Patient's blood pressure is stable. Likely transferred back to the floor today. Started on Zosyn regarding concern for cholangitis. 09/01: Patient was vitally stable by the time of discharge. D/w GI, ok with d/c. IR evaluated patient for possible biliary stent/drain placement. Per their assessment, patient does not require surgery at this at this time as biliary tree "self decompressed". Patient will likely need oncology and hepatobiliary surgery. Recommendation for oncology outpatient with Dr. Garcia made. She was advise to to establish with oncology and to establish with surgery. Rx for levaquin and metronidazole for completion of cholangitis treatment as well as pain rx for morphine ER rx provided to patient. Her sister will cone picker. 09/02: Patient could not obtain ride yesterday. We will leave with sister today this AM. Assessment and Plan: Suspected cholangitis - WBC 18.5 (trending down 21.5 yesterday), BC positve Klebsiella pneumonia, Continue Zosyn -Contune to trend CBC - IR (Dr. Brunson) consulted for possible biliary stent vs biliary drain placement, awaiting recs CBD stones - US 08/25 revealed cholelithiasis, pneumobilia, multiple solid liver masses -CT 08/25 revealed choledocolithiasis w/ large CBD stone -?? possible ERCP - GI following, recs appreciated Liver masses - Preliminary cytology revealed malignant calls consistent w/ carcinoma; awaiting final report -may require transfer to higher acuity facility Acute abd pain -Multifactorial likely due to #1, #2, #3 -Pain management -Supportive care DM2 -POC BG monitoring -SSI coverage -Consistent carb diet HTN -Presently borderline hypotension -Monitor BP -Hold antihypertensive meds for now Hypokalemia -Severe 2.9 -Replete -Monitor electrolytes and replete as needed DVT PPX -On Heparin and SCD's History Interval history: No acute complaints this morning. Reiterated instructions for outpatient follow-up care Hospitalist Physical - Physical exam Narrative exam: Physical Exam: VITAL SIGNS: Reviewed. GENERAL: The patient appears normally developed, Vital signs as documented. Thin elderly woman, in no distress. HEAD: No signs of head trauma. EYES: Pupils are equal. Extraocular motions intact. EARS: Hearing grossly intact. MOUTH: Oropharynx is normal. NECK: No adenopathy, no JVD. CHEST: Chest with clear breath sounds bilaterally. No wheezes, rales, or rhonchi. CARDIAC: Regular rate and rhythm. S1 and S2, without murmurs, gallops, or r ubs. VASCULAR: No Edema. Peripheral pulses normal and equal in all extremities. ABDOMEN: Soft, non tender and non distended. No rebound or guarding, and no masses palpated. Bowel Sounds normal. MUSCULOSKELETAL: Good range of motion of all major joints. Extremities without clubbing, cyanosis or edema. NEUROLOGIC EXAM: Alert and oriented x 4. no focal sensory or strength deficits. PSYCHIATRIC: Mood normal. Upset about diagnosis SKIN: detail exam as documented in skin assessment - Constitutional Vitals: Temp Pulse Resp BP Pulse Ox 99.4 F 84 18 125/78 99 09/02/21 07:37 09/02/21 07:37 09/02/21 07:37 09/02/21 07:37 09/02/21 07:50 General appearance: Present: no acute distress HEART Score - HEART Score Troponin: Troponin T < 0.010 ng/mL (0.00-0.029) 08/25/21 03:13 Results - Labs CBC & Chem 7: 08/31/21 05:03 08/31/21 05:03 Labs: Laboratory Last Values WBC 18.5 K/mm3 (4.5-11.0) H 08/31/21 05:03 RBC 2.83 M/mm3 (3.65-5.03) L 08/31/21 05:03 Hgb 8.3 gm/dl (10.1-14.3) L 08/31/21 05:03 Hct 25.9 % (30.3-42.9) L 08/31/21 05:03 MCV 91 fl (79-97) 08/31/21 05:03 MCH 29 pg (28-32) 08/31/21 05:03 MCHC 32 % (30-34) 08/31/21 05:03 RDW 15.8 % (13.2-15.2) H 08/31/21 05:03 Plt Count 219 K/mm3 (140-440) 08/31/21 05:03 Lymph % (Auto) 10.7 % (13.4-35.0) L 08/26/21 06:38 [place] % (Auto) 10.4 % (0.0-7.3) H 08/26/21 06:38 Eos % (Auto) 0.4 % (0.0-4.3) 08/26/21 06:38 Baso % (Auto) 0.6 % (0.0-1.8) 08/26/21 06:38 Lymph # (Auto) 0.8 K/mm3 (1.2-5.4) L 08/26/21 06:38 [place] # (Auto) 0.8 K/mm3 (0.0-0.8) 08/26/21 06:38 Eos # (Auto) 0.0 K/mm3 (0.0-0.4) 08/26/21 06:38 Baso # (Auto) 0.0 K/mm3 (0.0-0.1) 08/26/21 06:38 Add Manual Diff Complete 08/29/21 01:23 Total Counted 100 08/29/21 01:23 Seg Neutrophils % [place] 08/29/21 01:23 Seg Neuts % (Manual) 99.0 % (40.0-70.0) H 08/29/21 01:23 Band Neutrophils % 0 % 08/29/21 01:23 Lymphocytes % (Manual) 1.0 % (13.4-35.0) L 08/29/21 01:23 Reactive Lymphs % (Man) 0 % 08/29/21 01:23 Monocytes % (Manual) 0 % (0.0-7.3) 08/29/21 01:23 Eosinophils % (Manual) 0 % (0.0-4.3) 08/29/21 01:23 Basophils % (Manual) 0 % (0.0-1.8) 08/29/21 01:23 Metamyelocytes % 0 % 08/29/21 01:23 Myelocytes % 0 % 08/29/21 01:23 Promyelocytes % 0 % 08/29/21 01:23 Blast Cells % 0 % 08/29/21 01:23 Nucleated RBC % 1.0 % (0.0-0.9) H 08/29/21 01:23 Seg Neutrophils # 6.0 K/mm3 (1.8-7.7) 08/26/21 06:38 Seg Neutrophils # Man 21.3 K/mm3 (1.8-7.7) H 08/29/21 01:23 Band Neutrophils # 0.0 K/mm3 08/29/21 01:23 Lymphocytes # (Manual) 0.2 K/mm3 (1.2-5.4) L 08/29/21 01:23 Abs React Lymphs (Man) 0.0 K/mm3 08/29/21 01:23 Monocytes # (Manual) 0.0 K/mm3 (0.0-0.8) 08/29/21 01:23 Eosinophils # (Manual) 0.0 K/mm3 (0.0-0.4) 08/29/21 01:23 Basophils # (Manual) 0.0 K/mm3 (0.0-0.1) 08/29/21 01:23 Metamyelocytes # 0.0 K/mm3 08/29/21 01:23 Myelocytes # 0.0 K/mm3 08/29/21 01:23 Promyelocytes # 0.0 K/mm3 08/29/21 01:23 Blast Cells # 0.0 K/mm3 08/29/21 01:23 WBC Morphology Not Reportable 08/29/21 01:23 Hypersegmented Neuts Not Reportable 08/29/21 01:23 Hyposegmented Neuts Not Reportable 08/29/21 01:23 Hypogranular Neuts Not Reportable 08/29/21 01:23 Smudge Cells Not Reportable 08/29/21 01:23 Toxic Granulation Not Reportable 08/29/21 01:23 Toxic Vacuolation Not Reportable 08/29/21 01:23 Dohle Bodies Not Reportable 08/29/21 01:23 Pelger-Huet Anomaly Not Reportable 08/29/21 01:23 Sam Rods Not Reportable 08/29/21 01:23 Platelet Estimate Consistent w auto 08/29/21 01:23 Clumped Platelets Not Reportable 08/29/21 01:23 Plt Clumps, EDTA Not Reportable 08/29/21 01:23 Large Platelets Not Reportable 08/29/21 01:23 Giant Platelets Not Reportable 08/29/21 01:23 Platelet Satelliting Not Reportable 08/29/21 01:23 Plt Morphology Comment Not Reportable 08/29/21 01:23 RBC Morphology Not Reportable 08/29/21 01:23 Dimorphic RBCs Not Reportable 08/29/21 01:23 Polychromasia Not Reportable 08/29/21 01:23 Hypochromasia Not Reportable 08/29/21 01:23 Poikilocytosis Not Reportable 08/29/21 01:23 Anisocytosis 1+ 08/29/21 01:23 Microcytosis Not Reportable 08/29/21 01:23 Macrocytosis Not Reportable 08/29/21 01:23 Spherocytes Not Reportable 08/29/21 01:23 Pappenheimer Bodies Not Reportable 08/29/21 01:23 Sickle Cells Not Reportable 08/29/21 01:23 Target Cells Not Reportable 08/29/21 01:23 Tear Drop Cells Not Reportable 08/29/21 01:23 Ovalocytes Not Reportable 08/29/21 01:23 Helmet Cells Not Reportable 08/29/21 01:23 Hugo-Lemont Bodies Not Reportable 08/29/21 01:23 Kirvin Rings Not Reportable 08/29/21 01:23 Ellie Cells Not Reportable 08/29/21 01:23 Bite Cells Not Reportable 08/29/21 01:23 Crenated Cell Not Reportable 08/29/21 01:23 Elliptocytes Not Reportable 08/29/21 01:23 Acanthocytes (Spur) Not Reportable 08/29/21 01:23 Rouleaux Not Reportable 08/29/21 01:23 Hemoglobin C Crystals Not Reportable 08/29/21 01:23 Schistocytes Not Reportable 08/29/21 01:23 Malaria parasites Not Reportable 08/29/21 01:23 Irving Bodies Not Reportable 08/29/21 01:23 Hem Pathologist Commnt No 08/29/21 01:23 PT 13.8 Sec. (12.2-14.9) 08/25/21 05:12 INR 0.96 (0.87-1.13) 08/25/21 05:12 APTT 30.3 Sec. (24.2-36.6) 08/25/21 05:12 Sodium 144 mmol/L (137-145) 08/31/21 05:03 Potassium 2.9 mmol/L (3.6-5.0) L* 08/31/21 05:03 Chloride 112.6 mmol/L (98-107) H 08/31/21 05:03 Carbon Dioxide 20 mmol/L (22-30) L 08/31/21 05:03 Anion Gap 14 mmol/L 08/31/21 05:03 BUN 11 mg/dL (7-17) 08/31/21 05:03 Creatinine 0.8 mg/dL (0.6-1.2) 08/31/21 05:03 Estimated GFR > 60 ml/min 08/31/21 05:03 BUN/Creatinine Ratio 14 % 08/31/21 05:03 Glucose 75 mg/dL (65-100) 08/31/21 05:03 POC Glucose 67 mg/dL (70-105) L 09/02/21 07:36 Lactic Acid 1.50 mmol/L (0.7-2.0) 08/25/21 05:29 Calcium 7.7 mg/dL (8.4-10.2) L 08/31/21 05:03 Phosphorus 2.80 mg/dL (2.5-4.5) D 08/31/21 13:21 Magnesium 2.20 mg/dL (1.7-2.3) 08/31/21 13:20 Iron 32 ug/dL (37-170) L 08/26/21 06:38 TIBC 135 mcg/dL (250-450) L 08/26/21 06:38 Total Bilirubin 1.80 mg/dL (0.1-1.2) H 09/01/21 12:15 Direct Bilirubin 1.6 mg/dL (0-0.2) H 09/01/21 12:15 Indirect Bilirubin 0.2 mg/dL 09/01/21 12:15 AST 68 units/L (5-40) H 09/01/21 12:15 ALT 69 units/L (7-56) H 09/01/21 12:15 Alkaline Phosphatase 636 units/L (35-129) H 09/01/21 12:15 Total Creatine Kinase 51 units/L (30-135) 08/25/21 03:13 Troponin T < 0.010 ng/mL (0.00-0.029) 08/25/21 03:13 Total Protein 4.3 g/dL (6.3-8.2) L 09/01/21 12:15 Albumin 1.8 g/dL (3.9-5) L 09/01/21 12:15 Albumin/Globulin Ratio 0.7 % 09/01/21 12:15 Carcinoembryonic Ag 20.8 ng/mL (0.0-2.4) H 08/26/21 06:38 CA 19-9 Antigen 5 U/mL (<34) 08/26/21 06:38 TSH 2.440 mlU/mL (0.270-4.200) 08/25/21 03:13 Urine Color Yellow (Yellow) 08/26/21 05:09 Urine Turbidity Clear (Clear) 08/26/21 05:09 Urine pH 5.0 (5.0-7.0) 08/26/21 05:09 Ur Specific [place] 1.020 (1.003-1.030) 08/26/21 05:09 Urine Protein <15 mg/dl mg/dL (Negative) 08/26/21 05:09 Urine Glucose (UA) >=500 mg/dL (Negative) 08/26/21 05:09 Urine Ketones 20 mg/dL (Negative) 08/26/21 05:09 Urine Blood Mod (Negative) 08/26/21 05:09 Urine Nitrite Neg (Negative) 08/26/21 05:09 Urine Bilirubin Neg (Negative) 08/26/21 05:09 Urine Urobilinogen < 2.0 mg/dL (<2.0) 08/26/21 05:09 Ur Leukocyte Esterase Mod (Negative) 08/26/21 05:09 Urine WBC (Auto) 33.0 /HPF (0.0-6.0) H 08/26/21 05:09 Urine RBC (Auto) 6.0 /HPF (0.0-6.0) 08/26/21 05:09 U Epithel Cells (Auto) 3.0 /HPF (0-13.0) 08/26/21 05:09 Urine Bacteria (Auto) 1+ /HPF (Negative) 08/26/21 05:09 Calcium Oxalate Crystal Few 08/26/21 05:09 Urine Mucus 2+ /HPF 08/26/21 05:09 Blood Type O POSITIVE 08/29/21 04:34 Antibody Screen Negative 08/29/21 04:34 Pham/IV: Voiding Method External Female Catheter Active Medications - Current Medications Current Medications: Generic Name Dose Route Start Last Admin Trade Name Freq PRN Reason Stop Dose Admin Acetaminophen 650 mg 08/25/21 07:13 09/01/21 15:03 Acetaminophen 325 Mg Tab PO 650 mg Q4H PRN Administration Pain MILD(1-3)/Fever >100.5/[place] Albuterol 2.5 mg 08/25/21 07:13 Albuterol 2.5 Mg/3 Ml Nebu IH Q4HRT PRN Shortness Of Breath Dextrose 50 ml 08/25/21 08:23 08/31/21 22:20 Dextrose 50% In Water (25gm) 50 Ml Syringe IV 50 ml Q30MIN PRN Administration Hypoglycemia Protocol Famotidine 20 mg 08/29/21 10:00 09/01/21 11:54 Famotidine 20 Mg Tab PO 20 mg DAILY PK Administration Heparin Sodium (Porcine) 5,000 unit 08/25/21 14:00 09/02/21 05:29 Heparin 5,000 Unit/1 Ml Vial SUB-Q 5,000 unit Q8HR PK Administration Piperacillin Sod/Tazobactam Sod 3.375 gm in 50 mls @ 100 mls/hr 08/30/21 14:00 09/02/21 05:29 Zosyn/Ns 3.375gm/50ml IV 100 mls/hr Q8HR PK Administration Protocol Insulin Human Regular 0 units 08/25/21 11:30 09/01/21 22:11 Insulin Regular, Human 100 Units/1 Ml SUB-Q Not Given [facility] Protocol Morphine Sulfate 2 mg 08/25/21 07:13 08/31/21 09:07 Morphine 2 Mg/1 Ml Inj IV 2 mg Q4H PRN Administration Pain, Moderate (4-6) Naloxone HCl 0.1 mg 08/25/21 07:13 Naloxone 0.4 Mg/1 Ml Inj IV Q2MIN PRN Res Rate </= 8 or 02 SAT < 92% Ondansetron HCl 4 mg 08/25/21 07:13 09/01/21 05:35 Ondansetron 4 Mg/2 Ml Inj IV 4 mg Q4H PRN Administration Nausea And Vomiting Sodium Chloride 10 ml 08/25/21 10:00 09/01/21 22:12 Sodium Chloride 0.9% 10 Ml Flush Syringe IV 10 ml BID PK Administration Sodium Chloride 10 ml 08/25/21 07:13 Sodium Chloride 0.9% 10 Ml Flush Syringe IV PRN PRN LINE FLUSH Nutrition/Malnutrition Assess - Dietary Evaluation Nutrition/Malnutrition Findings: Nutrition Notes Start: 08/25/21 12:28 Freq: Status: Active Protocol: Document 08/28/21 15:00 STEF (Rec: 08/28/21 15:22 STEF [id number]) Nutrition Notes Initial or Follow up Brief Note Current Diagnosis Diabetes,Hypertension Other Pertinent Diagnosis Choledocholithiasis, Liver Masses & Abscesses, Cystitis, Pneumobilia, ... Current Diet Full Liquids Diet (since D ). Height 5 ft 4 in Weight 50.802 kg [place] Body Weight (kg) 54.54 BMI 19.2 Intake Prior to Admission Poor Weight change and time frame Pt states having loss about 25 lb of body weight C[employer] JACQUARD. No body weight change reported in 3 days. Weight Status Appropriate Subjective/Other Information RD consult for routine F/U on dietary advancement assessment . Pt advanced to PO to start tonight, no reports available yet on Pt's PO intake of meals , will assess at F/U. Swallow assessment passed on 08/26 and 08/28, acccording to Bedside Swallow Screen notes. Pt is on Room Air, O2 saturation @ 100%, according to Physical Assessment Historty notes. Pt has missing teeth, according to Physical Assessment Historty notes. Pt states having loss about 25 lb within the last few months , according to Progress notes. Pt continues in critical condition, not a candidate for Nutrition Education at the time, will assess feasibility on F/U. Percent of energy/protein needs met: Prescribed Full Liquids Diet provides for energy/protein needs (1,155 Kcal/37 g) during LOS. Nutrition Intervention Follow-Up By: 09/04/21 Additional Comments Nutrition education will be provided at F/U, if feasible. Start monitoring food tolerance, %PO intake of meals , and BM.
[2021-09-02] MEDS: INSULIN REGULAR, HUMAN 100 UNITS/1 ML SUB-Q SCH (09:13)
[2021-09-02] MEDS: FAMOTIDINE 20 MG TAB PO SCH (09:14)
--- NOTE | 2021-09-02 11:03 | Gastroenterology Progress Note ---
Assessment and Plan 1. Possible cholangitis - continue Zoysn - WBC 18.5, trending down, continue to monitor - IR (Dr. Brunson) has been consulted for possible PTC placement, will hold off on placement for now and recommended higher level care 2. CBD stones - US 08/25 revealed cholelithiasis, pneumobilia, multiple solid liver masses - CT 08/25 revealed choledocolithiasis w/ large CBD stone - Will likely need ERCP 3. 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 vs pancreatobiliary vs gastric - will need oncology on board, appreciate recs - pt ok to dc from GI standpoint with follow up Oncology as outpt Subjective Date of service: 09/02/21 Principal diagnosis: abd pain, liver lesions Interval history: - no new GI complaints overnight Objective - Constitutional Vitals: Temp Pulse Resp BP Pulse Ox 99.4 F 84 18 125/78 99 09/02/21 07:37 09/02/21 07:37 09/02/21 07:37 09/02/21 07:37 09/02/21 07:50 General appearance: no acute distress - EENT Eyes: PERRL - Respiratory Respiratory: bilateral: CTA - Cardiovascular Rhythm: regular Heart Sounds: Present: S1 & S2 - Gastrointestinal General gastrointestinal: Present: soft, non-tender, non-distended - Labs CBC & Chem 7: 08/31/21 05:03 08/31/21 05:03 Labs: Laboratory Results - last 24 hr 09/01/21 09/01/21 09/01/21 11:58 12:15 16:23 POC Glucose 106 H 77 Total Bilirubin 1.80 H Direct Bilirubin 1.6 H Indirect Bilirubin 0.2 AST 68 H ALT 69 H Alkaline Phosphatase 636 H Total Protein 4.3 L Albumin 1.8 L Albumin/Globulin Ratio 0.7 09/01/21 09/02/21 20:48 07:36 POC Glucose 89 67 L Total Bilirubin Direct Bilirubin Indirect Bilirubin AST ALT Alkaline Phosphatase Total Protein Albumin Albumin/Globulin Ratio
== END 2021-09-02 12:10 | disposition home health service (06) | DRG 871 ==
LOC: ED 13:55 → 3A 08-25 07:14 → CC1 08-29 03:08 → 4A 08-29 23:47
PROVIDERS: ADMIT Internal Medicine; ATTEND Internal Medicine
PROC: 0FB13ZX Excision of Right Lobe Liver, Percutaneous Approach, Diagnostic (ICD-10-PCS; principal; 2021-08-28)
DX: A41.9 Sepsis, unspecified organism (principal); K75.0 Abscess of liver; J96.01 Acute respiratory failure with hypoxia; N30.00 Acute cystitis without hematuria; E87.1 Hypo-osmolality and hyponatremia; E44.0 Moderate protein-calorie malnutrition; K83.09 Other cholangitis; C22.1 Intrahepatic bile duct carcinoma; K80.50 Calculus of bile duct without cholangitis or cholecystitis without obstruction; R16.0 Hepatomegaly, not elsewhere classified; I10 Essential (primary) hypertension; E11.9 Type 2 diabetes mellitus without complications; Z82.49 Family history of ischemic heart disease and other diseases of the circulatory system; E86.0 Dehydration; D72.829 Elevated white blood cell count, unspecified
CPT/HCPCS: 36415; 47000; 70450; 71045; 74176; 74177; 74183; 76705; 77012; 80048; 80053; 80076; 81001; 82106; 82140; 82378; 82550; 82962; 83550; 83735; 84100; 84443; 84484; 85007; 85014; 85018; 85025; 85027; 85610; 85730; 86301; 86850; 86900; 86901; 87040; 87076; 87086; 87186; 88104; 88172; 88177; 88307; 88341; 88342; 93005; G0378; J3490; J7510; Q9967; A9575; J1170; J1644; J1815; J2270; J2405; J2543; J2916; J3475; J3480; J7030; J7040; J7042; J7120